=== PATIENT | female | born 1945 | race Native Hawaiian/Other Pacific Islander ===

== ENCOUNTER 2016-05-03 08:38 | Emergency (ER) | payer MEDICARE, MEDICAID ==
[2016-05-03] MEDS ORDERED: FUROSEMIDE 40 MG/4 ML VIAL IVP STA (09:48)
[2016-05-03] MEDS ORDERED: FUROSEMIDE 20 MG/2 ML VIAL IVP ONE (09:53)
[2016-05-03] MEDS ORDERED: AZITHROMYCIN 250 MG TABLET PO STA (10:35)
[2016-05-03] MEDS ORDERED: AZITHROMYCIN 250 MG TABLET PO ONE (10:39)
== END 2016-05-03 11:25 | disposition home or self-care (01) ==
DX: J18.9 Pneumonia, unspecified organism (principal); N30.00 Acute cystitis without hematuria; I50.9 Heart failure, unspecified; I48.91 Unspecified atrial fibrillation; Z79.01 Long term (current) use of anticoagulants; R01.1 Cardiac murmur, unspecified
CPT/HCPCS: 36415; 71020; 80053; 80162; 81001; 83690; 83880; 84484; 85025; 87077; 87086; 87181; 93005; 93010; 96374; 99283; 99284; A9270

== ENCOUNTER 2016-10-06 09:44 | Outpatient (CLI) | payer MEDICARE, MEDICAID ==
[2016-10-06 19:15] LABS: BASOPHILS % (AUTO) 0.3 %; EOSINOPHILS % (AUTO) 0.1 %; HCT - HEMATOCRIT 36.9 % (37.0-47.0); HGB - HEMOGLOBIN 12.2 g/dL (12.0-16.0); LYMPHOCYTES # (AUTO) 0.8 10^3/uL (1.5-3.5); LYMPHOCYTES % (AUTO) 9.7 %; MEAN CORPUSCULAR HEMOGLOBIN 31.8 pg (27.0-31.0); MEAN CORPUSCULAR HGB CONC 33.2 g/dL (32.0-36.0); MEAN PLATELET VOLUME 7.6 fL (7.9-10.8); MONOCYTES # (AUTO) 0.5 10^3/uL (0.0-1.0); MONOCYTES % (AUTO) 6.8 %; NEUTROPHILS # (AUTO) 6.6 10^3/uL (1.5-6.6); NEUTROPHILS % (AUTO) 83.1 %; RED BLOOD COUNT 3.84 10^6/uL (4.20-5.40); RED CELL DISTRIBUTION WIDTH 12.4 % (12.0-15.0)
[2016-10-06 20:25] LABS: ALBUMIN/GLOBULIN RATIO 1.4 (1.0-2.2); BILIRUBIN,TOTAL 0.5 mg/dL (0.2-1.0); BUN - BLOOD UREA NITROGEN 16 mg/dL (6-20); CALCIUM 9.4 mg/dL (8.5-10.3); CARBON DIOXIDE - CO2 32 mmol/L (21-32); CHLORIDE 98 mmol/L (101-111); CREATININE 0.7 mg/dL (0.4-1.0); GFR - MDRD 82 (>89); GLUCOSE 137 mg/dL (70-100); POTASSIUM 3.7 mmol/L (3.5-5.0); SODIUM 139 mmol/L (135-145); TOTAL PROTEIN 7.3 g/dL (6.7-8.2)
[2016-10-06 20:52] LABS: THYROID STIMULATING HORMONE 2.53 uIU/mL (0.34-5.60)
[2016-10-06 20:58] LABS: HEMOGLOBIN A1C 0.56 g/dL
== END 2016-10-06 23:59 ==
LOC: LAB.WCP 09:44
PROVIDERS: ATTEND Physician Assistant Medical
DX: G62.9 Polyneuropathy, unspecified (principal)
CPT/HCPCS: 36415; 80053; 80162; 82607; 83036; 84207; 84425; 84443; 85025

== ENCOUNTER 2016-10-21 13:03 | Outpatient (CLI) | payer MEDICARE, MEDICAID ==
--- NOTE | 2016-10-24 10:50 | Ultrasound Report ---
BILATERAL LOWER EXTREMITY ARTERIAL DUPLEX: 10/21/2016 CLINICAL INDICATION: Peripheral vascular disease. COMPARISON: 07/06/2015. TECHNIQUE: Real-time sonographic vascular imaging was performed by the electrician constructor supervisor through the lower extremities utilizing both color-flow and Doppler spectral analysis. Multiple signs and displays sales representative static images were saved for review. RIGHT SIDE SITE PSV WAVEFORM STEN DITCHING MACHINE ENGINEER 58 biphasic PSFA 75 biphasic MSFA 57 biphasic DSFA 61 biphasic PFA 95 biphasic POP 46 biphasic NAIF 38 biphasic STEAM PLANT RECORDS CLERK 79 biphasic PER 47 biphasic DPA 25 biphasic LEFT SIDE SITE PSV WAVEFORM STEN DITCHING MACHINE ENGINEER 84 triphasic PSFA 72 triphasic MSFA 64 biphasic DSFA 57 biphasic PFA 72 triphasic POP 48 biphasic NAIF 51 biphasic STEAM PLANT RECORDS CLERK 86 biphasic PER 66 monophasic FINDINGS: RIGHT LEG: Waveforms are predominantly biphasic. There is no evidence of a focal velocity increase to suggest a hemodynamically significant stenosis. LEFT LEG: Waveforms are predominantly biphasic. There is no evidence of a focal velocity increase to suggest a hemodynamically significant stenosis. IMPRESSION: NO EVIDENCE OF A HEMODYNAMICALLY SIGNIFICANT ARTERIAL STENOSIS IN EITHER LEG. NO SIGNIFICANT INTERVAL CHANGE. MTDD
== END 2016-10-21 13:04 | disposition home or self-care (01) ==
LOC: DI 13:03
PROVIDERS: ATTEND Physician Assistant Medical
DX: I73.9 Peripheral vascular disease, unspecified (principal); G62.9 Polyneuropathy, unspecified
CPT/HCPCS: 93925

== ENCOUNTER 2017-01-10 08:00 | Outpatient (CLI) | payer MEDICARE, MEDICAID ==
[2017-01-10 19:33] LABS: BUN - BLOOD UREA NITROGEN 10 mg/dL (6-20); CARBON DIOXIDE - CO2 34 mmol/L (21-32); CHLORIDE 99 mmol/L (101-111); CREATININE 0.7 mg/dL (0.4-1.0); GFR - MDRD 82 (>89); GLUCOSE 119 mg/dL (70-100); POTASSIUM 3.5 mmol/L (3.5-5.0); SODIUM 137 mmol/L (135-145)
== END 2017-01-10 08:01 | disposition home or self-care (01) ==
LOC: LAB.WCP 08:00
PROVIDERS: ATTEND Internal Medicine Cardiovascular Disease
DX: I48.2 Chronic atrial fibrillation (principal); I36.1 Nonrheumatic tricuspid (valve) insufficiency; I27.2 Other secondary pulmonary hypertension; I10 Essential (primary) hypertension
CPT/HCPCS: 36415; 80048; 80162

== ENCOUNTER 2017-02-01 13:20 | Outpatient (CLI) | payer MEDICARE, MEDICAID ==
[2017-02-01 12:52] LABS: CALCIUM 9.2 mg/dL (8.5-10.3); CREATININE 0.8 mg/dL (0.4-1.0); POTASSIUM 3.6 mmol/L (3.5-5.0)
== END 2017-02-01 13:21 | disposition home or self-care (01) ==
LOC: LAB.WCP 13:20
PROVIDERS: ATTEND Internal Medicine Cardiovascular Disease
DX: I48.2 Chronic atrial fibrillation (principal)
CPT/HCPCS: 36415; 80048

== ENCOUNTER 2017-05-19 08:00 | Outpatient (CLI) | payer MEDICARE, MEDICAID ==
[2017-05-19 18:55] LABS: BASOPHILS # (AUTO) 0.1 10^3/uL (0.0-0.1); BASOPHILS % (AUTO) 1.1 %; EOSINOPHILS # (AUTO) 0.2 10^3/uL (0.0-0.7); EOSINOPHILS % (AUTO) 3.5 %; HGB - HEMOGLOBIN 13.1 g/dL (12.0-16.0); LYMPHOCYTES # (AUTO) 1.2 10^3/uL (1.5-3.5); LYMPHOCYTES % (AUTO) 21.9 %; MEAN CORPUSCULAR HEMOGLOBIN 30.4 pg (27.0-31.0); MEAN CORPUSCULAR HGB CONC 32.4 g/dL (32.0-36.0); MEAN CORPUSCULAR VOLUME 93.9 fL (81.0-99.0); MEAN PLATELET VOLUME 7.9 fL (7.9-10.8); MONOCYTES # (AUTO) 0.5 10^3/uL (0.0-1.0); MONOCYTES % (AUTO) 9.8 %; NEUTROPHILS # (AUTO) 3.4 10^3/uL (1.5-6.6); NEUTROPHILS % (AUTO) 63.7 %; PLT - PLATELET COUNT 219 10^3/uL (130-450); RED CELL DISTRIBUTION WIDTH 12.9 % (12.0-15.0); WHITE BLOOD COUNT 5.3 x10^3/uL (4.8-10.8)
[2017-05-19 19:08] LABS: ALBUMIN 4.1 g/dL (3.2-5.5); ALBUMIN/GLOBULIN RATIO 1.2 (1.0-2.2); ALKALINE PHOSPHATASE 63 IU/L (42-121); ALT ALANINE AMINOTRANSFERASE 18 IU/L (10-60); AST ASPARTATE AMINOTRANSFERASE 32 IU/L (10-42); BILIRUBIN,TOTAL 0.7 mg/dL (0.2-1.0); BUN - BLOOD UREA NITROGEN 12 mg/dL (6-20); CARBON DIOXIDE - CO2 30 mmol/L (21-32); CHLORIDE 99 mmol/L (101-111); CREATININE 0.9 mg/dL (0.4-1.0); GFR - MDRD 61 (>89); GLUCOSE 105 mg/dL (70-100); SODIUM 136 mmol/L (135-145); TOTAL PROTEIN 7.5 g/dL (6.7-8.2)
== END 2017-05-19 08:01 | disposition home or self-care (01) ==
LOC: LAB.WCP 08:00
PROVIDERS: ATTEND Physician Assistant Medical
DX: Z51.81 Encounter for therapeutic drug level monitoring (principal); I48.0 Paroxysmal atrial fibrillation
CPT/HCPCS: 36415; 80053; 84443; 85025; 87640

== ENCOUNTER 2017-05-26 12:08 | Outpatient (CLI) | payer MEDICARE, MEDICAID ==
[2017-05-26] MEDS ORDERED: IOPAMIDOL-300 100 ML VIAL ONE (13:59)
[2017-05-26] MEDS ORDERED: IOPAMIDOL-300 100 ML VIAL IVP ONE (14:00)
--- NOTE | 2017-05-29 13:53 | CT Report ---
CT CHEST WITH CONTRAST: 05/26/2017 CLINICAL INDICATION: Shortness of breath, history of pneumonia. COMPARISON: 10/03/2015, chest x-ray of 05/19/2017. TECHNIQUE: Axial CT images of the chest were obtained with 80 mL Isovue 300 IV. FINDINGS: The heart and great vessels demonstrate mild atherosclerotic calcification. No hilar or mediastinal lymphadenopathy is present. The previously seen large hiatal hernia, containing the stomach and a portion of the colon, appears stable. Adjacent atelectasis appears unchanged from previous CT of 10/03/2015. No new infiltrate, effusion, or pneumothorax is present. Osseous structures demonstrate degenerative changes. Limited evaluation of upper abdominal structures demonstrates normal adrenal glands. IMPRESSION: STABLE LARGE HIATAL HERNIA WITH ASSOCIATED ATELECTASIS. NO SIGNIFICANT INTERVAL CHANGE FROM 10/03/2015. In accordance with CT protocol optimization, one or more of the following dose reduction techniques were utilized for this exam: automated exposure control, adjustment of mA and/or KV based on patient size, or use of iterative reconstructive technique. TD: 05/26/2017 17:22 [email or web address]
== END 2017-05-26 12:09 | disposition home or self-care (01) ==
LOC: DI 12:08
PROVIDERS: ATTEND Physician Assistant Medical
DX: K44.9 Diaphragmatic hernia without obstruction or gangrene (principal); J98.11 Atelectasis
CPT/HCPCS: 71260; Q9967

== ENCOUNTER 2017-07-10 12:04 | Outpatient (CLI) | payer MEDICARE, MEDICAID | END 2017-07-10 12:05 | disposition home or self-care (01) | LOC: LAB 12:04 | PROVIDERS: ATTEND Orthopaedic Surgery | DX: M17.12 Unilateral primary osteoarthritis, left knee (principal) | CPT/HCPCS: 36415; 86850; 86900; 86901 ==

== ENCOUNTER 2017-07-11 06:12 | Inpatient (IN) | payer MEDICARE, MEDICAID ==
[2017-07-11] MEDS ORDERED: ceFAZolin 2 GM/50 ML 2 GM/50 ML BAG IV ONE (06:29)
[2017-07-11] MEDS ORDERED: ACETAMINOPHEN 1,000 MG/100 ML 100 ML IV ONE ×2 (06:30→08:30)
[2017-07-11] MEDS ORDERED: CELECOXIB 100 MG CAPSULE PO ONE (06:30)
[2017-07-11] MEDS ORDERED: LACTATED RINGERS 1,000 ML IV ONE ×2 (07:00→11:15)
[2017-07-11] MEDS ORDERED: SODIUM CHLORIDE 0.9% 30 ML ONE (07:22)
[2017-07-11] MEDS ORDERED: SODIUM CHLORIDE 0.9% 10 ML ONE (07:49)
[2017-07-11] MEDS ORDERED: DEXAMETHASONE 4 MG/ML VIAL IVP ONE (08:30)
[2017-07-11] MEDS ORDERED: PHENYLEPHRINE 10 MG/ML VIAL IV ONE (08:30)
[2017-07-11] MEDS ORDERED: LIDOCAINE-MPF 2% 5 ML VIAL IM ONE (08:30)
[2017-07-11] MEDS ORDERED: SODIUM CHLORIDE 0.9% 10 ML VIAL IV ONE (08:30)
[2017-07-11] MEDS ORDERED: fentaNYL 100 MCG/2 ML VIAL IVP ONE (08:30)
[2017-07-11] MEDS ORDERED: TRANEXAMIC ACID 1,000 MG/10 ML VIAL IV ONE (08:30)
[2017-07-11] MEDS: BUPIVACAINE 0.5% PF 10 ML VIAL ONE ×2 (08:30→09:35)
[2017-07-11] MEDS ORDERED: ONDANSETRON 4 MG/2 ML VIAL IVP ONE (08:30)
[2017-07-11] MEDS ORDERED: MIDAZOLAM 2 MG/2 ML VIAL IVP ONE (08:30)
[2017-07-11] MEDS ORDERED: ePHEDrine 50 MG/ML VIAL IVP ONE (08:30)
[2017-07-11] MEDS: EPINEPHrine 1 MG/ML AMP ONE ×2 (08:31→09:00)
[2017-07-11] MEDS: KETOROLAC 15 MG/ML VIAL ONE ×2 (08:31→09:00)
[2017-07-11] MEDS: ROPIVACAINE 0.5% PF 20 ML AMPULE ONE ×2 (08:33→09:00)
[2017-07-11] MEDS ORDERED: MORPHINE PF 10 MG/10 ML AMP SUBQ ONE ×2 (08:33→09:00)
[2017-07-11] MEDS ORDERED: BUPIVACAINE 0.5% PF 10 ML VIAL ONE (08:43)
--- NOTE | 2017-07-11 10:09 | OPERATIVE REPORT ---
Operative Report - General Admit Date: 07/11/17 Procedure Date: 07/11/17 Planned Procedure: left TKA Pre-Op Diagnosis: DJD left knee Procedure Performed: Left Total Knee Arthroplasty Post Op Diagnosis: same - Procedure Note Primary Surgeon: elmer Anesthesia Technique: Combo spinal/epidural, General ET tube Estimated Blood Loss (mL): 100 - Other Other Information/Narrative: The patient is expected to have inpatient hospitalization under 96 Hours.
[2017-07-11] MEDS ORDERED: PROCHLORPERAZINE 10 MG/2 ML VIAL IVP PRN (10:11)
[2017-07-11] MEDS ORDERED: SENNA 8.6 MG TABLET PO PRN (10:11)
[2017-07-11] MEDS ORDERED: ONDANSETRON 4 MG/2 ML VIAL IVP PRN (10:11)
[2017-07-11] MEDS ORDERED: SODIUM CHLORIDE FLUSH 0.9% 10 ML SYRINGE IVP PRN (10:11)
[2017-07-11] MEDS ORDERED: ACETAMINOPHEN 325 MG TABLET PO PRN (10:11)
[2017-07-11] MEDS ORDERED: ACETAMINOPHEN 1,000 MG/100 ML 100 ML IV PRN (10:11)
[2017-07-11] MEDS ORDERED: BISACODYL 10 MG SUPP PR PRN (10:11)
[2017-07-11] MEDS ORDERED: HYDROmorphone 1 MG/ML CARPUJECT IVP PRN (10:11)
[2017-07-11] MEDS: SODIUM CHLORIDE 0.45% 1,000 ML IV SCH ×2 (11:45→22:30)
--- NOTE | 2017-07-11 12:06 | OPERATIVE REPORT ---
DATE OF SERVICE: Physician: Gabriela Flores MD DATE OF SURGERY: 07/11/2017 PREOPERATIVE DIAGNOSIS: Left knee osteoarthritis, severe. POSTOPERATIVE DIAGNOSIS: Left knee osteoarthritis, severe. PROCEDURE PERFORMED: Left cemented total knee replacement arthroplasty. OPERATING SURGEON: Gabriela Flores MD ANESTHESIA: Spinal and general. INDICATIONS FOR SURGERY: The patient is a 72-year-old female who has severe bilateral knee osteoarthritis with flexion contractures and varus deformities with severe difficulty with ambulation and activities of daily living. The patient has failed nonoperative measures of care and presents now for elective left total knee arthroplasty. FINDINGS AT SURGERY: The patient's knee exam under anesthesia revealed her range of motion to be 30 degrees to 100 degrees with stable varus, valgus, and Blanca exam with mild effusion. At open surgery, she was found to have extremely soft bone. During the arthroplasty, she had prominent osteophytes with severe cartilage loss of articular cartilage on the multiple surfaces of the knee, but predominantly the condyles and tibial plateaus. OPERATIVE PROCEDURE: The patient was taken to the operating room and was given an initial spinal anesthetic, which was questionable for efficacy, so general anesthesia was given. The patient's left thigh and leg were prepared for surgery with a well-padded tourniquet on the upper thigh, the knee and leg sterilely prepped and draped with position holders in place. Following this, a surgical timeout was held. The limb was exsanguinated and the tourniquet inflated to 300 mmHg. A curved incision was made around the medial aspect of the left knee, taken through skin and subcutaneous tissue down to the fascial layer. Further dissection carried in a medial parapatellar incision through the retinaculum and alongside the proximal junction of VMO and quadriceps expansion. The patient's knee was then exposed. Much of the fat pad was excised to expose the joint, ACL and PCL excised, osteophytes were removed. This was cautiously done because of the extreme soft nature of the patient's bone. Once the patient's knee was able to be flexed adequately with the patella slid to the side, the femur was drilled into for placement of intramedullary josep and distal cutting block. The cut was made with excess of 2 mm of bone removed to compensate for the flexion contracture. The sizing block, size 6, and the 4-in-1 cutting block was applied with extra pins because of soft bone. These cuts were very carefully made and then following this, the anterior and posterior aspects of the medial and lateral meniscus were removed, and the external tibial tower applied with the knee subluxated anteriorly and retractors positioned. A somewhat conservative proximal tibial cut was made after the guide was affixed to the tibia accounting for rotation slope and alignment. The drilling and broaching were performed in anticipation of having an extended tibial stem applied, and trial components were then inserted. The best alignment and stability was achieved with a 12 mm poly insert and these components were removed and the knee was prepared for cementing, carefully irrigating and drying surfaces, plugging the femoral canal drill hole and then cementing in place a size C tibial baseplate and a size 6 femoral component, and placing a poly trial in place to allow extension for cement hardening. At this point, the patella was prepared by resection of 22 mm down to 15, attempting to medialize the patella with the smallest size possible and a trial reduction was performed after drilling for the patella and inserting it, and a small amount of lateral release was performed to help accommodate better tracking. The patellar component was cemented into place and excess cement removed. The knee was again cycled and aunt with trial poly after which the implantable poly was brought into the field and inserted onto the tibial tray and locked into place. This yielded a very excellent reconstruction with range of motion 0-120 degrees and good medial, lateral, and anterior and posterior stability. The knee was flushed thoroughly including a 3 or 4 minute wash of dilute Betadine solution. Following this, deep infiltration was performed with a combination of analgesics and Toradol followed by skin infiltration with Marcaine. A very meticulous closure was done after the tourniquet had been deflated and bleeding controlled, and there was minimal bleeding. Closure was with FiberWire in the capsule tissues, 0 and 2-0 Vicryl for subcutaneous tissue and 4-0 Monocryl in the skin, interrupted. Sterile dressings were applied. The patient had a bulky compressive wrap applied, and was taken to recovery room in stable condition. ESTIMATED BLOOD LOSS: Less than 100 mL. COMPLICATIONS: None. COUNTS: Sponge and needle counts correct. IMPLANTS: [employer] Persona Femur, Narrow 6, Tibia base C, Poly 12mm, patella 29mm/8.5mm poly. TD: 07/11/2017 12:05 [email or web address]
--- NOTE | 2017-07-11 12:46 | XRAY Report ---
TWO VIEW LEFT KNEE: 07/11/2017 CLINICAL INDICATION: Postop knee replacement. FINDINGS: Frontal and lateral views of the left knee demonstrate a knee replacement in place. Subcutaneous gas is seen. There is no evidence of acute fracture or hardware complication. IMPRESSION: EXPECTED POSTOPERATIVE APPEARANCE OF LEFT KNEE REPLACEMENT. TD: 07/11/2017 11:01
[2017-07-11] MEDS: FUROSEMIDE 20 MG TABLET PO SCH (16:01)
[2017-07-11] MEDS: LISINOPRIL 5 MG TABLET PO SCH (16:01)
[2017-07-11] MEDS: ceFAZolin 2 GM/50 ML 2 GM/50 ML BAG IV SCH (16:01)
[2017-07-11] MEDS: SODIUM CHLORIDE FLUSH 0.9% 10 ML SYRINGE IVP SCH (16:50)
[2017-07-11] MEDS: METOPROLOL TARTRATE 25 MG TABLET PO SCH (18:44)
[2017-07-11] MEDS: POTASSIUM CHLORIDE 20 MEQ TABLET PO SCH (18:45)
[2017-07-11] MEDS: CALCIUM CARB (OYSTER SHELL) 500 MG TABLET PO SCH (18:45)
[2017-07-11] MEDS: CHOLECALCIFEROL 400 UNIT TABLET PO SCH (18:45)
[2017-07-11] MEDS: HYDROcod/ACETAM 5/325 MG TABLET PO PRN (18:45)
[2017-07-11] MEDS: APIXABAN 2.5 MG TABLET PO SCH (20:51)
[2017-07-11] MEDS: ERYTHROMYCIN OPHTH OINT 1 GM TUBE RIGHTEYE SCH (22:33)
[2017-07-12] MEDS: ceFAZolin 2 GM/50 ML 2 GM/50 ML BAG IV SCH (00:13)
[2017-07-12] MEDS: SODIUM CHLORIDE FLUSH 0.9% 10 ML SYRINGE IVP SCH ×3 (00:16→16:05)
[2017-07-12] MEDS: HYDROcod/ACETAM 5/325 MG TABLET PO PRN ×3 (03:30→18:42)
[2017-07-12 04:52] LABS: BASOPHILS % (AUTO) 0.2 %; HGB - HEMOGLOBIN 10.4 g/dL (12.0-16.0); LYMPHOCYTES % (AUTO) 14.1 %; MEAN CORPUSCULAR HEMOGLOBIN 30.7 pg (27.0-31.0); MEAN CORPUSCULAR HGB CONC 33.1 g/dL (32.0-36.0); MEAN CORPUSCULAR VOLUME 92.9 fL (81.0-99.0); MEAN PLATELET VOLUME 7.1 fL (7.9-10.8); MONOCYTES % (AUTO) 14.1 %; NEUTROPHILS % (AUTO) 71.6 %; PLT - PLATELET COUNT 168 10^3/uL (130-450); RED BLOOD COUNT 3.39 10^6/uL (4.20-5.40); RED CELL DISTRIBUTION WIDTH 13.1 % (12.0-15.0); WHITE BLOOD COUNT 6.9 x10^3/uL (4.8-10.8)
[2017-07-12 05:05] LABS: CALCIUM 8.4 mg/dL (8.5-10.3); CREATININE 1.1 mg/dL (0.4-1.0)
[2017-07-12] MEDS: DIGOXIN 125 MCG TABLET PO SCH (06:38)
[2017-07-12] MEDS: PANTOPRAZOLE 40 MG TABLET PO SCH (06:38)
--- NOTE | 2017-07-12 07:43 | PROVIDER PROGRESS NOTE ---
Subjective - General Admit Date: 07/11/17 Procedure Date: 07/11/17 Post Op Days: 2 Procedure Performed: left total Knee arthroplasty - Review of Systems Wound/Incisions: positive: Dressing dry and intact Gastrointestinal: positive: No symptoms Genitourinary: positive: No symptoms Musculoskeletal: positive: Joint pain Skin: positive: No symptoms Psychiatric: positive: No symptoms Objective - Patient Data Reviewed Vital Signs: Yes Vital Signs: Vital Signs x48h Temp Pulse Pulse Resp BP BP Pulse Ox 07/12/17 04:00 36.7 C 76 18 95/48 L 94 07/12/17 00:00 37.1 C 80 12 85/51 L 94 Weight: Weight 07/10/17 07/11/17 07/12/17 23:59 23:59 23:59 Weight (kg) 78 kg Intake & Output: Intake and Output Totals x24h 07/10/17 07/11/17 07/12/17 23:59 23:59 23:59 Intake Total 1350 350 Output Total 650 300 Balance 700 50 - Lab Results Lab Results: 07/13/17 04:30 07/12/17 04:44 Other Lab Results: Lab Results x24hrs 07/12/17 07/12/17 Range/Units 04:44 04:44 WBC 6.9 (4.8-10.8) x10^3/uL RBC 3.39 L (4.20-5.40) 10^6/uL Hgb 10.4 L (12.0-16.0) g/dL Hct 31.5 L (37.0-47.0) % MCV 92.9 (81.0-99.0) fL MCH 30.7 (27.0-31.0) pg MCHC 33.1 (32.0-36.0) g/dL RDW 13.1 (12.0-15.0) % Plt Count 168 (130-450) 10^3/uL MPV 7.1 L (7.9-10.8) fL Neut # 5.0 (1.5-6.6) 10^3/uL Lymph # 1.0 L (1.5-3.5) 10^3/uL [place] # 1.0 (0.0-1.0) 10^3/uL Eos # 0.0 (0.0-0.7) 10^3/uL Baso # 0.0 (0.0-0.1) 10^3/uL Absolute Nucleated RBC 0.00 x10^3/uL Nucleated RBC % 0.0 /100WBC Sodium 133 L (135-145) mmol/L Potassium 4.7 (3.5-5.0) mmol/L Chloride 99 L (101-111) mmol/L Carbon Dioxide 28 (21-32) mmol/L Anion Gap 6.0 (6-13) BUN 25 H (6-20) mg/dL Creatinine 1.1 H (0.4-1.0) mg/dL Estimated GFR (MDRD) 49 L (>89) Glucose 114 H (70-100) mg/dL Calcium 8.4 L (8.5-10.3) mg/dL - Imaging Results Radiology Imaging: positive: EMP read indepedently - Current Medications Current Medications: Current Medications Generic Name Dose Route Start Last Admin Trade Name Freq PRN Reason Stop Dose Admin Acetaminophen/Hydrocodone Bitart 1 tab 07/11/17 10:11 07/12/17 03:30 [place] 5/325 PO 1 tab Q4HR PRN Administration PAIN Apixaban 5 mg 07/11/17 21:00 07/11/17 20:51 Eliquis PO 5 mg BID MC Administration Calcium Carbonate/Glycine 500 mg 07/11/17 17:00 07/11/17 18:45 [place]-500 PO 500 mg QDDINNER MC Administration Cholecalciferol 400 unit 07/11/17 17:00 07/11/17 18:45 Vitamin D3 PO 400 unit QDDINNER MC Administration Digoxin 125 mcg 07/12/17 07:00 07/12/17 06:38 Lanoxin PO 125 mcg 0700 MC Administration Erythromycin 1 applic 07/11/17 21:00 07/11/17 22:33 Ilotycin Ophth Oint RIGHTEYE Not Given QPM MC Furosemide 20 mg 07/11/17 16:00 07/11/17 16:01 Lasix PO 20 mg 1600 MC Administration Sodium Chloride 1,000 mls @ 100 mls/hr 07/11/17 11:00 07/11/17 22:30 Normal Saline 0.45% IV 100 mls/hr .Q10H MC Administration Lisinopril 2.5 mg 07/11/17 16:00 07/11/17 16:01 Zestril PO 2.5 mg 1600 MC Administration Metoprolol Tartrate 12.5 mg 07/11/17 17:00 07/11/17 18:44 Lopressor PO 12.5 mg 0800,1700 MC Administration Pantoprazole Sodium 40 mg 07/12/17 07:00 07/12/17 06:38 Protonix PO 40 mg QDAC MC Administration Potassium Chloride 40 meq 07/11/17 17:00 07/11/17 18:45 K-Dur PO 40 meq 1700 MC Administration Sodium Chloride 10 ml 07/11/17 17:00 07/12/17 00:16 Normal Saline Flush 0.9% IVP Not Given 0100,0900,1700 MC - Physical Exam Wound/Incisions: positive: Dressing dry and intact General Appearance: positive: No acute distress Skin: positive: No rash Extremities: positive: Joint swelling Neurologic/Psychiatric: positive: Motor nml, Sensation nml, Mood/affect nml Impression/Plan - Problem List Problem List: POD #1: Pt is progressing well with decreasing pain. Begin PT.
[2017-07-12] MEDS: APIXABAN 2.5 MG TABLET PO SCH ×2 (08:47→20:56)
[2017-07-12] MEDS: MULTIVITAMIN TABLET PO SCH (08:47)
[2017-07-12] MEDS: METOPROLOL TARTRATE 25 MG TABLET PO SCH ×2 (08:48→16:02)
[2017-07-12] MEDS: FUROSEMIDE 40 MG TABLET PO SCH (08:49)
[2017-07-12] MEDS: SODIUM CHLORIDE 0.45% 1,000 ML IV SCH ×2 (09:04→18:43)
[2017-07-12] MEDS: POTASSIUM CHLORIDE 20 MEQ TABLET PO SCH (16:01)
[2017-07-12] MEDS: CHOLECALCIFEROL 400 UNIT TABLET PO SCH (16:01)
[2017-07-12] MEDS: CALCIUM CARB (OYSTER SHELL) 500 MG TABLET PO SCH (16:01)
[2017-07-12] MEDS: FUROSEMIDE 20 MG TABLET PO SCH (16:02)
[2017-07-12] MEDS: LISINOPRIL 5 MG TABLET PO SCH (16:02)
[2017-07-12] MEDS: ERYTHROMYCIN OPHTH OINT 1 GM TUBE RIGHTEYE SCH (20:57)
[2017-07-13] MEDS: HYDROcod/ACETAM 5/325 MG TABLET PO PRN ×4 (04:27→20:36)
[2017-07-13] MEDS: SODIUM CHLORIDE FLUSH 0.9% 10 ML SYRINGE IVP SCH ×3 (04:28→16:01)
[2017-07-13 04:43] LABS: BASOPHILS # (AUTO) 0.1 10^3/uL (0.0-0.1); BASOPHILS % (AUTO) 0.8 %; EOSINOPHILS # (AUTO) 0.3 10^3/uL (0.0-0.7); EOSINOPHILS % (AUTO) 3.9 %; HGB - HEMOGLOBIN 10.8 g/dL (12.0-16.0); LYMPHOCYTES # (AUTO) 1.5 10^3/uL (1.5-3.5); LYMPHOCYTES % (AUTO) 22.3 %; MEAN CORPUSCULAR HEMOGLOBIN 30.6 pg (27.0-31.0); MEAN CORPUSCULAR HGB CONC 32.4 g/dL (32.0-36.0); MEAN CORPUSCULAR VOLUME 94.3 fL (81.0-99.0); MEAN PLATELET VOLUME 7.4 fL (7.9-10.8); MONOCYTES % (AUTO) 15.1 %; NEUTROPHILS # (AUTO) 3.8 10^3/uL (1.5-6.6); NEUTROPHILS % (AUTO) 57.9 %; PLT - PLATELET COUNT 166 10^3/uL (130-450); RED BLOOD COUNT 3.53 10^6/uL (4.20-5.40); RED CELL DISTRIBUTION WIDTH 13.7 % (12.0-15.0); WHITE BLOOD COUNT 6.5 x10^3/uL (4.8-10.8)
[2017-07-13] MEDS: SODIUM CHLORIDE 0.45% 1,000 ML IV SCH ×3 (05:12→20:39)
[2017-07-13] MEDS: PANTOPRAZOLE 40 MG TABLET PO SCH (06:35)
[2017-07-13] MEDS: DIGOXIN 125 MCG TABLET PO SCH (06:35)
[2017-07-13] MEDS: METOPROLOL TARTRATE 25 MG TABLET PO SCH ×2 (09:00→16:01)
[2017-07-13] MEDS: FUROSEMIDE 40 MG TABLET PO SCH (09:00)
[2017-07-13] MEDS: APIXABAN 2.5 MG TABLET PO SCH ×2 (09:00→20:36)
[2017-07-13] MEDS: MULTIVITAMIN TABLET PO SCH (09:00)
--- NOTE | 2017-07-13 09:23 | PROVIDER PROGRESS NOTE ---
Subjective - General Admit Date: 07/11/17 Procedure Date: 07/11/17 Post Op Days: 2 Procedure Performed: left total Knee arthroplasty - Review of Systems Wound/Incisions: positive: Dressing dry and intact HEENT: positive: No symptoms Pulmonary: positive: No symptoms Cardiovascular: positive: No symptoms Gastrointestinal: positive: No symptoms Genitourinary: positive: No symptoms Musculoskeletal: positive: Joint pain Skin: positive: No symptoms Psychiatric: positive: No symptoms Objective - Patient Data Reviewed Vital Signs: Yes Vital Signs: Vital Signs x48h Temp Pulse Resp BP Pulse Ox 07/13/17 08:58 36.2 C L 86 16 98/77 94 07/13/17 04:49 36.7 C 78 18 102/50 L 95 Weight: Weight 07/11/17 07/12/17 07/13/17 23:59 23:59 23:59 Weight (kg) 78 kg Intake & Output: Intake and Output Totals x24h 07/11/17 07/12/17 07/13/17 23:59 23:59 23:59 Intake Total 1350 2890 1715 Output Total 650 525 100 Balance 700 2365 1615 - Lab Results Lab Results: 07/13/17 04:30 07/12/17 04:44 Other Lab Results: Lab Results x24hrs 07/13/17 Range/Units 04:30 WBC 6.5 (4.8-10.8) x10^3/uL RBC 3.53 L (4.20-5.40) 10^6/uL Hgb 10.8 L (12.0-16.0) g/dL Hct 33.3 L (37.0-47.0) % MCV 94.3 (81.0-99.0) fL MCH 30.6 (27.0-31.0) pg MCHC 32.4 (32.0-36.0) g/dL RDW 13.7 (12.0-15.0) % Plt Count 166 (130-450) 10^3/uL MPV 7.4 L (7.9-10.8) fL Neut # 3.8 (1.5-6.6) 10^3/uL Lymph # 1.5 (1.5-3.5) 10^3/uL [place] # 1.0 (0.0-1.0) 10^3/uL Eos # 0.3 (0.0-0.7) 10^3/uL Baso # 0.1 (0.0-0.1) 10^3/uL Absolute Nucleated RBC 0.00 x10^3/uL Nucleated RBC % 0.0 /100WBC - Current Medications Current Medications: Current Medications Generic Name Dose Route Start Last Admin Trade Name Freq PRN Reason Stop Dose Admin Acetaminophen/Hydrocodone Bitart 1 tab 07/11/17 10:11 07/13/17 09:03 [place] 5/325 PO 1 tab Q4HR PRN Administration PAIN Apixaban 5 mg 07/11/17 21:00 07/13/17 09:00 Eliquis PO 5 mg BID MC Administration Calcium Carbonate/Glycine 500 mg 07/11/17 17:00 07/12/17 16:01 Oysco-500 PO 500 mg QDDINNER [facility] Administration Cholecalciferol 400 unit 07/11/17 17:00 07/12/17 16:01 Vitamin D3 PO 400 unit QDDINNER [facility] Administration Digoxin 125 mcg 07/12/17 07:00 07/13/17 06:35 Lanoxin PO 125 mcg 0700 MC Administration Erythromycin 1 applic 07/11/17 21:00 07/12/17 20:57 Ilotycin Ophth Oint RIGHTEYE 1 applic QPM MC Administration Furosemide 20 mg 07/11/17 16:00 07/12/17 16:02 Lasix PO 20 mg 1600 MC Administration Furosemide 40 mg 07/12/17 08:00 07/13/17 09:00 Lasix PO 40 mg 0800 MC Administration Hydromorphone HCl 1 mg 07/11/17 10:11 07/12/17 14:41 Dilaudid Inj Carp IVP 1 mg Q2HR PRN Administration Breakthrough Pain Sodium Chloride 1,000 mls @ 100 mls/hr 07/11/17 11:00 07/13/17 08:21 Normal Saline 0.45% IV 0 mls/hr .Q10H MC Infusion Lisinopril 2.5 mg 07/11/17 16:00 07/12/17 16:02 Zestril PO 2.5 mg 1600 MC Administration Metoprolol Tartrate 12.5 mg 07/11/17 17:00 07/13/17 09:00 Lopressor PO 12.5 mg 0800,1700 MC Administration Multivitamins 1 tab 07/12/17 09:00 07/13/17 09:00 Theragran PO 1 tab DAILY MC Administration Pantoprazole Sodium 40 mg 07/12/17 07:00 07/13/17 06:35 Protonix PO 40 mg QDAC MC Administration Potassium Chloride 40 meq 07/11/17 17:00 07/12/17 16:01 K-Dur PO 40 meq 1700 MC Administration Sodium Chloride 10 ml 07/11/17 17:00 07/13/17 09:00 Normal Saline Flush 0.9% IVP 10 ml 0100,0900,1700 MC Administration - Physical Exam Wound/Incisions: positive: Healing well General Appearance: positive: No acute distress Cardiovascular: positive: Regular rate & rhythm Abdomen: positive: Non-tender Skin: positive: No rash, Warm, Dry Extremities: positive: Joint swelling Neurologic/Psychiatric: positive: Oriented x3, CN's nml (2-12), Motor nml, Sensation nml, Mood/affect nml Impression/Plan - Problem List Problem List: POD #2 Pt is progressing well. Needs further PT and pain control to be improved with PO meds.
--- NOTE | 2017-07-13 09:32 | Discharge Plan ---
Discharge Plan Disposition: Home, Self Care Condition: Good Prescriptions: HYDROcod/ACETAM 5/325 [[place] 5/325] 1 tab PO Q4HR PRN #30 tablet PRN Reason: Pain Bisacodyl Supp [Dulcolax Supp] 10 mg MA Q12H PRN #10 supp PRN Reason: Constipation Senna [Senokot] 17.2 mg PO Q12H PRN #20 tablet PRN Reason: Constipation Diet: Low Sodium Activity Restrictions: Wt Bearing as Tolerated Shower Restrictions: Yes (cover wound) Driving Restrictions: Yes (no driving) Assistance Devices: Walker Weight Bearing: Full Weight Additional Instructions or Follow Up instructions: F/U in Ortho Clinic next week Keep dressing in place, and clean and dry. Use walker at home. No kneeling, or step stool use. No Smoking: If you smoke, Please STOP! Call for help. Follow-up with: Larissa Steen PA-C [Primary Care Provider] - Gabriela Flores MD [Provider Admit Priv/Credential] -
[2017-07-13] MEDS: LISINOPRIL 5 MG TABLET PO SCH (15:50)
[2017-07-13] MEDS: FUROSEMIDE 20 MG TABLET PO SCH (15:50)
[2017-07-13] MEDS: CHOLECALCIFEROL 400 UNIT TABLET PO SCH (16:00)
[2017-07-13] MEDS: POTASSIUM CHLORIDE 20 MEQ TABLET PO SCH (16:00)
[2017-07-13] MEDS: CALCIUM CARB (OYSTER SHELL) 500 MG TABLET PO SCH (16:00)
[2017-07-13] MEDS: ERYTHROMYCIN OPHTH OINT 1 GM TUBE RIGHTEYE SCH (20:37)
[2017-07-14] MEDS: SODIUM CHLORIDE FLUSH 0.9% 10 ML SYRINGE IVP SCH ×2 (00:36→07:50)
[2017-07-14] MEDS: DIGOXIN 125 MCG TABLET PO SCH (06:31)
[2017-07-14] MEDS: PANTOPRAZOLE 40 MG TABLET PO SCH (06:32)
[2017-07-14] MEDS: SODIUM CHLORIDE 0.45% 1,000 ML IV SCH (07:50)
[2017-07-14] MEDS: MULTIVITAMIN TABLET PO SCH (08:19)
[2017-07-14] MEDS: APIXABAN 2.5 MG TABLET PO SCH (08:19)
[2017-07-14] MEDS: METOPROLOL TARTRATE 25 MG TABLET PO SCH (08:19)
[2017-07-14] MEDS: FUROSEMIDE 40 MG TABLET PO SCH (08:25)
[2017-07-14 08:33] VITALS: BP 113/72
--- NOTE | 2017-07-19 11:48 | DISCHARGE SUMMARY ---
Physician: Gabriela Flores MD DATE OF ADMISSION: 07/11/2017 DATE OF DISCHARGE: 07/14/2017 ADMISSION DIAGNOSIS: Left knee osteoarthritis. OPERATIVE PROCEDURE: On 07/11/2017, left total knee replacement arthroplasty. REASON FOR ADMISSION: The patient is a 72-year-old female with progressive severe osteoarthritis of her bilateral knees, who is admitted at this point for left total knee arthroplasty. The patient has chronic knee pain with restricted function, restricted range of motion and chronic pain. The patient has not responded to conservative measures of treatment and desires total knee arthroplasty. The patient's prior medical history is documented in her admission records. HOSPITAL COURSE: The patient was admitted and underwent surgery on 07/11/2017. She tolerated this well. In the postoperative period, she was placed on the medical/surgical floor where she received standard care post-total knee arthroplasty including fluid hydration, early physical therapy, IV antibiotics, catheterization with early removal of the Loving catheter. The patient also had resumption of her blood thinner use Eliquis. The patient showed uneventful recovery and was able to be discharged to home in the care of her daughter on 07/14/2017. At discharge, the patient was given instructions to resume her usual medication and to resume medications of acetaminophen/hydrocodone, senna and Dulcolax if needed. She was to be weightbearing as tolerated with a walker and was to have dressings left intact on her knee. Her followup appointment was in Orthopedic Clinic within 1 week. TD: 07/19/2017 11:47
== END 2017-07-14 11:11 | disposition home or self-care (01) | DRG 470 ==
LOC: MS3 06:12
PROVIDERS: ADMIT Orthopaedic Surgery; ATTEND Orthopaedic Surgery
PROC: 0SRD069 Replacement of Left Knee Joint with Oxidized Zirconium on Polyethylene Synthetic Substitute, Cemented, Open Approach (ICD-10-PCS; principal; 2017-07-11 07:30)
DX: M17.12 Unilateral primary osteoarthritis, left knee (principal); I48.91 Unspecified atrial fibrillation; I11.0 Hypertensive heart disease with heart failure; I50.9 Heart failure, unspecified; K44.9 Diaphragmatic hernia without obstruction or gangrene; Z79.01 Long term (current) use of anticoagulants
CPT/HCPCS: 36415; 80048; 85025

== ENCOUNTER 2017-08-07 08:40 | Outpatient (CLI) | payer MEDICARE, MEDICAID ==
[2017-08-07 11:14] LABS: BASOPHILS # (AUTO) 0.1 10^3/uL (0.0-0.1); BASOPHILS % (AUTO) 1.1 %; EOSINOPHILS # (AUTO) 0.2 10^3/uL (0.0-0.7); EOSINOPHILS % (AUTO) 3.6 %; HGB - HEMOGLOBIN 10.8 g/dL (12.0-16.0); LYMPHOCYTES # (AUTO) 0.8 10^3/uL (1.5-3.5); LYMPHOCYTES % (AUTO) 17.6 %; MEAN CORPUSCULAR HEMOGLOBIN 30.4 pg (27.0-31.0); MEAN CORPUSCULAR HGB CONC 32.5 g/dL (32.0-36.0); MEAN CORPUSCULAR VOLUME 93.6 fL (81.0-99.0); MEAN PLATELET VOLUME 6.8 fL (7.9-10.8); MONOCYTES # (AUTO) 0.5 10^3/uL (0.0-1.0); MONOCYTES % (AUTO) 10.4 %; NEUTROPHILS # (AUTO) 3.1 10^3/uL (1.5-6.6); NEUTROPHILS % (AUTO) 67.3 %; PLT - PLATELET COUNT 305 10^3/uL (130-450); RED BLOOD COUNT 3.54 10^6/uL (4.20-5.40); RED CELL DISTRIBUTION WIDTH 13.2 % (12.0-15.0); WHITE BLOOD COUNT 4.6 x10^3/uL (4.8-10.8)
[2017-08-07 11:27] LABS: ALBUMIN 3.8 g/dL (3.2-5.5); ALBUMIN/GLOBULIN RATIO 1.1 (1.0-2.2); ALKALINE PHOSPHATASE 119 IU/L (42-121); ALT ALANINE AMINOTRANSFERASE 15 IU/L (10-60); AST ASPARTATE AMINOTRANSFERASE 28 IU/L (10-42); BILIRUBIN,TOTAL 0.6 mg/dL (0.2-1.0); BUN - BLOOD UREA NITROGEN 13 mg/dL (6-20); CALCIUM 8.9 mg/dL (8.5-10.3); CARBON DIOXIDE - CO2 29 mmol/L (21-32); CHLORIDE 97 mmol/L (101-111); CREATININE 0.8 mg/dL (0.4-1.0); GFR - MDRD 70 (>89); GLUCOSE 99 mg/dL (70-100); SODIUM 134 mmol/L (135-145); TOTAL PROTEIN 7.3 g/dL (6.7-8.2)
[2017-08-07 11:29] LABS: CRP - C-REACTIVE PROTEIN < 1.0 mg/dL (0-1.0)
== END 2017-08-07 23:59 ==
LOC: LAB.R 08:40
PROVIDERS: ATTEND Orthopaedic Surgery
DX: T81.31XA Disruption of external operation (surgical) wound, not elsewhere classified, initial encounter (principal)
CPT/HCPCS: 80053; 85025; 85651; 86140; 87070; 87205

== ENCOUNTER 2017-08-07 09:01 | Inpatient (IN) | payer MEDICARE, MEDICAID ==
[2017-08-07] MEDS ORDERED: SODIUM CHLORIDE FLUSH 0.9% 10 ML SYRINGE IVP PRN (09:40)
[2017-08-07] MEDS ORDERED: BISACODYL 10 MG SUPP PR PRN (09:46)
[2017-08-07] MEDS ORDERED: HYDROcod/ACETAM 5/325 MG TABLET PO PRN (09:46)
[2017-08-07] MEDS ORDERED: VANCOMYCIN INJ 1 GM in SODIUM CHLORIDE 0.9% 250 ML IV SCH (11:00)
[2017-08-07] MEDS: LACTATED RINGERS 1,000 ML IV SCH ×2 (11:01→21:37)
--- NOTE | 2017-08-07 11:02 | XRAY Report ---
TWO VIEW LEFT KNEE: 08/07/2017 CLINICAL INDICATION: Infection. FINDINGS: Frontal and lateral views of the left knee demonstrate fracture of the inferior margin of the patella, with approximately 2 cm displacement from the bulk of the patella and the patellar prosthesis. Femoral and tibial prostheses appear unchanged from 07/11/2017. Soft tissue swelling has decreased. IMPRESSION: INTERVAL PATELLAR FRACTURE, WITH 2 CM DISPLACEMENT. DECREASING SOFT TISSUE SWELLING. TD: 08/07/2017 11:00
[2017-08-07] MEDS ORDERED: ceFAZolin 2 GM/50 ML 2 GM/50 ML BAG IV SCH (12:00)
[2017-08-07] MEDS: VANCOMYCIN INJ 1 GM in SODIUM CHLORIDE 0.9% 250 ML IV SCH (13:05)
[2017-08-07] MEDS ORDERED: LISINOPRIL 5 MG TABLET PO SCH (16:00)
[2017-08-07] MEDS: FUROSEMIDE 20 MG TABLET PO SCH (16:58)
[2017-08-07] MEDS ORDERED: METOPROLOL TARTRATE 50 MG TABLET PO SCH (17:00)
[2017-08-07] MEDS: HEPARIN 5,000 UNIT/ML VIAL SUBQ SCH (20:37)
[2017-08-07] MEDS: ERYTHROMYCIN OPHTH OINT 1 GM TUBE RIGHTEYE SCH (20:39)
[2017-08-07] MEDS: SODIUM CHLORIDE FLUSH 0.9% 10 ML SYRINGE IVP SCH (20:39)
[2017-08-08] MEDS: SODIUM CHLORIDE FLUSH 0.9% 10 ML SYRINGE IVP SCH ×3 (00:20→18:14)
[2017-08-08] MEDS ORDERED: VANCOMYCIN 1 GM VIAL ONE ×2 (00:37→14:26)
[2017-08-08] MEDS: VANCOMYCIN INJ 1 GM in SODIUM CHLORIDE 0.9% 250 ML IV SCH ×2 (00:37→12:54)
[2017-08-08] MEDS ORDERED: SODIUM CHLORIDE 0.9% 250 ML IV ONE (00:38)
[2017-08-08] MEDS: DIGOXIN 125 MCG TABLET PO SCH (06:40)
[2017-08-08] MEDS: PANTOPRAZOLE 40 MG TABLET PO SCH (06:40)
[2017-08-08] MEDS ORDERED: METOPROLOL TARTRATE 25 MG TABLET PO SCH (08:18)
[2017-08-08] MEDS: HEPARIN 5,000 UNIT/ML VIAL SUBQ SCH (08:18)
[2017-08-08] MEDS: METOPROLOL TARTRATE 25 MG TABLET PO SCH ×2 (08:24→17:25)
[2017-08-08] MEDS: FUROSEMIDE 40 MG TABLET PO SCH (08:24)
[2017-08-08] MEDS: HYDROcod/ACETAM 7.5 MG/325 MG TABLET PO PRN ×2 (08:26→22:55)
[2017-08-08] MEDS: LACTATED RINGERS 1,000 ML IV SCH ×2 (08:27→18:13)
[2017-08-08] MEDS ORDERED: BUPIVACAINE 0.25%-EPI 1:200000 PF 30 ML VIAL ONE (13:13)
[2017-08-08] MEDS ORDERED: ceFAZolin 2 GM/50 ML 2 GM/50 ML BAG IV SCH ×2 (14:00→22:15)
[2017-08-08] MEDS ORDERED: LACTATED RINGERS 1,000 ML IV ONE ×2 (14:13→17:04)
--- NOTE | 2017-08-08 14:44 | OPERATIVE REPORT ---
Operative Report - General Admit Date: 08/07/17 Procedure Date: 08/08/17 Planned Procedure: Irrigation and debridement of left knee Pre-Op Diagnosis: infection and patella fx of anterior inferior left total knee incision and Procedure Performed: excision of lower incision area, debridement and irrigation, and exploration, closure. - Procedure Note Primary Surgeon: elmer Anesthesia Provider: Dr. flores Anesthesia Technique: General ET tube, General LMA Estimated Blood Loss (mL): 20
[2017-08-08] MEDS ORDERED: HYDROmorphone 1 MG/ML CARPUJECT IVP PRN (15:14)
[2017-08-08] MEDS ORDERED: fentaNYL 100 MCG/2 ML VIAL IVP ONE (16:21)
[2017-08-08] MEDS ORDERED: PROPOFOL 200 MG/20 ML VIAL IVP ONE (16:21)
[2017-08-08] MEDS: HYDROmorphone 0.5 MG/0.5 ML SYRINGE ONE ×2 (16:43→16:52)
[2017-08-08] MEDS: FUROSEMIDE 20 MG TABLET PO SCH (18:12)
[2017-08-08] MEDS: LISINOPRIL 5 MG TABLET PO SCH (18:12)
[2017-08-08] MEDS: ERYTHROMYCIN OPHTH OINT 1 GM TUBE RIGHTEYE SCH (22:49)
[2017-08-09] MEDS: VANCOMYCIN INJ 1 GM in SODIUM CHLORIDE 0.9% 250 ML IV SCH (00:43)
[2017-08-09] MEDS: SODIUM CHLORIDE FLUSH 0.9% 10 ML SYRINGE IVP SCH ×3 (00:46→16:14)
[2017-08-09 05:25] LABS: BASOPHILS # (AUTO) 0.1 10^3/uL (0.0-0.1); BASOPHILS % (AUTO) 1.3 %; EOSINOPHILS # (AUTO) 0.2 10^3/uL (0.0-0.7); EOSINOPHILS % (AUTO) 3.8 %; LYMPHOCYTES # (AUTO) 0.9 10^3/uL (1.5-3.5); LYMPHOCYTES % (AUTO) 23.2 %; MEAN CORPUSCULAR HEMOGLOBIN 30.1 pg (27.0-31.0); MEAN CORPUSCULAR HGB CONC 32.6 g/dL (32.0-36.0); MEAN CORPUSCULAR VOLUME 92.5 fL (81.0-99.0); MEAN PLATELET VOLUME 6.8 fL (7.9-10.8); MONOCYTES # (AUTO) 0.5 10^3/uL (0.0-1.0); MONOCYTES % (AUTO) 12.4 %; NEUTROPHILS # (AUTO) 2.4 10^3/uL (1.5-6.6); NEUTROPHILS % (AUTO) 59.3 %; PLT - PLATELET COUNT 274 10^3/uL (130-450); RED BLOOD COUNT 3.33 10^6/uL (4.20-5.40); RED CELL DISTRIBUTION WIDTH 13.3 % (12.0-15.0)
[2017-08-09 05:40] LABS: ALBUMIN/GLOBULIN RATIO 0.9 (1.0-2.2); BILIRUBIN,TOTAL 0.5 mg/dL (0.2-1.0); CALCIUM 8.2 mg/dL (8.5-10.3); CREATININE 0.6 mg/dL (0.4-1.0); TOTAL PROTEIN 6.3 g/dL (6.7-8.2)
[2017-08-09] MEDS: LACTATED RINGERS 1,000 ML IV SCH ×2 (05:57→19:42)
[2017-08-09] MEDS: PANTOPRAZOLE 40 MG TABLET PO SCH (06:40)
[2017-08-09] MEDS: DIGOXIN 125 MCG TABLET PO SCH (06:40)
--- NOTE | 2017-08-09 07:19 | PROVIDER PROGRESS NOTE ---
Subjective - General Admit Date: 08/07/17 Procedure Date: 08/08/17 Post Op Days: 1 Procedure Performed: Irrigation/debridement, closure - Review of Systems Wound/Incisions: positive: Dressing dry and intact Gastrointestinal: positive: No symptoms Objective - Patient Data Reviewed Vital Signs: Yes Vital Signs: Vital Signs x48h Temp Pulse Resp BP Pulse Ox 08/09/17 04:40 36.5 C 77 20 124/52 L 95 08/09/17 00:30 37.3 C 80 18 123/65 96 Weight: Weight 08/07/17 08/08/17 08/09/17 23:59 23:59 23:59 Weight (kg) 74.8 kg Intake & Output: Intake and Output Totals x24h 08/07/17 08/08/17 08/09/17 23:59 23:59 23:59 Intake Total 1690 2631.334 668.000 Output Total 200 700 400 Balance 1490 1931.334 268.000 - Lab Results Lab Results: 08/09/17 05:06 08/09/17 05:06 Other Lab Results: Lab Results x24hrs 08/09/17 08/09/17 Range/Units 05:06 05:06 WBC 4.0 L (4.8-10.8) x10^3/uL RBC 3.33 L (4.20-5.40) 10^6/uL Hgb 10.0 L (12.0-16.0) g/dL Hct 30.8 L (37.0-47.0) % MCV 92.5 (81.0-99.0) fL MCH 30.1 (27.0-31.0) pg MCHC 32.6 (32.0-36.0) g/dL RDW 13.3 (12.0-15.0) % Plt Count 274 (130-450) 10^3/uL MPV 6.8 L (7.9-10.8) fL Neut # 2.4 (1.5-6.6) 10^3/uL Lymph # 0.9 L (1.5-3.5) 10^3/uL [place] # 0.5 (0.0-1.0) 10^3/uL Eos # 0.2 (0.0-0.7) 10^3/uL Baso # 0.1 (0.0-0.1) 10^3/uL Absolute Nucleated RBC 0.00 x10^3/uL Nucleated RBC % 0.1 /100WBC Sodium 137 (135-145) mmol/L Potassium 3.4 L (3.5-5.0) mmol/L Chloride 99 L (101-111) mmol/L Carbon Dioxide 31 (21-32) mmol/L Anion Gap 7.0 (6-13) BUN 8 (6-20) mg/dL Creatinine 0.6 (0.4-1.0) mg/dL Estimated GFR (MDRD) 98 (>89) Glucose 104 H (70-100) mg/dL Calcium 8.2 L (8.5-10.3) mg/dL Total Bilirubin 0.5 (0.2-1.0) mg/dL AST 22 (10-42) IU/L ALT 12 (10-60) IU/L Alkaline Phosphatase 105 (42-121) IU/L Total Protein 6.3 L (6.7-8.2) g/dL Albumin 3.0 L (3.2-5.5) g/dL Globulin 3.3 (2.1-4.2) g/dL Albumin/Globulin Ratio 0.9 L (1.0-2.2) - Current Medications Current Medications: Current Medications Generic Name Dose Route Start Last Admin Trade Name Freq PRN Reason Stop Dose Admin Acetaminophen/Hydrocodone Bitart 1 tab 08/07/17 11:01 08/08/17 22:55 [place] 7.5/325 PO 1 tab Q4HR PRN Administration PAIN Digoxin 125 mcg 08/08/17 07:00 08/09/17 06:40 Lanoxin PO 125 mcg 0700 MC Administration Erythromycin 1 applic 08/07/17 21:00 08/08/17 22:49 Ilotycin Ophth Oint RIGHTEYE 1 applic QPM MC Administration Furosemide 20 mg 08/07/17 16:00 08/08/17 18:12 Lasix PO 20 mg 1600 MC Administration Furosemide 40 mg 08/08/17 08:00 08/08/17 08:24 Lasix PO 40 mg 0800 MC Administration Vancomycin HCl 1 gm/ Sodium 250 mls @ 167 mls/hr 08/08/17 13:00 08/09/17 02: 49 Chloride IV Infused Q12H MC Infusion Protocol Lactated Ringer's 1,000 mls @ 80 mls/hr 08/08/17 14:52 08/09/17 05:57 Lr IV 80 mls/hr .[id number] MC Administration Lisinopril 2.5 mg 08/08/17 16:00 08/08/17 18:12 Zestril PO 2.5 mg 1600 MC Administration Metoprolol Tartrate 12.5 mg 08/08/17 08:30 08/08/17 17:25 Lopressor PO Not Given 0800,1700 MC Pantoprazole Sodium 40 mg 08/08/17 07:00 08/09/17 06:40 Protonix PO 40 mg QDAC MC Administration Sodium Chloride 10 ml 08/07/17 17:00 08/09/17 00:46 Normal Saline Flush 0.9% IVP Not Given 0100,0900,1700 MC - Physical Exam Wound/Incisions: positive: Dressing dry and intact Skin: positive: Warm, Dry Neurologic/Psychiatric: positive: CN's nml (2-12), Motor nml, Sensation nml, Mood/affect nml Impression/Plan - Problem List Problem List: POD#1 Pt is doing well. No pain and less spasm Culture superficial 4+ staph. await sensitivity and final report continue with present care and iv abx.
[2017-08-09] MEDS: ceFAZolin 2 GM/50 ML 2 GM/50 ML BAG IV SCH ×2 (08:57→16:14)
[2017-08-09] MEDS: METOPROLOL TARTRATE 25 MG TABLET PO SCH ×2 (09:05→16:13)
[2017-08-09] MEDS: FUROSEMIDE 40 MG TABLET PO SCH (09:05)
[2017-08-09 13:07] LABS: VANCOMYCIN,TROUGH 23.4 ug/mL (5.0-15.0)
[2017-08-09] MEDS ORDERED: ceFAZolin 2 GM in SODIUM CHLORIDE 0.9% MINIBAG 100 ML IV SCH (14:00)
[2017-08-09] MEDS: SENNA 8.6 MG TABLET PO PRN (16:14)
[2017-08-09] MEDS: LISINOPRIL 5 MG TABLET PO SCH (16:14)
[2017-08-09] MEDS: FUROSEMIDE 20 MG TABLET PO SCH (16:14)
[2017-08-09] MEDS: HYDROcod/ACETAM 7.5 MG/325 MG TABLET PO PRN (19:41)
[2017-08-09] MEDS: ERYTHROMYCIN OPHTH OINT 1 GM TUBE RIGHTEYE SCH (19:41)
[2017-08-10] MEDS ORDERED: VANCOMYCIN INJ 1 GM, VANCOMYCIN INJ 250 MG in SODIUM CHLORIDE 0.9% 250 ML IV SCH ×3
[2017-08-10] MEDS: ceFAZolin 2 GM/50 ML 2 GM/50 ML BAG IV SCH ×4 (00:45→23:30)
[2017-08-10] MEDS: SODIUM CHLORIDE FLUSH 0.9% 10 ML SYRINGE IVP SCH ×4 (00:51→23:29)
[2017-08-10] MEDS: LACTATED RINGERS 1,000 ML IV SCH (06:02)
[2017-08-10] MEDS: DIGOXIN 125 MCG TABLET PO SCH (06:57)
[2017-08-10] MEDS: PANTOPRAZOLE 40 MG TABLET PO SCH (06:57)
[2017-08-10] MEDS: POLYETHYLENE GLYCOL 3350 17 GM PACKET PO SCH (08:36)
[2017-08-10] MEDS: DOCUSATE SODIUM 250 MG CAPSULE PO SCH (08:37)
[2017-08-10] MEDS: METOPROLOL TARTRATE 25 MG TABLET PO SCH ×2 (08:37→16:04)
[2017-08-10] MEDS: FUROSEMIDE 40 MG TABLET PO SCH (08:37)
--- NOTE | 2017-08-10 08:38 | PROVIDER PROGRESS NOTE ---
Subjective - General Admit Date: 08/07/17 Procedure Date: 08/08/17 Post Op Days: 2 Procedure Performed: Irrigation/debridement, closure - Review of Systems Wound/Incisions: positive: Dressing dry and intact HEENT: positive: No symptoms Pulmonary: positive: No symptoms Cardiovascular: positive: No symptoms Gastrointestinal: positive: No symptoms Genitourinary: positive: No symptoms Musculoskeletal: positive: Joint pain Objective - Patient Data Reviewed Vital Signs: Yes Vital Signs: Vital Signs x48h Temp Pulse Resp BP Pulse Ox 08/10/17 08:15 36.3 C L 66 18 93/65 98 08/10/17 04:55 36.6 C 62 18 123/59 L 94 Intake & Output: Intake and Output Totals x24h 08/08/17 08/09/17 08/10/17 23:59 23:59 23:59 Intake Total 2631.334 2268.000 268 Output Total 700 1075 Balance 4486.563 2847.000 268 - Lab Results Lab Results: 08/09/17 05:06 08/09/17 05:06 Other Lab Results: Lab Results x24hrs 08/09/17 08/09/17 Range/Units 23:34 12:35 Last Dose Date Not Reportable 08/09/17 Last Dose Time Not Reportable 0249 Vancomycin Trough 15.0 23.4 H (5.0-15.0) ug/mL - Current Medications Current Medications: Current Medications Generic Name Dose Route Start Last Admin Trade Name Freq PRN Reason Stop Dose Admin Acetaminophen/Hydrocodone Bitart 1 tab 08/07/17 11:01 08/09/17 19:41 [place] 7.5/325 PO 1 tab Q4HR PRN Administration PAIN Digoxin 125 mcg 08/08/17 07:00 08/10/17 06:57 Lanoxin PO 125 mcg 0700 MC Administration Erythromycin 1 applic 08/07/17 21:00 08/09/17 19:41 Ilotycin Ophth Oint RIGHTEYE 1 applic QPM MC Administration Furosemide 20 mg 08/07/17 16:00 08/09/17 16:14 Lasix PO 20 mg 1600 MC Administration Furosemide 40 mg 08/08/17 08:00 08/09/17 09:05 Lasix PO 40 mg 0800 MC Administration Lactated Ringer's 1,000 mls @ 80 mls/hr 08/08/17 14:52 08/10/17 06:02 Lr IV Not Given .[id number] MC Cefazolin Sodium/Dextrose 2 gm in 50 mls @ 100 mls/hr 08/09/17 08:30 01:33 Ancef 2 Gm/50 Ml IV Infused Q8H [facility] Infusion Lisinopril 2.5 mg 08/08/17 16:00 08/09/17 16:14 Zestril PO 2.5 mg 1600 [facility] Administration Metoprolol Tartrate 12.5 mg 08/08/17 08:30 08/09/17 16:13 Lopressor PO 12.5 mg 0800,1700 [facility] Administration Pantoprazole Sodium 40 mg 08/08/17 07:00 08/10/17 06:57 Protonix PO 40 mg QDAC MC Administration Senna 17.2 mg 08/07/17 09:46 08/09/17 16:14 Senokot PO 17.2 mg Q12H PRN Administration Constipation Sodium Chloride 10 ml 08/07/17 17:00 08/10/17 00:51 Normal Saline Flush 0.9% IVP Not Given 0100,0900,1700 [facility] - Physical Exam Wound/Incisions: positive: Dressing dry and intact General Appearance: positive: No acute distress Skin: positive: No rash Extremities: positive: Joint swelling Neurologic/Psychiatric: positive: Motor nml, Sensation nml, Mood/affect nml Impression/Plan - Problem List Problem List: POD #2 Pt is doing well. Dressing intact Plan to use IV Ancef. Will change dressing tomorrow and make decision on PICC line
[2017-08-10] MEDS: HYDROcod/ACETAM 7.5 MG/325 MG TABLET PO PRN ×3 (11:19→20:19)
[2017-08-10] MEDS: SACCHAROMYCES BOULARDII 250 MG CAPSULE PO SCH ×2 (11:20→16:04)
[2017-08-10] MEDS: LISINOPRIL 5 MG TABLET PO SCH (16:03)
[2017-08-10] MEDS: FUROSEMIDE 20 MG TABLET PO SCH (16:03)
[2017-08-10] MEDS: SENNA 8.6 MG TABLET PO PRN (16:04)
[2017-08-10] MEDS: ERYTHROMYCIN OPHTH OINT 1 GM TUBE RIGHTEYE SCH (20:20)
[2017-08-11 05:35] LABS: BASOPHILS % (AUTO) 1.2 %; EOSINOPHILS # (AUTO) 0.2 10^3/uL (0.0-0.7); EOSINOPHILS % (AUTO) 5.4 %; HGB - HEMOGLOBIN 10.7 g/dL (12.0-16.0); LYMPHOCYTES # (AUTO) 1.2 10^3/uL (1.5-3.5); LYMPHOCYTES % (AUTO) 29.7 %; MEAN CORPUSCULAR HEMOGLOBIN 30.1 pg (27.0-31.0); MEAN CORPUSCULAR HGB CONC 32.4 g/dL (32.0-36.0); MEAN CORPUSCULAR VOLUME 92.9 fL (81.0-99.0); MONOCYTES # (AUTO) 0.5 10^3/uL (0.0-1.0); MONOCYTES % (AUTO) 12.4 %; NEUTROPHILS % (AUTO) 51.3 %; PLT - PLATELET COUNT 267 10^3/uL (130-450); RED BLOOD COUNT 3.55 10^6/uL (4.20-5.40); RED CELL DISTRIBUTION WIDTH 13.3 % (12.0-15.0)
[2017-08-11] MEDS: DIGOXIN 125 MCG TABLET PO SCH (06:47)
[2017-08-11] MEDS: PANTOPRAZOLE 40 MG TABLET PO SCH (06:47)
--- NOTE | 2017-08-11 08:54 | PROVIDER PROGRESS NOTE ---
Subjective - General Admit Date: 08/07/17 Procedure Date: 08/08/17 Post Op Days: 3 Procedure Performed: Irrigation/debridement, closure - Review of Systems Wound/Incisions: positive: Dressing dry and intact HEENT: positive: No symptoms Pulmonary: positive: No symptoms Cardiovascular: positive: No symptoms Gastrointestinal: positive: No symptoms Genitourinary: positive: No symptoms Musculoskeletal: positive: Joint pain Objective - Patient Data Reviewed Vital Signs: Yes Vital Signs: Vital Signs x48h Temp Pulse Resp BP Pulse Ox 08/11/17 05:00 36.6 C 96 16 122/73 93 Intake & Output: Intake and Output Totals x24h 08/09/17 08/10/17 08/11/17 23:59 23:59 23:59 Intake Total 2268.000 2158 50 Output Total 1075 450 900 Balance 0152.218 1951 -850 - Lab Results Lab Results: 08/11/17 05:20 08/09/17 05:06 Other Lab Results: Lab Results x24hrs 08/11/17 08/11/17 08/11/17 Range/Units 05:20 05:20 05:20 WBC 4.0 L (4.8-10.8) x10^3/uL RBC 3.55 L (4.20-5.40) 10^6/uL Hgb 10.7 L (12.0-16.0) g/dL Hct 32.9 L (37.0-47.0) % MCV 92.9 (81.0-99.0) fL MCH 30.1 (27.0-31.0) pg MCHC 32.4 (32.0-36.0) g/dL RDW 13.3 (12.0-15.0) % Plt Count 267 (130-450) 10^3/uL MPV 7.0 L (7.9-10.8) fL Neut # 2.0 (1.5-6.6) 10^3/uL Lymph # 1.2 L (1.5-3.5) 10^3/uL [place] # 0.5 (0.0-1.0) 10^3/uL Eos # 0.2 (0.0-0.7) 10^3/uL Baso # 0.0 (0.0-0.1) 10^3/uL Absolute Nucleated RBC 0.00 x10^3/uL Nucleated RBC % 0.0 /100WBC ESR 30 (0-30) mm/Hr C-Reactive Protein < 1.0 (0-1.0) mg/dL - Current Medications Current Medications: Current Medications Generic Name Dose Route Start Last Admin Trade Name Freq PRN Reason Stop Dose Admin Acetaminophen/Hydrocodone Bitart 1 tab 08/07/17 11:01 08/10/17 20:19 [place] 7.5/325 PO 1 tab Q4HR PRN Administration PAIN Digoxin 125 mcg 08/08/17 07:00 08/11/17 06:47 Lanoxin PO 125 mcg 0700 [facility] Administration Docusate Sodium 250 - 500 mg 08/10/17 09:00 08/10/17 08:37 Colace 250mg Capsule PO 250 mg DAILY MC Administration Erythromycin 1 applic 08/07/17 21:00 08/10/17 20:20 Ilotycin Ophth Oint RIGHTEYE 1 applic QPM MC Administration Furosemide 20 mg 08/07/17 16:00 08/10/17 16:03 Lasix PO 20 mg 1600 [facility] Administration Furosemide 40 mg 08/08/17 08:00 08/10/17 08:37 Lasix PO 40 mg 0800 [facility] Administration Cefazolin Sodium/Dextrose 2 gm in 50 mls @ 100 mls/hr 08/09/17 08:30 00:10 Ancef 2 Gm/50 Ml IV Infused Q8H [facility] Infusion Lisinopril 2.5 mg 08/08/17 16:00 08/10/17 16:03 Zestril PO 2.5 mg 1600 [facility] Administration Metoprolol Tartrate 12.5 mg 08/08/17 08:30 08/10/17 16:04 Lopressor PO 12.5 mg 0800,1700 MC Administration Pantoprazole Sodium 40 mg 08/08/17 07:00 08/11/17 06:47 Protonix PO 40 mg QDAC MC Administration Polyethylene Glycol 17 gm 08/10/17 09:00 08/10/17 08:36 Miralax PO 17 gm DAILY MC Administration Saccharomyces Boulardii 250 mg 08/10/17 09:00 08/10/17 16:04 Florastor PO 250 mg BIDWM MC Administration Senna 17.2 mg 08/07/17 09:46 08/10/17 16:04 Senokot PO 17.2 mg Q12H PRN Administration Constipation Sodium Chloride 10 ml 08/07/17 17:00 08/10/17 23:29 Normal Saline Flush 0.9% IVP 10 ml 0100,0900,1700 MC Administration - Physical Exam Wound/Incisions: positive: Drainage General Appearance: positive: No acute distress Cardiovascular: positive: Regular rate & rhythm Abdomen: positive: Non-tender Skin: positive: No rash, Warm, Dry Extremities: positive: Joint swelling Neurologic/Psychiatric: positive: Sensation nml, Mood/affect nml, Disoriented to person Impression/Plan - Problem List Problem List: POD #3 dressing changed: wound has very minor bloody margins without generalized swelling. Pt's knee is comfortable in 30 degrees of flexion-- a hinged knee brace has been applied. Plan for discharge tomorrow. Will consult with [facility] regarding proper antibiotic.
[2017-08-11] MEDS: ceFAZolin 2 GM/50 ML 2 GM/50 ML BAG IV SCH ×2 (09:25→17:00)
[2017-08-11] MEDS: SACCHAROMYCES BOULARDII 250 MG CAPSULE PO SCH ×2 (09:26→17:00)
[2017-08-11] MEDS: FUROSEMIDE 40 MG TABLET PO SCH (09:26)
[2017-08-11] MEDS: METOPROLOL TARTRATE 25 MG TABLET PO SCH ×2 (09:26→17:34)
[2017-08-11] MEDS: POLYETHYLENE GLYCOL 3350 17 GM PACKET PO SCH (09:26)
[2017-08-11] MEDS: SODIUM CHLORIDE FLUSH 0.9% 10 ML SYRINGE IVP SCH ×2 (09:31→17:00)
[2017-08-11] MEDS: DOCUSATE SODIUM 250 MG CAPSULE PO SCH (10:22)
[2017-08-11] MEDS: FUROSEMIDE 20 MG TABLET PO SCH (17:00)
[2017-08-11] MEDS: LISINOPRIL 5 MG TABLET PO SCH (17:44)
[2017-08-11] MEDS: HYDROcod/ACETAM 7.5 MG/325 MG TABLET PO PRN (19:36)
[2017-08-11] MEDS: ERYTHROMYCIN OPHTH OINT 1 GM TUBE RIGHTEYE SCH (21:32)
[2017-08-12] MEDS: ceFAZolin 2 GM/50 ML 2 GM/50 ML BAG IV SCH ×2 (00:12→08:37)
[2017-08-12] MEDS: SODIUM CHLORIDE FLUSH 0.9% 10 ML SYRINGE IVP SCH ×2 (00:13→08:37)
[2017-08-12] MEDS: PANTOPRAZOLE 40 MG TABLET PO SCH (06:21)
[2017-08-12] MEDS: DIGOXIN 125 MCG TABLET PO SCH (06:21)
[2017-08-12] MEDS: DOCUSATE SODIUM 250 MG CAPSULE PO SCH (08:36)
[2017-08-12] MEDS: METOPROLOL TARTRATE 25 MG TABLET PO SCH (08:36)
[2017-08-12] MEDS: SACCHAROMYCES BOULARDII 250 MG CAPSULE PO SCH (08:36)
[2017-08-12] MEDS: FUROSEMIDE 40 MG TABLET PO SCH (08:36)
[2017-08-12] MEDS: POLYETHYLENE GLYCOL 3350 17 GM PACKET PO SCH (08:37)
--- NOTE | 2017-08-12 09:21 | Discharge Plan ---
Discharge Plan Disposition: Home, Self Care Condition: Fair Prescriptions: HYDROcodone/ACET 7.5/325 [[place] 7.5/325] 1 tab PO Q4HR PRN #30 tablet PRN Reason: Pain cefaDROXil [Cefadroxil] 1 gm PO BID #20 tablet Saccharomyces Boulardii [Florastor] 250 mg PO DAILY #30 capsule Diet: Regular Activity Restrictions: transfers with weight bear as oliver. Brace at all times except shower. Shower Restrictions: Yes (cover dressing left knee, and keep knee extended) Driving Restrictions: Yes (no drive) Assistance Devices: Wheelchair, Walker Weight Bearing: Full Weight No Smoking: If you smoke, Please STOP! Call for help. Follow-up with: Gabriela Flores MD [Provider Admit Priv/Credential] -
[2017-08-12] MEDS: HYDROcod/ACETAM 7.5 MG/325 MG TABLET PO PRN (10:00)
[2017-08-12 10:11] VITALS: BP 116/66
--- NOTE | 2017-08-18 10:29 | DISCHARGE SUMMARY ---
Physician: Gabriela Flores MD DATE OF ADMISSION: 08/07/2017 DATE OF DISCHARGE: 08/12/2017 ADMISSION DIAGNOSIS: Left knee open patellar fracture with soft tissue infection post total knee arthroplasty. OPERATIVE PROCEDURE: 08/07/2017, an incision and drainage of anterior knee dehiscence, washout, and primary closure. OPERATING SURGEON: Gabriela Flores MD INDICATIONS FOR SURGERY: Patient is a 72-year-old female who, at 3 weeks post total knee arthroplasty, suffered a flexion-type injury to her knee that caused mild dehiscence of her incision and initially an unrecognized lower pole patella fracture. Patient had presented back to clinic with drainage from a small wound in her knee, and at followup x-rays patient was found to have an inferior pole patella fracture. The recommendation was that she be admitted to the hospital, and undergo debridement and IV antibiotic treatment with cultures having been taken from intra-articular knee and from anterior knee incision. HOSPITAL COURSE: Patient was admitted on 08/07/2017 and on 08/08/2017 patient underwent surgical treatment, the surgery being debridement of her anterior knee wound with closure. In the postoperative period, patient was returned to the floor in a hinged knee brace in as much extension as could be tolerated with soft tissue dressings on her knee. She was receiving IV antibiotics, as well as pain medication as needed and supportive care with stool softeners and early physical therapy, trying to mobilize patient in transfers to bedside commode. Over the course of the following days, patient did very well. She had diminished knee pain and diminished drainage from her knee. She remained afebrile and comfortable. Patient's laboratory values were assessed and her antibiotics appropriately changed to Ancef, and phone consultation was held [facility] regarding antibiotic coverage. At the time of discharge, patient was discharged with p.o. pain medication and p.o. antibiotics, with a dressing in place on her knee, which was to be changed in clinic at 48 hours. Her ambulation was to be very limited for bathroom and simple mobilization with the brace locked at 20 degrees to 30 degrees. TD: 08/18/2017 10:28
--- NOTE | 2017-08-24 17:15 | HISTORY & PHYSICAL EXAMINATION ---
DATE OF SERVICE: Physician: Gabriela Flores MD ADMISSION HISTORY AND PHYSICAL DATE OF ADMISSION: 08/07/2017 CHIEF COMPLAINT: Left knee anterior wound and patellar fracture. HISTORY OF PRESENT ILLNESS: Patient is a 72-year-old female who had undergone a left total knee arthroplasty at [facility] on 07/11/2017. The patient had a normal and uneventful 3 weeks of postoperative recovery until on the day of an office visit on 07/31/2017 as preparing to come to the hospital and getting into a car she developed a dehiscence of her lower incision with bleeding and was found in clinic to have a very minor area, less than 1 cm, of dehiscence in her lower incision with minimal bleeding, managed by dressing changes. However, over the course of 3 visits in the following 6 days the patient's anterior wound actually extended somewhat and the bleeding did not cease, at which point, aspiration and cultures were obtained and x-rays which revealed an inferior pole patella fracture. The patient is admitted on 08/07/2014 for purposes of further workup with IV antibiotics and possible surgical exploration. PAST MEDICAL HISTORY: Positive for atrial fibrillation, osteoarthritis, history of congestive heart failure, paraesophageal hiatal hernia, Hein's cyst of left knee, chronic venous insufficiency, cataracts. ALLERGIES: QUESTIONABLE TO TYLENOL. PAST SURGICAL HISTORY: Right leg surgery in 1986 for a broken ankle. Left total knee arthroplasty 07/11/2016. SOCIAL HISTORY: The patient is single and accompanied by family. She does not smoke, does not drink or use drugs. She lives with her daughter and son-in-law. REVIEW OF SYSTEMS: Negative for fevers, chills or sweats. She has been comfortable. She is, however, acutely nervous and anxious about the bleeding from her knee and the wound that has developed. She denies blood problems, psychiatric problems, skin disorders, joint swelling or numbness or gout. PHYSICAL EXAMINATION GENERAL: Shows her to be seated in a wheelchair with dressings on her knee. She is not in distress. She has irregular heart rate, but stable. CHEST: Lungs are clear. HEART: Rate is within normal limits. ABDOMEN: Soft and nontender. EXTREMITIES: Upper extremities normal. Her left knee reveals that it is held in about 90 degrees of flexion with 2 areas of inferior incisional dehiscence each measuring about 2 cm. There is not gross drainage, but rather serosanguineous mild oozing. The patient cannot extend her knee and has pain when attempts were made to do that. Her leg does not have cellulitis nor adenopathy and her neurovascular exam is normal. X-RAY EVALUATION shows a displaced inferior pole patella fracture. ADDENDUM: The patient has a medication list that shows: 1. Daily multivitamin. 2. Calcium. 3. Oral probiotic. 4. Pantoprazole daily. 5. Potassium chloride. 6. Metoprolol 7. Lasix. 8. Eliquis. 9. Lisinopril. 10. Tylenol. 11. Tramadol. 12. [place]. 13. Cefadroxil. IMPRESSION: Patient has a postoperative complication of an inferior pole patella fracture occurring with a flexion of the knee at 3 weeks postop causing bleeding and mild wound dehiscence and now at 4 weeks postop requiring surgical intervention for the anterior wound and potential salvage of the knee. RECOMMENDATIONS: The patient be admitted, await cultures of fluid sampled, and plan for surgical intervention for 08/08/2017. TD: 08/24/2017 17:15
== END 2017-08-12 11:03 | disposition home or self-care (01) | DRG 560 ==
LOC: MS2 09:01
PROVIDERS: ADMIT Orthopaedic Surgery; ATTEND Orthopaedic Surgery
PROC: 0Y9G0ZZ Drainage of Left Knee Region, Open Approach (ICD-10-PCS; principal; 2017-08-08 12:45)
DX: T84.54XA Infection and inflammatory reaction due to internal left knee prosthesis, initial encounter (principal); T81.31XA Disruption of external operation (surgical) wound, not elsewhere classified, initial encounter; S82.002A Unspecified fracture of left patella, initial encounter for closed fracture; M97.12XA Periprosthetic fracture around internal prosthetic left knee joint, initial encounter; A48.8 Other specified bacterial diseases; Y79.3 Surgical instruments, materials and orthopedic devices (including sutures) associated with adverse incidents; I48.91 Unspecified atrial fibrillation; I50.9 Heart failure, unspecified; M19.90 Unspecified osteoarthritis, unspecified site; I87.2 Venous insufficiency (chronic) (peripheral); K21.9 Gastro-esophageal reflux disease without esophagitis; K44.9 Diaphragmatic hernia without obstruction or gangrene; Z79.899 Other long term (current) drug therapy
CPT/HCPCS: 36415; 80053; 85025; 85651; 86140; 87070; 87205

== ENCOUNTER 2017-09-28 08:00 | Outpatient (CLI) | payer MEDICARE, MEDICAID ==
[2017-09-28 19:45] LABS: BUN - BLOOD UREA NITROGEN 19 mg/dL (6-20); CALCIUM 9.2 mg/dL (8.5-10.3); CARBON DIOXIDE - CO2 33 mmol/L (21-32); CHLORIDE 96 mmol/L (101-111); CREATININE 0.9 mg/dL (0.4-1.0); DIGOXIN 0.7 ng/mL; GFR - MDRD 61 (>89); GLUCOSE 101 mg/dL (70-100); SODIUM 137 mmol/L (135-145)
== END 2017-09-28 08:01 ==
LOC: LAB.WCP 08:00
PROVIDERS: ATTEND Internal Medicine Cardiovascular Disease
DX: I48.2 Chronic atrial fibrillation (principal)
CPT/HCPCS: 36415; 80048; 80162

== ENCOUNTER 2018-02-13 10:26 | Outpatient (CLI) | payer MEDICARE, MEDICAID ==
[2018-02-13 12:57] LABS: ALBUMIN 3.3 g/dL (3.2-5.5); ALBUMIN/GLOBULIN RATIO 0.9 (1.0-2.2); BILIRUBIN,TOTAL 0.7 mg/dL (0.2-1.0); CALCIUM 8.9 mg/dL (8.5-10.3); CREATININE 0.8 mg/dL (0.4-1.0); TOTAL PROTEIN 7.1 g/dL (6.7-8.2)
[2018-02-13 13:01] LABS: BASOPHILS # (AUTO) 0.1 10^3/uL (0.0-0.1); EOSINOPHILS # (AUTO) 0.1 10^3/uL (0.0-0.7); HGB - HEMOGLOBIN 10.2 g/dL (12.0-16.0); LYMPHOCYTES # (AUTO) 1.1 10^3/uL (1.5-3.5); LYMPHOCYTES % (AUTO) 18.4 %; MEAN CORPUSCULAR HEMOGLOBIN 31.6 pg (27.0-31.0); MEAN CORPUSCULAR HGB CONC 33.9 g/dL (32.0-36.0); MEAN CORPUSCULAR VOLUME 93.1 fL (81.0-99.0); MEAN PLATELET VOLUME 7.6 fL (7.9-10.8); MONOCYTES # (AUTO) 0.5 10^3/uL (0.0-1.0); MONOCYTES % (AUTO) 9.2 %; NEUTROPHILS % (AUTO) 69.4 %; PLT - PLATELET COUNT 284 10^3/uL (130-450); RED BLOOD COUNT 3.24 10^6/uL (4.20-5.40); RED CELL DISTRIBUTION WIDTH 14.2 % (12.0-15.0); WHITE BLOOD COUNT 5.7 x10^3/uL (4.8-10.8)
== END 2018-02-13 10:27 | disposition home or self-care (01) ==
LOC: LAB.WCP 10:26
PROVIDERS: ATTEND Nurse Practitioner
DX: J18.9 Pneumonia, unspecified organism (principal); K62.5 Hemorrhage of anus and rectum
CPT/HCPCS: 36415; 80053; 85025

== ENCOUNTER 2018-02-19 14:20 | Outpatient (CLI) | payer MEDICARE, MEDICAID ==
[2018-02-19 18:54] LABS: BASOPHILS # (AUTO) 0.1 10^3/uL (0.0-0.1); BASOPHILS % (AUTO) 1.8 %; EOSINOPHILS # (AUTO) 0.1 10^3/uL (0.0-0.7); EOSINOPHILS % (AUTO) 3.4 %; HGB - HEMOGLOBIN 10.5 g/dL (12.0-16.0); LYMPHOCYTES # (AUTO) 1.1 10^3/uL (1.5-3.5); LYMPHOCYTES % (AUTO) 29.1 %; MEAN CORPUSCULAR HEMOGLOBIN 30.6 pg (27.0-31.0); MEAN CORPUSCULAR HGB CONC 32.8 g/dL (32.0-36.0); MEAN CORPUSCULAR VOLUME 93.4 fL (81.0-99.0); MEAN PLATELET VOLUME 7.6 fL (7.9-10.8); MONOCYTES # (AUTO) 0.4 10^3/uL (0.0-1.0); MONOCYTES % (AUTO) 11.5 %; NEUTROPHILS # (AUTO) 2.1 10^3/uL (1.5-6.6); NEUTROPHILS % (AUTO) 54.2 %; PLT - PLATELET COUNT 307 10^3/uL (130-450); RED BLOOD COUNT 3.43 10^6/uL (4.20-5.40); RED CELL DISTRIBUTION WIDTH 14.2 % (12.0-15.0); WHITE BLOOD COUNT 3.9 x10^3/uL (4.8-10.8)
[2018-02-19 19:28] LABS: % IRON SATURATION 10 % (20-50); IRON 32 ug/dL (28-170); TOTAL IRON BINDING CAPACITY 318 ug/dL (250-450); TRANSFERRIN 227 mg/dL (192-382)
== END 2018-02-19 14:21 | disposition home or self-care (01) ==
LOC: LAB.WCP 14:20
PROVIDERS: ATTEND Physician Assistant Medical
DX: K62.5 Hemorrhage of anus and rectum (principal)
CPT/HCPCS: 36415; 82728; 83540; 84466; 85025

== ENCOUNTER 2018-03-24 23:06 | Inpatient (IN) | payer MEDICARE, MEDICAID ==
[2018-03-24 23:45] LABS: BASOPHILS % (AUTO) 0.5 %; EOSINOPHILS # (AUTO) 0.1 10^3/uL (0.0-0.7); EOSINOPHILS % (AUTO) 1.2 %; HGB - HEMOGLOBIN 11.7 g/dL (12.0-16.0); LYMPHOCYTES # (AUTO) 0.9 10^3/uL (1.5-3.5); LYMPHOCYTES % (AUTO) 11.8 %; MEAN CORPUSCULAR HEMOGLOBIN 30.2 pg (27.0-31.0); MEAN CORPUSCULAR HGB CONC 33.1 g/dL (32.0-36.0); MEAN CORPUSCULAR VOLUME 91.2 fL (81.0-99.0); MEAN PLATELET VOLUME 7.4 fL (7.9-10.8); MONOCYTES # (AUTO) 0.6 10^3/uL (0.0-1.0); MONOCYTES % (AUTO) 7.8 %; NEUTROPHILS # (AUTO) 5.9 10^3/uL (1.5-6.6); NEUTROPHILS % (AUTO) 78.7 %; PLT - PLATELET COUNT 241 10^3/uL (130-450); RED BLOOD COUNT 3.86 10^6/uL (4.20-5.40); WHITE BLOOD COUNT 7.5 x10^3/uL (4.8-10.8)
[2018-03-25] LABS: ALBUMIN/GLOBULIN RATIO 0.9 (1.0-2.2); BILIRUBIN,TOTAL 0.6 mg/dL (0.2-1.0); CALCIUM 9.2 mg/dL (8.5-10.3); TOTAL PROTEIN 8.3 g/dL (6.7-8.2)
[2018-03-25 00:06] LABS: INR 1.2 (0.8-1.2)
--- NOTE | 2018-03-25 00:22 | ED Physician Documentation ---
PD HPI GI BLEED - Stated complaint Stated Complaint: RECTAL BLEEDING - Chief complaint Chief Complaint: General - History obtained from History obtained from: Patient - History of Present Illness Timing - onset: Enter time (18:30) Timing - details: Abrupt onset, Intermittant Pain level max: 0 Pain level now: 0 Associated symptoms: BRBPR Contributing factors: Anticoagulated Improved by: Other (nothing) Worsened by: Other (no apparent inciting or exacerbating factors) Similar symptoms before: Other (similar episode January) for which she was admitted to [facility]; patient says she had upper and lower endoscopy but no source was found) - Additional information Additional information: had episode of BRBPR 6:30 PM tonight and again at 10 PM (second episode was darker red). Patient is on Eliquis for atrial fibrillation Review of Systems Constitutional: reports: Reviewed and negative Eyes: reports: Reviewed and negative Ears: reports: Reviewed and negative Nose: reports: Reviewed and negative Cardiac: reports: Reviewed and negative Respiratory: reports: Reviewed and negative GI: reports: Bloody / black stool. denies: Abdominal Pain, Nausea, Vomiting, Constipation, Diarrhea : denies: Dysuria, Frequency, Hematuria Skin: reports: Reviewed and negative Musculoskeletal: reports: Reviewed and negative Neurologic: reports: Reviewed and negative PD PAST MEDICAL HISTORY - Past Medical History Past Medical History: Yes Cardiovascular: Congestive heart failure, Atrial fibrillation Respiratory: None, Pneumonia Endocrine/Autoimmune: None GI: Hiatal hernia, Chronic constipation, Other : Incontinence HEENT: Chronic vision loss, Other Psych: None Musculoskeletal: Osteoarthritis, Osteoporosis Other Past Medical History: Blood transfusion 2017. - Past Surgical History Past Surgical History: Yes General: Hiatal hernia repair Ortho: Other - Present Medications Home Medications: Ambulatory Orders Medication Instructions Recorded Confirmed Calcium Carbonate/Vitamin D3 600 mg PO QDDINNER 07/24/15 03/24/18 [Calcium 600-Vit D3 800 Tablet] Furosemide 40 mg PO 0800 07/24/15 03/24/18 Metoprolol Tartrate [Lopressor] 12.5 mg PO 0800,1700 07/24/15 03/24/18 Pantoprazole Sodium 40 mg PO QDAC 07/24/15 03/24/18 Apixaban [Eliquis] 2.5 mg PO BID 05/03/16 03/24/18 Lisinopril 2.5 mg PO 1600 05/03/16 03/24/18 Multivitamin [Multivitamins] 1 cap PO DAILY 05/03/16 03/24/18 Potassium Chloride 40 mg PO 1700 05/03/16 03/24/18 Furosemide 20 mg PO 1600 07/10/17 03/24/18 L.acid/L.casei/B.bif/B.rony/Fos 1 cap PO DAILY 03/24/18 03/24/18 [Probiotic Blend Capsule] - Allergies Allergies/Adverse Reactions: Allergies Allergy/AdvReac Type Severity Reaction Status Date / Time No Known Drug Allergies Allergy Verified 03/24/18 23:22 - Social History Does the pt smoke?: No Smoking Status: Never smoker Does the pt drink ETOH?: No Does the pt have substance abuse?: No - Immunizations Immunizations are current?: No - POLST Patient has POLST: No PD ED PE NORMAL - Vitals Vital signs reviewed: Yes - General General: Alert and oriented X 3, No acute distress, Well developed/nourished - HEENT HEENT: Moist mucous membranes - Neck Neck: Supple, no meningeal sign - Cardiac Cardiac: No murmur - Respiratory Respiratory: No respiratory distress, Clear bilaterally - Abdomen Abdomen: Soft, Non tender, Non distended - Derm Derm: Normal color, Warm and dry - Extremities Extremities: No edema - Neuro Neuro: Alert and oriented X 3 PD ED PE EXPANDED - Cardiac Cardiac: Irregularly irregular Results - Vitals Vitals: Vital Signs - 24 hr 03/24/18 03/24/18 03/25/18 23:18 23:41 00:41 Temperature 37.8 C H Heart Rate 101 H 77 78 Respiratory 18 17 15 Rate Blood Pressure 127/80 127/80 107/66 O2 Saturation 97 100 100 03/25/18 03/25/18 03/25/18 01:00 02:10 02:40 Temperature 36.8 C Heart Rate 81 82 86 Respiratory 18 16 18 Rate Blood Pressure 106/60 106/75 85/44 L O2 Saturation 94 95 95 03/25/18 03/25/18 03/25/18 02:43 03:12 03:59 Temperature Heart Rate 85 81 Respiratory 16 16 Rate Blood Pressure 92/61 91/63 79/60 L O2 Saturation 95 96 Oxygen O2 Source Room air - Labs Labs: Laboratory Tests 03/24/18 03/24/18 03/24/18 23:19 23:19 23:19 WBC 7.5 RBC 3.86 L Hgb 11.7 L Hct 35.2 L MCV 91.2 MCH 30.2 MCHC 33.1 RDW 14.0 Plt Count 241 MPV 7.4 L Neut # (Auto) 5.9 Lymph # (Auto) 0.9 L [place] # (Auto) 0.6 Eos # (Auto) 0.1 Baso # (Auto) 0.0 Absolute Nucleated RBC 0.00 Nucleated RBC % 0.0 PT 14.0 H INR 1.2 Sodium 136 Potassium 3.8 Chloride 99 L Carbon Dioxide 31 Anion Gap 6.0 BUN 24 H Creatinine 1.0 Estimated GFR (MDRD) 54 L Glucose 107 H Calcium 9.2 Total Bilirubin 0.6 AST 28 ALT 13 Alkaline Phosphatase 108 Total Protein 8.3 H Albumin 4.0 Globulin 4.3 H Albumin/Globulin Ratio 0.9 L Lipase 23 Blood Type Antibody Screen 03/24/18 03/25/18 23:19 02:52 WBC RBC Hgb 10.0 L Hct 29.6 L MCV MCH MCHC RDW Plt Count MPV Neut # (Auto) Lymph # (Auto) [place] # (Auto) Eos # (Auto) Baso # (Auto) Absolute Nucleated RBC Nucleated RBC % PT INR Sodium Potassium Chloride Carbon Dioxide Anion Gap BUN Creatinine Estimated GFR (MDRD) Glucose Calcium Total Bilirubin AST ALT Alkaline Phosphatase Total Protein Albumin Globulin Albumin/Globulin Ratio Lipase Blood Type A POSITIVE Antibody Screen NEGATIVE PD MEDICAL DECISION MAKING - ED course Complexity details: reviewed old records, reviewed results, re-evaluated patient, considered differential, d/w patient, d/w family ED course: Held in ED for a few hours for both observation as well as repeat h/h. She did not have more BRBPR during this period, but her hgb dropped from 11.7 to 10.0. Additionally, her SBP, which had been in the 100s-110 range, dropped to 90s and then 80s SBP and remained in the 80s (SBP) for several successive readings. Given 500cc IV NS bolus with improvement to 90s. Given her drop in Hgb and the fact that she is anticoagulated, and that IV fluids will help BP but further dilute the H/H, it would be prudent to keep her in the hospital for further observation and repeat h/h until stabilized. Departure - Departure Disposition: ED Place in Observation Clinical Impression: Anticoagulant long-term use, Gastrointestinal bleeding, lower Condition: Stable Discharge Date/Time: 03/25/18 04:49
[2018-03-25] MEDS ORDERED: SODIUM CHLORIDE 0.9% 500 ML IV STA ×2 (02:49→04:07)
[2018-03-25] MEDS ORDERED: MORPHINE 2 MG/ML CARPUJECT IVP PRN (04:00)
[2018-03-25] MEDS ORDERED: ONDANSETRON 4 MG/2 ML VIAL IVP PRN (04:00)
[2018-03-25] MEDS ORDERED: TEMAZEPAM 15 MG CAPSULE PO PRN (04:00)
[2018-03-25] MEDS ORDERED: ACETAMINOPHEN 325 MG TABLET PO PRN (04:00)
[2018-03-25] MEDS ORDERED: PROCHLORPERAZINE 10 MG/2 ML VIAL IVP PRN (04:00)
[2018-03-25] MEDS ORDERED: oxyCODONE 5 MG TABLET PO PRN (04:00)
--- NOTE | 2018-03-25 05:21 | HISTORY & PHYSICAL EXAMINATION ---
Chief Complaint - Chief Complaint Chief Complaint: Rectal bleeding History of Present Illness - Admitted From Admitted From:: Emergency department - History Obtained From Records Reviewed: Emergency department and prior EMR records History obtained from: Patient, daughter, son-in-law, and Dr. Robert, ED physician Exam Limitations: None - History of Present Illness HPI Comment/Other: Patient is a 73-year-old female with a past medical history inclusive of atrial fibrillation, previous history of GI bleed in January 2018, CHF who presents to the emergency room room having had 2 episodes of rectal bleeding on the evening prior to admission. Patient states that approximately 6 PM she had a bowel movement with bright red blood per rectum followed by a second bowel movement at approximately 10 PM described as darker blood in the stool. She also has a history of atrial fibrillation on Eliquis and had a previous low er GI bleed in January 2018 where she was evaluated and [facility] with the workup including a colonoscopy and endoscopy, and although blood loss was significant requiring a blood transfusion, apparently according to the family there were no significant abnormalities on the scopes and the only change made was the decrease in dose of the Eliquis.She has a follow-up with her outpatient GI specialist next week. She went to the emergency room where a full evaluation was formed including labs and the patient had mild anemia initially, followed by a single point drop in hemoglobin and hematocrit a few hours later. She started off with normal blood pressures in the 120s over 80s, however this began to drop with blood pressures in the 80s over 60s at which point Dr. Robert became concerned with the GI bleed and drop in blood pressure and ensuing tachycardia and asked us to admit the patient for observation and further workup. History - Past Medical History Cardiovascular: reports: Congestive heart failure, Atrial fibrillation Respiratory: reports: None, Pneumonia Endocrine/Autoimmune: reports: None GI: reports: GI bleed, Hiatal hernia, Chronic constipation, Other (Diverticulosis) : reports: Incontinence HEENT: reports: Chronic vision loss, Other Psych: reports: None Musculoskeletal: reports: Osteoarthritis, Osteoporosis MRSA Hx?: No Other Past Medical History: Blood transfusion 2017. - Past Surgical History General: reports: Hiatal hernia repair Ortho: reports: Other - Family & Social History Family History: Mother: CAD, Diabetes, Type 2, Father: CAD Living arrangement: At home Living Situation: With family - Substance History Use: Uses substance without health or social issues: NONE - POLST Patient has POLST: No POLST Status: Full Code Meds/Allgy - Home Medications Home Medications: Ambulatory Orders Medication Instructions Recorded Confirmed Calcium Carbonate/Vitamin D3 600 mg PO QDDINNER 07/24/15 03/24/18 [Calcium 600-Vit D3 800 Tablet] Furosemide 40 mg PO 0800 07/24/15 03/24/18 Metoprolol Tartrate [Lopressor] 12.5 mg PO 0800,1700 07/24/15 03/24/18 Pantoprazole Sodium 40 mg PO QDAC 07/24/15 03/24/18 Apixaban [Eliquis] 2.5 mg PO BID 05/03/16 03/24/18 Lisinopril 2.5 mg PO 1600 05/03/16 03/24/18 Multivitamin [Multivitamins] 1 cap PO DAILY 05/03/16 03/24/18 Potassium Chloride 40 mg PO 1700 05/03/16 03/24/18 Furosemide 20 mg PO 1600 07/10/17 03/24/18 L.acid/L.casei/B.bif/B.rony/Fos 1 cap PO DAILY 03/24/18 03/24/18 [Probiotic Blend Capsule] - Allergies Allergies/Adverse Reactions: Allergies Allergy/AdvReac Type Severity Reaction Status Date / Time No Known Drug Allergies Allergy Verified 03/24/18 23:22 Review of Systems - Constitutional Constitutional: reports: Fatigue. denies: Fever, Chills - Cardiovascular Cariovascular: reports: Irregular heart rate. denies: Palpitations, Chest pain, Lightheadedness, Syncope - Respiratory Respiratory: denies: Cough, Wheezing, SOB at rest, SOB with exertion - Gastrointestinal Gastrointestinal: reports: Abdominal pain, Rectal bleeding, Black stools, Bloody stools. denies: Constipation, Diarrhea, Change in bowel habits, Nausea, Vomiting - Genitourinary Genitourinary: denies: Dysuria, Hematuria - Musculoskeletal Musculoskeletal: reports: Joint pain - Hematologic/Lymphatic Hematologic/Lymphatic: reports: Bruising, Petechiae, Blood clots Prior Level of Functionality: Ambulatory without assistance Exam - Vital Signs Reviewed Vital Signs: Yes Vital Signs: Vital Signs x48h Temp Pulse Resp BP Pulse Ox 03/25/18 04:40 36.7 C 82 19 101/68 95 12/09/18 04:02 79 17 95/63 96 03/25/18 03:59 81 16 79/60 L 96 03/25/18 03:12 85 16 91/63 95 03/25/18 02:43 92/61 03/25/18 02:40 36.8 C 86 18 85/44 L 95 03/25/18 02:10 82 16 106/75 95 03/25/18 01:00 81 18 106/60 94 03/25/18 00:41 78 15 107/66 100 03/24/18 23:41 77 17 127/80 100 03/24/18 23:18 37.8 C H 101 H 18 127/80 97 - Physical Exam General Appearance: positive: No acute distress Eyes Bilateral: positive: Normal inspection ENT: positive: ENT inspection nml Neck: positive: Nml inspection Respiratory: positive: Chest non-tender Cardiovascular: positive: No murmur, No gallop, Irregularly irregular. negative: Extrasystoles, Tachycardia Abdomen: positive: No organomegaly, Nml bowel sounds, No distention, Tenderness, Other (Minimal tenderness of the suprapubic and right lower quadrant) Back: positive: Nml inspection Extremities: positive: Nml appearance, No pedal edema Neurologic/Psychiatric: positive: Oriented x3, CN's nml (2-12), Motor nml Conclusion/Plan - Problem List (1) Gastrointestinal bleeding, lower Conclusion/Plan: Acute GI bleed with drop in hemoglobin records as well as blood pressure with increase in heart rate. Patient will be admitted for observation with trending of labs. Given the recent colonoscopy in January 2018 with the results only showing diverticulosis and no other source of bleeding, and given the fact that she has an outpatient follow-up with GI later this week, I think it would be reasonable to continue to monitor the patient for further bleeding or drops in hemoglobin and hematocrit and if she does not have either of these she may be appropriate for discharge with outpatient follow-up. Otherwise if there does continue to be evidence of bleeding with either significant vital sign changes, drops in hemoglobin and hematocrit, or significant witnessed rectal bleeding, a general surgery consult for possible repeat colonoscopy may be indicated. (2) Anticoagulant long-term use Conclusion/Plan: Given recent GI bleeding, will hold Eliquis. Long-term decision making pending clinical course. Patient has an appointment April 02 with production worker and may be worth discussing the pros and cons of anticoagulation. Overall I would eventually recommend resuming anticoagulation for secondary stroke prevention given her history of CHF, but will defer this ultimately pending clinical course and family decision. (3) Atrial fibrillation Conclusion/Plan: As stated above we will hold anticoagulants for now, given the below blood pressure will hold antihypertensives for now. Continue to monitor for tachyca rdia and may resume low-dose beta-zoya for rate control if necessary. Qualifiers: Atrial fibrillation type: chronic Qualified Code(s): I48.2 - Chronic atrial fibrillation (4) CHF (congestive heart failure) Conclusion/Plan: Underlying etiology of the CHF is not well-known. Patient does not seem to be hypervolemic or hypovolemic. Will hold beta-zoya for now given low blood pressure. Otherwise when pressure stabilized we will resume home medications. Qualifiers: Heart failure type: high output Qualified Code(s): I50.83 - High output heart failure - Lab Results Lab results reviewed: Yes Ayaz Bones: 03/25/18 02:52 03/24/18 23:19 Core Measures - Anticipated LOS I expect patient to be DC'd or transferred within 96 hours.: Yes - DVT/VTE - Prophylaxis VTE/DVT Device ordered at admit?: Yes
[2018-03-25] MEDS: SODIUM CHLORIDE 0.9% 1,000 ML IV SCH ×2 (05:57→15:32)
[2018-03-25] MEDS: SODIUM CHLORIDE FLUSH 0.9% 10 ML SYRINGE IVP PRN (05:58)
[2018-03-25] MEDS ORDERED: PANTOPRAZOLE 40 MG VIAL IVP SCH (07:00)
[2018-03-25] MEDS ORDERED: FUROSEMIDE 40 MG TABLET PO SCH (08:00)
[2018-03-25] MEDS ORDERED: MULTIVITAMIN PO SCH (09:00)
[2018-03-25] MEDS ORDERED: METOPROLOL TARTRATE 50 MG TABLET PO SCH (09:00)
[2018-03-25] MEDS: POLYETHYLENE GLYCOL 3350 17 GM PACKET PO SCH (09:04)
[2018-03-25] MEDS: MULTIVITAMIN TABLET PO SCH (09:10)
[2018-03-25] MEDS: LACTOB/S.THERMOPHL/BIFIDO CAPSULE PO SCH (09:10)
[2018-03-25] MEDS: SODIUM CHLORIDE FLUSH 0.9% 10 ML SYRINGE IVP SCH ×2 (09:11→15:46)
[2018-03-25 09:28] LABS: HGB - HEMOGLOBIN 10.1 g/dL (12.0-16.0)
[2018-03-25] MEDS ORDERED: FUROSEMIDE 20 MG TABLET PO SCH (16:00)
[2018-03-25] MEDS ORDERED: CALCIUM CARB (OYSTER SHELL) 500 MG TABLET PO SCH (17:00)
[2018-03-25] MEDS ORDERED: POTASSIUM CHLORIDE 20 MEQ TABLET PO SCH (17:00)
[2018-03-25] MEDS: METOPROLOL SUCCINATE 25 MG TABLET PO SCH (18:00)
[2018-03-26] MEDS: SODIUM CHLORIDE FLUSH 0.9% 10 ML SYRINGE IVP SCH ×2 (04:20→08:25)
[2018-03-26 05:42] LABS: HGB - HEMOGLOBIN 10.3 g/dL (12.0-16.0); MEAN CORPUSCULAR HEMOGLOBIN 30.4 pg (27.0-31.0); MEAN CORPUSCULAR HGB CONC 32.7 g/dL (32.0-36.0); MEAN CORPUSCULAR VOLUME 92.9 fL (81.0-99.0); RED BLOOD COUNT 3.4 10^6/uL (4.20-5.40); RED CELL DISTRIBUTION WIDTH 14.2 % (12.0-15.0); WHITE BLOOD COUNT 3.2 x10^3/uL (4.8-10.8)
[2018-03-26 05:58] LABS: ALBUMIN 3.4 g/dL (3.2-5.5); ALBUMIN/GLOBULIN RATIO 1.1 (1.0-2.2); BILIRUBIN,TOTAL 0.6 mg/dL (0.2-1.0); CALCIUM 8.6 mg/dL (8.5-10.3); CREATININE 0.9 mg/dL (0.4-1.0); TOTAL PROTEIN 6.5 g/dL (6.7-8.2)
[2018-03-26] MEDS: SODIUM CHLORIDE FLUSH 0.9% 10 ML SYRINGE IVP PRN (06:55)
[2018-03-26] MEDS ORDERED: PANTOPRAZOLE 40 MG TABLET PO SCH (07:00)
[2018-03-26] MEDS ORDERED: FUROSEMIDE 20 MG TABLET PO SCH (08:00)
--- NOTE | 2018-03-26 08:19 | Discharge Plan ---
Discharge Plan Disposition: Home, Self Care Condition: Good Prescriptions: Metoprolol Succinate [Toprol Xl] 12.5 mg PO BIDWM #30 tablet Wheat Dextrin [Benefiber] 1 each PO DAILY #30 packet Diet: Soft Activity Restrictions: No Restrictions Shower Restrictions: No Driving Restrictions: No Weight Bearing: Full Weight Additional Instructions or Follow Up instructions: You were admitted for rectal bleeding, which resolved. Your blood levels did go down, but not enough for a blood transfusion. You should remain off of your Eliquis. It is expected to be in your body for 48-72 hours past the last dose. Since you have not had any further bleeding, you will likely not have any more bleeding at home. Please continue your daily bene-fiber to treat your diverticulosis. I changed your metoprolol to the most favorable type for your atrial fibrillation, a new prescription is at the pharmacy. 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 No Smoking: If you smoke, Please STOP! Call for help. Follow-up with: Larissa Steen PA-C [Primary Care Provider] -
[2018-03-26] MEDS: MULTIVITAMIN TABLET PO SCH (08:23)
[2018-03-26] MEDS: LACTOB/S.THERMOPHL/BIFIDO CAPSULE PO SCH (08:23)
[2018-03-26] MEDS: METOPROLOL SUCCINATE 25 MG TABLET PO SCH (08:24)
[2018-03-26] MEDS: POLYETHYLENE GLYCOL 3350 17 GM PACKET PO SCH (08:24)
--- NOTE | 2018-03-26 08:45 | DISCHARGE SUMMARY ---
"Discharge Summary Admit Date: 03/25/18 Discharge Date: 03/26/18 Discharging Provider: HARIS Berrios Primary Care Provider: Deanne Villavicencio Code Status: Attempt Resuscitation Condition at Discharge: Good Discharge Disposition: 01 Home, Self Care - DIAGNOSES Admission Diagnoses: Hemorrhage of anus and rectum (K62.5) Unspecified atrial fibrillation (I48.91) Heart failure, unspecified (I50.9) Discharge Diagnoses with Status of Each Condition: Rectal bleeding (K62.5) resolved after stopping Eliquis. Atrial fibrillation (I48.91) chronic, metoprolol changed to appropriate form. New prescriptions sent to the pharmacy. CHF (congestive heart failure) (I50.9) chronic, stable. Diverticulosis (K57.90) chronic, sent benefiber to the pharmacy for daily use. Anticoagulant adverse reaction (T45.515A) Failure of use even after resuming at 1/2 the recommended dose. Rectal bleeding resolved. History of hiatal hernia (Z87.19) chronic, patient on PPI. Urinary incontinence (R32) chronic, stable. - HPI History of Present Illness: HPI per Dr. Collins: Kathryn (Arrow) Jesus is a 73-year-old female with a past medical history inclusive of atrial fibrillation, previous history of GI bleed in January 2018, CHF who presents to the emergency room room having had 2 episodes of rectal bleeding on the evening prior to admission. Patient states that approximately 6 PM she had a bowel movement with bright red blood per rectum followed by a second bowel movement at approximately 10 PM described as darker blood in the stool. She also has a history of atrial fibrillation on Eliquis and had a previous lower GI bleed in January 2018 where she was evaluated and [facility] with the workup including a colonoscopy and endoscopy, and although blood loss was significant requiring a blood transfusion, apparently according to the family there were no significant abnormalities on the scopes and the only change made was the decrease in dose of the Eliquis.She has a follow-up with her outpatient GI specialist next week. She went to the emergency room where a full evaluation was formed including labs and the patient had mild anemia initially, followed by a single point drop in hemoglobin and hematocrit a few hours later. She started off with normal blood pressures in the 120s over 80s, however this began to drop with blood pressures in the 80s over 60s at which point Dr. Robert became concerned with the GI bleed and drop in blood pressure and ensuing tachycardia and asked us to admit the patient and further workup and monitoring. - CONSULTS | PROCEDURES Consultations: General surgery phone consult Procedures: None. - HOSPITAL COURSE Hospital Course: The patient was stabilized and did not require any blood transfusions. Records from [facility] were reviewed which noted the removal of several polyps and the patient's underlying diverticulosis, which may have been the source of her bleeding. Precautions were taken after this procedure by resuming the Eliquis at only 1/2 the recommended dose, but with her continued bleeding she may no longer be candidate for anticoagulation for her chronic atrial fibrillation. She should take daily benefiber to prevent diverticulitis. She was medically stable and transported via private car home with daughter. - ALLERGIES Allergies/Adverse Reactions: Allergies Allergy/AdvReac Type Severity Reaction Status Date / Time No Known Drug Allergies Allergy Verified 03/24/18 23:22 - MEDICATIONS Home Medications: Ambulatory Orders Medication Instructions Recorded Confirmed Calcium Carbonate/Vitamin D3 600 mg PO QDDINNER 07/24/15 03/24/18 [Calcium 600-Vit D3 800 Tablet] Furosemide 40 mg PO 0800 07/24/15 03/24/18 Pantoprazole Sodium 40 mg PO QDAC 07/24/15 03/24/18 Lisinopril 2.5 mg PO 1600 05/03/16 03/24/18 Multivitamin [Multivitamins] 1 cap PO DAILY 05/03/16 03/24/18 Potassium Chloride 40 mg PO 1700 05/03/16 03/24/18 Furosemide 20 mg PO 1600 07/10/17 03/24/18 L.acid/L.casei/B.bif/B.rony/Fos 1 cap PO DAILY 03/24/18 03/24/18 [Probiotic Blend Capsule] Metoprolol Succinate [Toprol Xl] 12.5 mg PO BIDWM #30 tablet 03/25/18 Wheat Dextrin [Benefiber] 1 each PO DAILY #30 packet 03/26/18 - PHYSICAL EXAM AT DISCHARGE General Appearance: positive: No acute distress, Alert Eyes Bilateral: positive: PERRL ENT: positive: ENT inspection nml, Pharynx nml, Dry mucous membranes Neck: positive: Thyroid nml, No JVD, Trachea midline Respiratory: positive: Chest non-tender, No respiratory distress, Breath sounds nml Cardiovascular: positive: Regular rate & rhythm, No gallop, Systolic murmur Peripheral Pulses: positive: 2+ Abdomen: positive: Non-tender, Nml bowel sounds, Other (rounded, soft) Back: positive: Nml inspection Skin: positive: Color nml, No rash, Warm, Dry Extremities: positive: Non-tender, Full ROM, Pedal edema (generalized, chronic BLEs) Neurologic/Psychiatric: positive: Oriented x3, CN's nml (2-12), Motor nml, Sensation nml, Mood/affect nml Reflexes: Bicep (R): 3+, Bicep (L): 3+ - LABS Result Diagrams: 03/26/18 05:31 03/26/18 05:31 - SEPSIS Current Stage of Sepsis: Ruled out - FOLLOW UP Follow Up: Disposition: Home, Self Care Condition: Good Prescriptions: Metoprolol Succinate [Toprol Xl] 12.5 mg PO BIDWM #30 tablet Wheat Dextrin [Benefiber] 1 each PO DAILY #30 packet Diet: Soft Additional Instructions or Follow Up instructions: You were admitted for rectal bleeding, which resolved. Your blood levels did go down, but not enough for a blood transfusion. You should remain off of your Eliquis. It is expected to be in your body for 48-72 hours past the last dose. Since you have not had any further bleeding, you will likely not have any more bleeding at home. Please continue your daily bene-fiber to treat your diverticulosis. I changed your metoprolol to the most favorable type for your atrial fibrillation, a new prescription is at the pharmacy. 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 - TIME SPENT Time Spent in Discharge (Minutes): 50"
[2018-03-26 11:41] VITALS: BP 118/61
== END 2018-03-26 12:00 | disposition home or self-care (01) | DRG 379 ==
LOC: ED 23:06 → MS2 03-25 04:00 → OBSVTOIN 03-25 10:16
PROVIDERS: ADMIT Family Medicine Sports Medicine; ATTEND Nurse Practitioner
DX: K92.2 Gastrointestinal hemorrhage, unspecified (principal); K62.5 Hemorrhage of anus and rectum; I48.2 Chronic atrial fibrillation; I50.9 Heart failure, unspecified; K59.09 Other constipation; K57.90 Diverticulosis of intestine, part unspecified, without perforation or abscess without bleeding; R32 Unspecified urinary incontinence; H54.7 Unspecified visual loss; M19.90 Unspecified osteoarthritis, unspecified site; M81.0 Age-related osteoporosis without current pathological fracture; Z87.01 Personal history of pneumonia (recurrent); Z79.01 Long term (current) use of anticoagulants; Z79.899 Other long term (current) drug therapy; Z86.010 Personal history of colon polyps
CPT/HCPCS: 36415; 80053; 83690; 85014; 85018; 85025; 85027; 85610; 86850; 86900; 86901; 96360; 96361; 96374; 99284; 99285

== ENCOUNTER 2018-04-05 08:00 | Outpatient (CLI) | payer MEDICARE, MEDICAID ==
[2018-04-05 13:53] LABS: CALCIUM 8.7 mg/dL (8.5-10.3); CREATININE 1.1 mg/dL (0.4-1.0)
== END 2018-04-05 23:59 | disposition home or self-care (01) ==
LOC: LAB.WCP 08:00
PROVIDERS: ATTEND Internal Medicine Cardiovascular Disease
DX: E87.6 Hypokalemia (principal)
CPT/HCPCS: 36415; 80048

== ENCOUNTER 2018-06-07 12:19 | Outpatient (CLI) | payer MEDICARE, MEDICAID ==
[2018-06-07 19:34] LABS: BASOPHILS % (AUTO) 0.7 %; EOSINOPHILS # (AUTO) 0.1 10^3/uL (0.0-0.7); EOSINOPHILS % (AUTO) 1.2 %; HGB - HEMOGLOBIN 12.6 g/dL (12.0-16.0); LYMPHOCYTES # (AUTO) 1.2 10^3/uL (1.5-3.5); LYMPHOCYTES % (AUTO) 22.2 %; MEAN CORPUSCULAR HEMOGLOBIN 30.1 pg (27.0-31.0); MEAN CORPUSCULAR HGB CONC 32.5 g/dL (32.0-36.0); MEAN CORPUSCULAR VOLUME 92.5 fL (81.0-99.0); MEAN PLATELET VOLUME 7.6 fL (7.9-10.8); MONOCYTES # (AUTO) 0.5 10^3/uL (0.0-1.0); MONOCYTES % (AUTO) 8.9 %; NEUTROPHILS # (AUTO) 3.7 10^3/uL (1.5-6.6); PLT - PLATELET COUNT 231 10^3/uL (130-450); RED BLOOD COUNT 4.19 10^6/uL (4.20-5.40); RED CELL DISTRIBUTION WIDTH 14.5 % (12.0-15.0); WHITE BLOOD COUNT 5.5 x10^3/uL (4.8-10.8)
[2018-06-07 20:17] LABS: % IRON SATURATION 16 % (20-50); IRON 64 ug/dL (28-170); TOTAL IRON BINDING CAPACITY 393 ug/dL (250-450); TRANSFERRIN 281 mg/dL (192-382)
== END 2018-06-07 12:20 | disposition home or self-care (01) ==
LOC: LAB.WCP 12:19
PROVIDERS: ATTEND Student in an Organized Health Care Education/Training Program
DX: D62 Acute posthemorrhagic anemia (principal)
CPT/HCPCS: 36415; 83540; 84466; 85025

== ENCOUNTER 2018-08-02 08:00 | Outpatient (CLI) | payer MEDICARE, MEDICAID ==
[2018-08-02 12:53] LABS: BASOPHILS # (AUTO) 0.1 10^3/uL (0.0-0.1); BASOPHILS % (AUTO) 1.1 %; EOSINOPHILS # (AUTO) 0.1 10^3/uL (0.0-0.7); EOSINOPHILS % (AUTO) 2.9 %; HGB - HEMOGLOBIN 11.9 g/dL (12.0-16.0); LYMPHOCYTES # (AUTO) 1.1 10^3/uL (1.5-3.5); LYMPHOCYTES % (AUTO) 22.2 %; MEAN CORPUSCULAR HGB CONC 33.1 g/dL (32.0-36.0); MEAN CORPUSCULAR VOLUME 93.6 fL (81.0-99.0); MEAN PLATELET VOLUME 7.6 fL (7.9-10.8); MONOCYTES # (AUTO) 0.6 10^3/uL (0.0-1.0); MONOCYTES % (AUTO) 12.6 %; NEUTROPHILS % (AUTO) 61.2 %; PLT - PLATELET COUNT 220 10^3/uL (130-450); RED BLOOD COUNT 3.84 10^6/uL (4.20-5.40); RED CELL DISTRIBUTION WIDTH 14.6 % (12.0-15.0); WHITE BLOOD COUNT 4.9 x10^3/uL (4.8-10.8)
== END 2018-08-02 23:59 | disposition home or self-care (01) ==
LOC: LAB.WCP 08:00
PROVIDERS: ATTEND Physician Assistant Medical
DX: D64.9 Anemia, unspecified (principal)
CPT/HCPCS: 36415; 82728; 85025

== ENCOUNTER 2018-10-01 21:11 | Emergency (ER) | payer MEDICARE, MEDICAID ==
[2018-10-01 22:04] LABS: BASOPHILS % (AUTO) 0.9 %; EOSINOPHILS # (AUTO) 0.1 10^3/uL (0.0-0.7); EOSINOPHILS % (AUTO) 3.4 %; HGB - HEMOGLOBIN 12.1 g/dL (12.0-16.0); LYMPHOCYTES # (AUTO) 0.9 10^3/uL (1.5-3.5); LYMPHOCYTES % (AUTO) 21.9 %; MEAN CORPUSCULAR HEMOGLOBIN 32.1 pg (27.0-31.0); MEAN CORPUSCULAR HGB CONC 33.8 g/dL (32.0-36.0); MEAN PLATELET VOLUME 7.2 fL (7.9-10.8); MONOCYTES # (AUTO) 0.5 10^3/uL (0.0-1.0); MONOCYTES % (AUTO) 13.2 %; NEUTROPHILS # (AUTO) 2.5 10^3/uL (1.5-6.6); NEUTROPHILS % (AUTO) 60.6 %; PLT - PLATELET COUNT 234 10^3/uL (130-450); RED BLOOD COUNT 3.75 10^6/uL (4.20-5.40); RED CELL DISTRIBUTION WIDTH 12.6 % (12.0-15.0); WHITE BLOOD COUNT 4.1 x10^3/uL (4.8-10.8)
[2018-10-01 22:16] LABS: BILIRUBIN,TOTAL 0.6 mg/dL (0.2-1.0); CALCIUM 9.1 mg/dL (8.5-10.3); CREATININE 1.1 mg/dL (0.4-1.0)
--- NOTE | 2018-10-01 23:09 | XRAY Report ---
Reason: SOA, chest pain Procedure Date: 10/01/2018 Accession Number: [id number] / [id number] Procedure: XR - Chest 2 View X-Ray CPT Code: 80087 FULL RESULT: EXAM: CHEST RADIOGRAPHY EXAM DATE: 10/01/2018 10:39 PM. CLINICAL HISTORY: Short of breath, chest pain. COMPARISON: CHEST 2 VIEW PA/LAT 02/19/2018 1:57 PM, CHEST W/ 05/26/2017 2:08 PM. TECHNIQUE: 2 views. FINDINGS: Lungs/Pleura: Probable atelectasis adjacent to the hiatal hernia in both lung bases. Lungs otherwise grossly clear. No large effusion. Mediastinum: Chronic very large hiatal hernia. Heart is probably mildly enlarged but obscured. Grossly stable aortic contour were seen. Large central pulmonary arteries better seen by previous CT. Other: None. IMPRESSION: 1. Known very large chronic hiatal hernia with similar appearance to previous studies. 2. Cardiomegaly without overt heart failure. 3. Mild basilar opacities are likely scarring/atelectasis adjacent to the hiatal hernia. RADIA
--- NOTE | 2018-10-02 01:27 | ED Physician Documentation ---
PD HPI DYSPNEA - Stated complaint Stated Complaint: LABORED BREATHING/CHEST TIGHTNING - Chief complaint Chief Complaint: Resp - History obtained from History obtained from: Patient, Family - History of Present Illness Timing - onset: Today Timing - onset during: Rest Timing - duration: Hours Timing - details: Abrupt onset, Now resolved Inciting event(s): Other (after eating). No: Out of meds, URI Improved by: Rest Worsened by: Exertion Associated symptoms: No: Fever, Cough, Hemoptysis, Wheezing, Chest pain / discomfort Similar symptoms before: Diagnosis (dyspena on exertion) Recently seen: Not recently seen - Additional information Additional information: 73-year-old female who has a history of exertional dyspnea has recently returned from helping out with her grandchildren and this evening she was sitting on her couch back at her daughter's house where she lives and her daughter noted that she was short of breath at rest. This is abnormal for the patient and the patient was emotional at the time. She is also recently eaten. The patient will usually have exertional dyspnea walking across the room or getting in and out of bed or talking too much. She does not usually have dyspnea at rest. Review of Systems Constitutional: denies: Fever Eyes: denies: Decreased vision Ears: denies: Ear pain Nose: denies: Congestion Throat: denies: Sore throat Cardiac: denies: Chest pain / pressure, Palpitations Respiratory: reports: Dyspnea. denies: Cough GI: denies: Abdominal Pain, Nausea, Vomiting : denies: Dysuria, Frequency PD PAST MEDICAL HISTORY - Past Medical History Past Medical History: Yes Cardiovascular: Congestive heart failure, Atrial fibrillation Respiratory: Pneumonia Endocrine/Autoimmune: None GI: Hiatal hernia, Chronic constipation, Other : Incontinence HEENT: Chronic vision loss, Other Psych: None Musculoskeletal: Osteoarthritis, Osteoporosis - Past Surgical History Past Surgical History: Yes General: Hiatal hernia repair Ortho: Other - Present Medications Home Medications: Ambulatory Orders Medication Instructions Recorded Confirmed Calcium Carbonate/Vitamin D3 600 mg PO QDDINNER 07/24/15 03/24/18 [Calcium 600-Vit D3 800 Tablet] Furosemide 40 mg PO 0800 07/24/15 03/24/18 Pantoprazole Sodium 40 mg PO QDAC 07/24/15 03/24/18 Lisinopril 2.5 mg PO 1600 05/03/16 03/24/18 Multivitamin [Multivitamins] 1 cap PO DAILY 05/03/16 03/24/18 Potassium Chloride 40 mg PO 1700 05/03/16 03/24/18 Furosemide 20 mg PO 1600 07/10/17 03/24/18 L.acid/L.casei/B.bif/B.rony/Fos 1 cap PO DAILY 03/24/18 03/24/18 [Probiotic Blend Capsule] Metoprolol Succinate [Toprol Xl] 12.5 mg PO BIDWM #30 tablet 03/25/18 Wheat Dextrin [Benefiber] 1 each PO DAILY #30 packet 03/26/18 - Allergies Allergies/Adverse Reactions: Allergies Allergy/AdvReac Type Severity Reaction Status Date / Time No Known Drug Allergies Allergy Verified 03/24/18 23:22 - Social History Does the pt smoke?: No Smoking Status: Never smoker Does the pt drink ETOH?: No Does the pt have substance abuse?: No - Immunizations Immunizations are current?: Yes Immunizations: TDAP current <10years - POLST Patient has POLST: Yes POLST Status: Full Code PD ED PE NORMAL - Vitals Vital signs reviewed: Yes (hypertensive diastolic ) - General General: Alert and oriented X 3, No acute distress, Well developed/nourished - HEENT HEENT: Atraumatic, PERRL, EOMI - Neck Neck: Supple, no meningeal sign, No bony TTP - Cardiac Cardiac: RRR, No murmur - Respiratory Respiratory: No respiratory distress, Other (diminished breath sounds in the bases) - Abdomen Abdomen: Soft, Non tender - Back Back: No CVA TTP, No spinal TTP - Derm Derm: Normal color, Warm and dry, No rash - Extremities Extremities: No deformity, No edema - Neuro Neuro: Alert and oriented X 3, sewer pipe layer 2-12 intact, No motor deficit, No sensory deficit, Normal speech Eye Opening: Spontaneous Motor: Obeys Commands Verbal: Oriented GCS Score: 15 - Psych Psych: Normal mood, Normal affect Results - Vitals Vitals: Vital Signs - 24 hr 10/01/18 10/01/18 10/02/18 21:40 23:25 00:42 Temperature 36.7 C 36.5 C Heart Rate 88 81 85 Respiratory 20 18 16 Rate Blood Pressure 134/97 H 103/60 107/75 O2 Saturation 95 97 100 10/02/18 01:29 Temperature Heart Rate 79 Respiratory 17 Rate Blood Pressure 109/49 L O2 Saturation 98 Oxygen O2 Source Room air - EKG (time done) 2141 Rate: Rate (enter#) (87) Rhythm: Atrial fibrillation [place]: RAD QRS: Low voltage Ischemia: ST depression Compare to prior EKG: Unchanged from prior EKG (SPT 05-03-16 no significant change) Computer interpretation: Agree with computer - Labs Labs: Laboratory Tests 10/01/18 10/01/18 10/01/18 21:55 21:55 21:55 WBC 4.1 L RBC 3.75 L Hgb 12.1 Hct 35.7 L MCV 95.0 MCH 32.1 H MCHC 33.8 RDW 12.6 Plt Count 234 MPV 7.2 L Neut # (Auto) 2.5 Lymph # (Auto) 0.9 L [place] # (Auto) 0.5 Eos # (Auto) 0.1 Baso # (Auto) 0.0 Absolute Nucleated RBC 0.00 Nucleated RBC % 0.1 Sodium 139 Potassium 3.8 Chloride 99 L Carbon Dioxide 30 Anion Gap 10.0 BUN 21 H Creatinine 1.1 H Estimated GFR (MDRD) 48 L Glucose 105 H Calcium 9.1 Total Bilirubin 0.6 AST 31 ALT 18 Alkaline Phosphatase 100 Troponin I < 0.04 Total Protein 8.0 Albumin 4.0 Globulin 4.0 Albumin/Globulin Ratio 1.0 Lipase 28 - Rads (name of study) chest Radiology: Prelim report reviewed (Impression: 1. Known very large chronic h iatal hernia with similar appearance to previous studies. Cardia megaly without overt heart failure. Mild basilar opacities are likely scarring/atelectasis adjacent to the hiatal hernia.), EMP read indepedently, See rad report PD MEDICAL DECISION MAKING - ED course Complexity details: reviewed results, re-evaluated patient, considered differential, d/w patient, d/w family ED course: 73-year-old female with acute shortness of breath after eating has an impressive large hiatal hernia. I suspect this may have been the reason for her dyspnea at rest. Here in the emergency department she is not having these symptoms. Her lung exam is without wheeze or rhonchi. Her oxygen saturation is normal. The remainder of her diagnostics are unremarkable with the exception of the large hiatal hernia which is unchanged from its usual. Departure - Departure Disposition: 01 Home, Self Care Clinical Impression: Hiatal hernia Condition: Stable Instructions: Hiatal Hernia Follow-Up: Larissa Steen PA-C [Primary Care Provider] - Discharge Date/Time: 10/02/18 01:35
[2018-10-02 01:30] VITALS: BP 109/49
== END 2018-10-02 01:35 | disposition home or self-care (01) ==
LOC: ED 21:11
DX: K44.9 Diaphragmatic hernia without obstruction or gangrene (principal); R06.09 Other forms of dyspnea; I48.91 Unspecified atrial fibrillation
CPT/HCPCS: 36415; 71046; 80053; 83690; 84484; 85025; 93005; 99283

== ENCOUNTER 2018-10-17 08:00 | Outpatient (CLI) | payer MEDICARE, MEDICAID ==
[2018-10-17 19:34] LABS: BASOPHILS # (AUTO) 0.1 10^3/uL (0.0-0.1); EOSINOPHILS # (AUTO) 0.1 10^3/uL (0.0-0.7); EOSINOPHILS % (AUTO) 2.5 %; HGB - HEMOGLOBIN 12.3 g/dL (12.0-16.0); LYMPHOCYTES # (AUTO) 1.3 10^3/uL (1.5-3.5); LYMPHOCYTES % (AUTO) 24.6 %; MEAN CORPUSCULAR HEMOGLOBIN 30.8 pg (27.0-31.0); MEAN CORPUSCULAR HGB CONC 30.3 g/dL (32.0-36.0); MEAN CORPUSCULAR VOLUME 101.8 fL (81.0-99.0); MEAN PLATELET VOLUME 9.6 fL (7.9-10.8); MONOCYTES # (AUTO) 0.5 10^3/uL (0.0-1.0); MONOCYTES % (AUTO) 9.8 %; NEUTROPHILS # (AUTO) 3.2 10^3/uL (1.5-6.6); NEUTROPHILS % (AUTO) 61.7 %; PLT - PLATELET COUNT 267 10^3/uL (130-450); RED BLOOD COUNT 3.99 10^6/uL (4.20-5.40); RED CELL DISTRIBUTION WIDTH 11.8 % (12.0-15.0); WHITE BLOOD COUNT 5.1 x10^3/uL (4.8-10.8)
[2018-10-17 19:54] LABS: CREATININE 1.1 mg/dL (0.4-1.0)
== END 2018-10-17 08:01 | disposition home or self-care (01) ==
LOC: LAB.WCP 08:00
PROVIDERS: ATTEND Internal Medicine Cardiovascular Disease
DX: I48.2 Chronic atrial fibrillation (principal)
CPT/HCPCS: 36415; 80048; 85025

== ENCOUNTER 2019-06-19 08:00 | Outpatient (CLI) | payer MEDICARE, MEDICAID ==
[2019-06-19 12:00] LABS: BASOPHILS # (AUTO) 0.1 10^3/uL (0.0-0.1); BASOPHILS % (AUTO) 1.2 %; EOSINOPHILS # (AUTO) 0.1 10^3/uL (0.0-0.7); EOSINOPHILS % (AUTO) 2.5 %; HGB - HEMOGLOBIN 12.6 g/dL (12.0-16.0); LYMPHOCYTES # (AUTO) 0.9 10^3/uL (1.5-3.5); LYMPHOCYTES % (AUTO) 22.3 %; MEAN CORPUSCULAR HEMOGLOBIN 29.8 pg (27.0-31.0); MEAN CORPUSCULAR HGB CONC 30.4 g/dL (32.0-36.0); MEAN CORPUSCULAR VOLUME 98.1 fL (81.0-99.0); MEAN PLATELET VOLUME 9.9 fL (7.9-10.8); MONOCYTES # (AUTO) 0.4 10^3/uL (0.0-1.0); MONOCYTES % (AUTO) 10.8 %; NEUTROPHILS # (AUTO) 2.6 10^3/uL (1.5-6.6); PLT - PLATELET COUNT 225 10^3/uL (130-450); RED BLOOD COUNT 4.23 10^6/uL (4.20-5.40); RED CELL DISTRIBUTION WIDTH 12.6 % (12.0-15.0); WHITE BLOOD COUNT 4.1 x10^3/uL (4.8-10.8)
[2019-06-19 12:17] LABS: CALCIUM 9.5 mg/dL (8.5-10.3); CREATININE 1.1 mg/dL (0.4-1.0)
[2019-06-19 12:36] LABS: CHOL/HDL RATIO 3.1 (<4.4); CHOLESTEROL 154 mg/dL; HDL CHOLESTEROL 50 mg/dL; LDL CHOLESTEROL,CALCULATED 91 mg/dL; LDL/HDL RATIO 1.8 (<4.4); VLDL CHOLESTEROL 13 mg/dL
== END 2019-06-19 23:59 | disposition home or self-care (01) ==
LOC: LAB.WCP 08:00
PROVIDERS: ATTEND Physician Assistant Medical
DX: K52.9 Noninfective gastroenteritis and colitis, unspecified (principal); R07.89 Other chest pain; R06.09 Other forms of dyspnea
CPT/HCPCS: 36415; 80048; 80061; 83721; 85025

== ENCOUNTER 2019-12-18 09:14 | Outpatient (CLI) | payer MEDICARE, MEDICAID ==
[2019-12-18 12:09] LABS: EOSINOPHILS # (AUTO) 0.1 10^3/uL (0.0-0.7); EOSINOPHILS % (AUTO) 1.8 %; HGB - HEMOGLOBIN 12.5 g/dL (12.0-16.0); LYMPHOCYTES # (AUTO) 0.9 10^3/uL (1.5-3.5); LYMPHOCYTES % (AUTO) 24.3 %; MEAN CORPUSCULAR HEMOGLOBIN 32.1 pg (27.0-31.0); MEAN CORPUSCULAR HGB CONC 32.5 g/dL (32.0-36.0); MEAN PLATELET VOLUME 9.5 fL (7.9-10.8); MONOCYTES # (AUTO) 0.5 10^3/uL (0.0-1.0); MONOCYTES % (AUTO) 12.1 %; NEUTROPHILS # (AUTO) 2.3 10^3/uL (1.5-6.6); NEUTROPHILS % (AUTO) 60.3 %; PLT - PLATELET COUNT 231 10^3/uL (130-450); RED BLOOD COUNT 3.89 10^6/uL (4.20-5.40); WHITE BLOOD COUNT 3.9 x10^3/uL (4.8-10.8)
[2019-12-18 12:35] LABS: ALBUMIN 3.9 g/dL (3.2-5.5); ALBUMIN/GLOBULIN RATIO 1.1 (1.0-2.2); ALKALINE PHOSPHATASE 100 IU/L (42-121); ALT ALANINE AMINOTRANSFERASE 16 IU/L (10-60); AST ASPARTATE AMINOTRANSFERASE 28 IU/L (10-42); BILIRUBIN,TOTAL 0.9 mg/dL (0.2-1.0); BUN - BLOOD UREA NITROGEN 15 mg/dL (6-20); CALCIUM 9.5 mg/dL (8.5-10.3); CARBON DIOXIDE - CO2 29 mmol/L (21-32); CHLORIDE 96 mmol/L (101-111); CHOL/HDL RATIO 2.7 (<4.4); CHOLESTEROL 138 mg/dL; CREATININE 1.1 mg/dL (0.4-1.0); GLUCOSE 100 mg/dL (70-100); HDL CHOLESTEROL 52 mg/dL; LDL CHOLESTEROL,CALCULATED 71 mg/dL; LDL/HDL RATIO 1.4 (<4.4); SODIUM 135 mmol/L (135-145); TOTAL PROTEIN 7.4 g/dL (6.7-8.2); VLDL CHOLESTEROL 15 mg/dL
== END 2019-12-18 23:59 | disposition home or self-care (01) ==
LOC: LAB.WCP 09:14
PROVIDERS: ATTEND Physician Assistant Medical
DX: D64.9 Anemia, unspecified (principal); I50.9 Heart failure, unspecified; I48.91 Unspecified atrial fibrillation
CPT/HCPCS: 36415; 80053; 80061; 83721; 85025

== ENCOUNTER 2020-02-29 09:35 | Emergency (ER) | payer MEDICARE, MEDICAID ==
--- NOTE | 2020-02-29 09:58 | ED Physician Documentation ---
PD HPI FEMALE - Stated complaint Stated Complaint: FEMALE - Chief complaint Chief Complaint: UTI - History obtained from History obtained from: Patient - History of Present Illness Timing - onset: Today, Last night Timing - details: Abrupt onset Associated symptoms: Urinary frequency (typically with stress incontinence and overnight incontinence. Noted blood in pad/underwear with urine this morning.), Hematuria. No: Fever Contributing factors: Other (is on Eliquis.) Recently seen: Not recently seen Review of Systems Constitutional: denies: Fever Throat: denies: Sore throat Respiratory: denies: Dyspnea, Cough GI: denies: Abdominal Pain, Vomiting, Diarrhea : reports: Incontinent, Hematuria (just today). denies: Dysuria PD PAST MEDICAL HISTORY - Past Medical History Cardiovascular: Congestive heart failure, Atrial fibrillation Respiratory: Pneumonia Endocrine/Autoimmune: None GI: Hiatal hernia, Chronic constipation, Other : Incontinence HEENT: Chronic vision loss, Other Psych: None Musculoskeletal: Osteoarthritis, Osteoporosis - Past Surgical History Past Surgical History: Yes General: Hiatal hernia repair Ortho: Other - Present Medications Home Medications: Ambulatory Orders Medication Instructions Recorded Confirmed Calcium Carbonate/Vitamin D3 600 mg PO QDDINNER 07/24/15 03/24/18 [Calcium 600-Vit D3 800 Tablet] Furosemide 40 mg PO 0800 07/24/15 03/24/18 Pantoprazole Sodium 40 mg PO QDAC 07/24/15 03/24/18 Multivitamin [Multivitamins] 1 cap PO DAILY 05/03/16 03/24/18 Potassium Chloride 40 mg PO 1700 05/03/16 03/24/18 lisinopriL [Lisinopril] 2.5 mg PO 1600 05/03/16 03/24/18 Furosemide 20 mg PO 1600 07/10/17 03/24/18 L.acid/L.casei/B.bif/B.rony/Fos 1 cap PO DAILY 03/24/18 03/24/18 [Probiotic Blend Capsule] Metoprolol Succinate [Toprol Xl] 12.5 mg PO BIDWM #30 tablet 03/25/18 Wheat Dextrin [Benefiber] 1 each PO DAILY #30 packet 03/26/18 Cephalexin [Keflex] 500 mg PO TID #15 capsule 02/29/20 - Allergies Allergies/Adverse Reactions: Allergies Allergy/AdvReac Type Severity Reaction Status Date / Time No Known Drug Allergies Allergy Verified 02/29/20 09:53 - Social History Does the pt smoke?: No Smoking Status: Never smoker Does the pt drink ETOH?: No Does the pt have substance abuse?: No - Immunizations Immunizations are current?: Yes Immunizations: TDAP current <10years - POLST Patient has POLST: Yes POLST Status: Full Code PD ED PE NORMAL - Vitals Vital signs reviewed: Yes - General General: Alert and oriented X 3, No acute distress, Well developed/nourished - Abdomen Abdomen: Soft, Non tender - Derm Derm: Normal color, Warm and dry - Neuro Neuro: Alert and oriented X 3, No motor deficit, Normal speech Results - Vitals Vitals: Vital Signs - 24 hr 02/29/20 02/29/20 02/29/20 09:44 10:15 11:07 Temperature 36.8 C 36.8 C Heart Rate 92 97 83 Respiratory 20 18 16 Rate Blood Pressure 123/69 132/81 H 122/72 O2 Saturation 99 97 99 Oxygen O2 Source Room air - Labs Labs: Laboratory Tests 02/29/20 10:00 Urine Color YELLOW Urine Clarity CLEAR Urine pH 8.5 H Ur Specific [place] 1.020 Urine Protein TRACE Urine Glucose (UA) NEGATIVE Urine Ketones NEGATIVE Urine Occult Blood LARGE H Urine Nitrite NEGATIVE Urine Bilirubin NEGATIVE Urine Urobilinogen 1 (NORMAL) Ur Leukocyte Esterase TRACE H Urine RBC 11-25 H Urine WBC 4-5 Ur Squamous Epith Cells NONE SEEN Urine Bacteria Few Ur Microscopic Review INDICATED Urine Culture Comments INDICATED PD MEDICAL DECISION MAKING - ED course Complexity details: reviewed results, considered differential, d/w patient Departure - Departure Disposition: 01 Home, Self Care Clinical Impression: Urinary tract infection Qualifiers: Urinary tract infection type: acute cystitis Hematuria presence: with hematuria Qualified Code(s): N30.01 - Acute cystitis with hematuria Condition: Stable Record reviewed to determine appropriate education?: Yes Instructions: ED UTI Cystitis Female Follow-Up: Larissa Steen PA-C [Primary Care Provider] - Prescriptions: Cephalexin [Keflex] 500 mg PO TID #15 capsule Comments: Your urine does show signs of infection as well as the blood. Stay well- hydrated. Continue usual medications. Cephalexin as directed for 5 days for the infection. Recheck if not improving well over the next few days and return if worsening. Discharge Date/Time: 02/29/20 11:05
[2020-02-29 10:16] LABS: BILIRUBIN,URINE NEGATIVE (NEGATIVE); GLUCOSE, URINE (UA) NEGATIVE (NEGATIVE); KETONES,URINE (UA) NEGATIVE (NEGATIVE); LEUKOCYTE ESTERASE, URINE TRACE (NEGATIVE); NITRITE,URINE NEGATIVE (NEGATIVE); OCCULT BLOOD,URINE LARGE (NEGATIVE); PH,URINE 8.5 PH (5.0-7.5); PROTEIN,URINE TRACE mg/dL (NEGATIVE); UROBILINOGEN,URINE 1 (NORMAL) E.U./dL (NORMAL)
[2020-02-29 10:35] LABS: CLARITY,URINE CLEAR (CLEAR)
[2020-02-29 10:37] LABS: BACTERIA,URINE Few /HPF (None Seen); SQUAMOUS EPITHELIAL CELL,UR NONE SEEN (<= Few)
[2020-02-29] MEDS ORDERED: cephALEXin 250 MG CAPSULE PO STA (10:54)
[2020-02-29 11:09] VITALS: BP 122/72
== END 2020-02-29 11:05 | disposition home or self-care (01) ==
LOC: ED 09:35
DX: N30.01 Acute cystitis with hematuria (principal); I50.9 Heart failure, unspecified
CPT/HCPCS: 81001; 87077; 87086; 87181; 99283; A9270; 81003

== ENCOUNTER 2020-04-27 10:46 | Outpatient (CLI) | payer MEDICARE, MEDICAID ==
--- NOTE | 2020-04-27 16:49 | XRAY Report ---
PROCEDURE: Shoulder 3 View RT INDICATIONS: UNSPECIFIED FALL TECHNIQUE: 3 views of the shoulder were acquired. COMPARISON: None. FINDINGS: Bones: No fractures or dislocations. No suspicious bony lesions. Visualized ribs appear intact. Mi ld to moderate bilateral humeral joint and acromioclavicular joint osteoarthritis. Soft tissues: No suspicious soft tissue calcifications. IMPRESSION: No fracture. No acute osseous lesion. If there persistent symptoms or continued clinical concern for pathology, then repeat plain film radiographs (7-10 days) or advanced imaging (CT, MR, b one scan) should be considered for further evaluation. Reviewed by: Melony Schultz MD, PhD on 04/27/2020 4:47 PM PST Approved by: Melony Schultz MD, PhD on 04/27/2020 4:47 PM PST Station ID: [id number]
--- NOTE | 2020-04-27 16:50 | XRAY Report ---
PROCEDURE: Knee 3 View RT INDICATIONS: UNSPECIFIED FALL TECHNIQUE: 4 views of the right knee(s) were acquired. COMPARISON: None. FINDINGS: Bones: No fractures or dislocations. No suspicious bony lesions. Severe right knee tricompartmental osteoarthritis with severe joint space narrowing, subchondral sclerosis and exuberant marginal osteo phytosis.. Soft tissues: No joint effusion. No suspicious soft tissue calcifications. IMPRESSION: No fracture. No acute osseous lesion. If there persistent symptoms or continued clinical concern for pathology, then repeat plain film radiographs (7-10 days) or advanced imaging (CT, MR, b one scan) should be considered for further evaluation. Reviewed by: Melony Schultz MD, PhD on 04/27/2020 4:48 PM PST Approved by: Melony Schultz MD, PhD on 04/27/2020 4:48 PM PST Station ID: [id number]
== END 2020-04-27 23:59 | disposition home or self-care (01) ==
LOC: DI.N 10:46
PROVIDERS: ATTEND Nurse Practitioner
DX: M19.011 Primary osteoarthritis, right shoulder (principal); M17.11 Unilateral primary osteoarthritis, right knee; W19.XXXA Unspecified fall, initial encounter

== ENCOUNTER 2020-05-27 04:18 | Emergency (ER) | payer MEDICARE, MEDICAID ==
--- NOTE | 2020-05-27 04:29 | ED Physician Documentation ---
PD HPI HEAD INJURY - Stated complaint Stated Complaint: GLF, CONFUSION, HEAD/HAND INJURY - History obtained from History obtained from: Patient - History of Present Illness Mechanism of head injury: Fell Where head injury occurred: Home Timing - onset: How many hours ago (1), Today (she states she got out of bed to go to bathroom, felt lightheaded as she reached for her walker, and fell forward onto hands and knees. Pain left thumb base, right knee. She states she struck head on furniture. Also struck chest. Has some pain in forehead, knee, chest and hand.) Location of injury: Front Associated symptoms: No: LOC, AMS Symptoms worsen with: Palpation. No: Movement Contributing factors: Anticoagulated (due to atrial fib chronic) Similar symptoms before: Has not had sx before Recently seen: Not recently seen Review of Systems Constitutional: denies: Fever Nose: denies: Rhinorrhea / runny nose, Congestion Throat: denies: Sore throat Cardiac: reports: Chest pain / pressure (sternal area.). denies: Palpitations, Pedal edema, Calf pain Respiratory: denies: Cough GI: denies: Abdominal Pain Skin: denies: Abrasion (s), Laceration (s) Neurologic: reports: Generalized weakness (lightheaded when first got out of bed.). denies: Focal weakness, Numbness, Near syncope, Syncope Immunocompromised: denies: Immunocompromised PD PAST MEDICAL HISTORY - Past Medical History Cardiovascular: Congestive heart failure, Atrial fibrillation Respiratory: Pneumonia Endocrine/Autoimmune: None GI: Hiatal hernia, Chronic constipation, Other : Incontinence HEENT: Chronic vision loss, Other Psych: None Musculoskeletal: Osteoarthritis, Osteoporosis - Past Surgical History Past Surgical History: Yes General: Hiatal hernia repair Ortho: Other - Present Medications Home Medications: Ambulatory Orders Medication Instructions Recorded Confirmed Calcium Carbonate/Vitamin D3 600 mg PO QDDINNER 07/24/15 03/24/18 [Calcium 600-Vit D3 800 Tablet] Furosemide 40 mg PO 0800 07/24/15 03/24/18 Pantoprazole Sodium 40 mg PO QDAC 07/24/15 03/24/18 Multivitamin [Multivitamins] 1 cap PO DAILY 05/03/16 03/24/18 Potassium Chloride 40 mg PO 1700 05/03/16 03/24/18 lisinopriL [Lisinopril] 2.5 mg PO 1600 05/03/16 03/24/18 Furosemide 20 mg PO 1600 07/10/17 03/24/18 L.acid/L.casei/B.bif/B.rony/Fos 1 cap PO DAILY 03/24/18 03/24/18 [Probiotic Blend Capsule] Metoprolol Succinate [Toprol Xl] 12.5 mg PO BIDWM #30 tablet 03/25/18 Wheat Dextrin [Benefiber] 1 each PO DAILY #30 packet 03/26/18 cephALEXin [Keflex] 500 mg PO TID #15 capsule 02/29/20 - Allergies Allergies/Adverse Reactions: Allergies Allergy/AdvReac Type Severity Reaction Status Date / Time No Known Drug Allergies Allergy Verified 02/29/20 09:53 - Social History Does the pt smoke?: No Smoking Status: Never smoker Does the pt drink ETOH?: No Does the pt have substance abuse?: No - Immunizations Immunizations are current?: Yes Immunizations: TDAP current <10years - POLST Patient has POLST: Yes POLST Status: Full Code PD ED PE NORMAL - Vitals Vital signs reviewed: Yes - General General: Alert and oriented X 3, No acute distress, Well developed/nourished - HEENT HEENT: PERRL, EOMI, Other (some tenderness upper forehead with mild swelling. ) - Neck Neck: Supple, no meningeal sign, No bony TTP - Cardiac Cardiac: Other (1/6 murmur left chest. ). No: RRR (irregular but normal rate. ) - Respiratory Respiratory: Clear bilaterally, Other (mild sternal area chestwall tednerness without deformity. ) - Abdomen Abdomen: Normal bowel sounds, Soft, Non distended, No organomegaly - Back Back: No CVA TTP, No spinal TTP - Derm Derm: Normal color, Warm and dry - Extremities Extremities: Other (left thumb base with some tenderness. SOme arthritic changes but no obvious deformity acute. Right anterior knee with some tenderness but no effusion and able to flex and extend well, bears weight okay on it. ) Results - Vitals Vitals: Oxygen O2 Source Room air - Labs Labs: Laboratory Tests 05/27/20 05/27/20 05/27/20 04:30 04:30 04:30 WBC 4.5 L RBC 4.26 Hgb 13.7 Hct 42.3 MCV 99.3 H MCH 32.2 H MCHC 32.4 RDW 12.4 Plt Count 222 MPV 9.3 Neut # (Auto) 2.7 Lymph # (Auto) 1.2 L [place] # (Auto) 0.5 Eos # (Auto) 0.1 Baso # (Auto) 0.1 Absolute Nucleated RBC 0.00 Nucleated RBC % 0.0 Sodium 140 Potassium 3.9 Chloride 96 L Carbon Dioxide 32 Anion Gap 12.0 BUN 17 Creatinine 1.0 Estimated GFR (MDRD) 54 L Glucose 122 H Calcium 9.4 Magnesium 2.1 Total Bilirubin 0.8 AST 28 ALT 19 Alkaline Phosphatase 120 Troponin I High Sens 9.9 Total Protein 7.8 Albumin 4.0 Globulin 3.8 Albumin/Globulin Ratio 1.1 Lipase 22 - Rads (name of study) head CT Radiology: Prelim report reviewed (no ICH nor fractures. ), See rad report chest CT Radiology: Prelim report reviewed (lungs okay. COmpressive deformities T2,T3,T6, age indeterminate (new since 2018)), EMP read contemporaneously (comparison wit h CXR 2019 showed at least the T6 compressive change. Patient is not having thoracic pain, just sternal/anterior. COmpressive changes likely old. ), See rad report left hand Radiology: Prelim report reviewed (arthritic changes thumb base without fracture. ), See rad report PD MEDICAL DECISION MAKING - ED course Complexity details: reviewed results (monitor showing rate controlled atrial fib, normal BP, and labs are good. ), re-evaluated patient (she does not seem significantly injured, without concussive changes, able to use thumb and bear weight on knee. ), considered differential, d/w patient Departure - Departure Disposition: 01 Home, Self Care Clinical Impression: Anticoagulant long-term use Fall from slip, trip, or stumble Qualifiers: Encounter type: initial encounter Qualified Code(s): W01.0XXA - Fall on same level from slipping, tripping and stumbling without subsequent striking against object, initial encounter Left thumb sprain Qualifiers: Encounter type: initial encounter Sprain of finger site: metacarpophalangeal joint Qualified Code(s): S63.642A - Sprain of metacarpophalangeal joint of left thumb, initial encounter Head contusion Qualifiers: Encounter type: initial encounter Contusion of head detail: scalp Qualified Code(s): S00.03XA - Contusion of scalp, initial encounter Chest pain Qualifiers: Chest pain type: other chest pain Qualified Code(s): R07.89 - Other chest pain Condition: Stable Record reviewed to determine appropriate education?: Yes Comments: Your EKG shows the atrial fibrillation with rate control. Your basic blood tests are normal. CT of the head does not show any bleeding or injury in the brain compartment. The x-ray of your thumb shows some arthritis but no signs of fracture. The CT of your chest does not show any acute new injuries. You do have arthritic changes and prior compressive deformities of your spine. These could be hurting a little bit more from falling. Use Tylenol 500 mg 4 times a day for the next several days to a week. Activity as tolerated. Follow-up with your primary care. Discharge Date/Time: 05/27/20 08:35
[2020-05-27] MEDS ORDERED: MORPHINE 2 MG/ML CARPUJECT IVP STA (05:01)
[2020-05-27 05:09] LABS: BASOPHILS # (AUTO) 0.1 10^3/uL (0.0-0.1); BASOPHILS % (AUTO) 1.1 %; EOSINOPHILS # (AUTO) 0.1 10^3/uL (0.0-0.7); EOSINOPHILS % (AUTO) 2.5 %; HGB - HEMOGLOBIN 13.7 g/dL (12.0-16.0); LYMPHOCYTES # (AUTO) 1.2 10^3/uL (1.5-3.5); MEAN CORPUSCULAR HEMOGLOBIN 32.2 pg (27.0-31.0); MEAN CORPUSCULAR HGB CONC 32.4 g/dL (32.0-36.0); MEAN CORPUSCULAR VOLUME 99.3 fL (81.0-99.0); MEAN PLATELET VOLUME 9.3 fL (7.9-10.8); MONOCYTES # (AUTO) 0.5 10^3/uL (0.0-1.0); MONOCYTES % (AUTO) 10.1 %; NEUTROPHILS # (AUTO) 2.7 10^3/uL (1.5-6.6); NEUTROPHILS % (AUTO) 59.6 %; PLT - PLATELET COUNT 222 10^3/uL (130-450); RED BLOOD COUNT 4.26 10^6/uL (4.20-5.40); RED CELL DISTRIBUTION WIDTH 12.4 % (12.0-15.0); WHITE BLOOD COUNT 4.5 x10^3/uL (4.8-10.8)
[2020-05-27 05:19] LABS: ALBUMIN/GLOBULIN RATIO 1.1 (1.0-2.2); BILIRUBIN,TOTAL 0.8 mg/dL (0.2-1.0); CALCIUM 9.4 mg/dL (8.5-10.3); MAGNESIUM 2.1 mg/dL (1.7-2.8); TOTAL PROTEIN 7.8 g/dL (6.7-8.2)
[2020-05-27] MEDS ORDERED: IOVERSOL 320 100 ML VIAL IVP ONE ×2 (05:21→06:29)
[2020-05-27] MEDS ORDERED: ACETAMINOPHEN 325 MG TABLET PO STA (07:55)
--- NOTE | 2020-05-27 07:57 | XRAY Report ---
PROCEDURE: Chest 1 View X-Ray INDICATIONS: Chest Pain TECHNIQUE: One view of the chest was acquired. COMPARISON: Chest x-ray 2 view, 10/01/2018. FINDINGS: Surgical changes and devices: None. Lungs and pleura: No pneumothorax. Right basilar opacity is likely atelectasis. Possible small righ t effusion. Mediastinum: Mediastinal contours appear normal. Heart size is normal. There is a large hiatal her antoine. Bones and chest wall: No suspicious bony lesions. Overlying soft tissues appear unremarkable. IMPRESSION: 1. Right basilar pleural atelectasis and possible small right effusion. 2. Large hiatal hernia. No significant discrepancy with the preliminary interpretation. Reviewed by: Khanh Leyva MD on 05/27/2020 7:56 AM PST Approved by: Khanh Leyva MD on 05/27/2020 7:56 AM [facility] Station ID: [id number]
--- NOTE | 2020-05-27 08:00 | XRAY Report ---
PROCEDURE: Hand 3 View LT INDICATIONS: fell, with pain base of thumb/thenar area TECHNIQUE: 3 views of the hand(s) acquired. COMPARISON: Not available. FINDINGS: Bones: No fractures or dislocations. No suspicious bony lesions. Severe first carpal metacarpal lupe int degeneration with subluxation of the first metacarpal which there is [id number] degenerativ e joint disease at 2 first fifth metacarpal phalangeal joints, healing multiple interphalangeal joint s. Soft tissues: No suspicious soft tissue calcifications. IMPRESSION: 1. No acute osseous abnormalities. 2. Severe degenerative joint disease. No significant discrepancy with the preliminary interpretation. Reviewed by: Khanh Leyva MD on 05/27/2020 7:59 AM PST Approved by: Khanh Leyva MD on 05/27/2020 7:59 AM PST Station ID: [id number]
--- NOTE | 2020-05-27 08:33 | CT Report ---
PROCEDURE: HEAD WO INDICATIONS: fell, struck head; on eliquis TECHNIQUE: Noncontrast 4.5 mm thick angled axial sections acquired from the foramen magnum to the vertex. For r adiation dose reduction, the following was used: automated exposure control, adjustment of mA and/or kV according to patient size. COMPARISON: None. FINDINGS: Image quality: Excellent. CSF spaces: Basal cisterns are patent. No extra-axial fluid collections. Ventricles are normal in size and shape. Brain: No midline shift. No intracranial masses or hemorrhage. There is cerebral volume loss. Mild periventricular white matter chronic small vessel ischemic changes are present. Skull and face: Calvarium and visualized facial bones are intact, without suspicious lesions. Front al and occipital scalp swelling. Sinuses: Visualized sinuses and mastoids are clear. IMPRESSION: No acute intracranial abnormality. No intracranial bleed. No skull fracture. No significant discrepancy with the preliminary interpretation. Reviewed by: Khanh Leyva MD on 05/27/2020 8:32 AM [facility] Approved by: Khanh Leyva MD on 05/27/2020 8:32 AM PST Station ID: [id number]
--- NOTE | 2020-05-27 08:46 | CT Report ---
PROCEDURE: CHEST W INDICATIONS: fell, pain in chest and thoracic back CONTRAST: IV CONTRAST: Optiray 320 ml: 100 PO CONTRAST: *NO PO CONTRAST TECHNIQUE: After the administration of intravenous contrast, 5 mm thick sections acquired from the pulmonary api ricarda to the posterior costophrenic angles. 7 mm thick coronal MIP reformats were acquired. For radia tion dose reduction, the following was used: automated exposure control, adjustment of mA and/or kV according to patient size. COMPARISON: CT chest with contrast, 05/26/2017 and 10/03/2015. FINDINGS: Image quality: Excellent. Lungs and pleura: No acute air space opacities. No pleural effusions or pneumothorax. Central and peripheral airways are patent and normal in caliber. Mediastinum: Heart size is normal. No pericardial effusion. No mediastinal or hilar adenopathy by size criteria. Thoracic aorta and central pulmonary arteries are normal in size. Esophagus is edita l in caliber. There is a large hiatal hernia. Bones and chest wall: No suspicious bony lesions. Mild compression fracture of T2, T3, T6 and L1. Ol d or late subacute right eighth, ninth, 10th and 11th) fractures are present. There is a late subacut e x-ray of the medial head of the right clavicle. Degenerative changes are noted in lumbar spine. No axillary or supraclavicular adenopathy by size criteria. Thyroid gland is prominent. Abdomen: Visualized upper abdominal solid organs appear normal. Upper abdominal bowel loops are nor mal in caliber. Gallstones. IMPRESSION: 1. No acute visceral injuries in thorax. 2. Large hiatal hernia. 3. Right basilar atelectasis. 4. Age indeterminate mild compression fracture of T2, T3, T6, and L1, most likely chronic. 5. Old or late subacute right rib fractures. 6. Old or subacute chronic right medial clavicular head fracture. 3. Thyromegaly. Please correlate with thyroid function tests. No significant discrepancy with the preliminary interpretation. Reviewed by: Khanh Leyva MD on 05/27/2020 8:45 AM PST Approved by: Khanh Leyva MD on 05/27/2020 8:45 AM PST Station ID: [id number]
[2020-05-27 10:08] VITALS: BP 101/60
== END 2020-05-27 08:35 | disposition home or self-care (01) ==
LOC: ED 04:18
DX: S63.642A Sprain of metacarpophalangeal joint of left thumb, initial encounter (principal); S00.03XA Contusion of scalp, initial encounter; R07.89 Other chest pain; M25.561 Pain in right knee; W01.190A Fall on same level from slipping, tripping and stumbling with subsequent striking against furniture, initial encounter; Y92.003 Bedroom of unspecified non-institutional (private) residence as the place of occurrence of the external cause; R42 Dizziness and giddiness; R53.1 Weakness; I48.91 Unspecified atrial fibrillation; Z79.01 Long term (current) use of anticoagulants; M19.042 Primary osteoarthritis, left hand; K44.9 Diaphragmatic hernia without obstruction or gangrene
CPT/HCPCS: 36415; 70450; 71045; 71260; 73130; 80053; 83690; 83735; 84484; 85025; 93005; 96374; 99284; A9270; Q9967

== ENCOUNTER 2020-06-16 08:00 | Outpatient (CLI) | payer MEDICARE, MEDICAID ==
[2020-06-16 18:13] LABS: BASOPHILS # (AUTO) 0.1 10^3/uL (0.0-0.1); BASOPHILS % (AUTO) 1.3 %; EOSINOPHILS # (AUTO) 0.1 10^3/uL (0.0-0.7); EOSINOPHILS % (AUTO) 2.3 %; HCT - HEMATOCRIT 41.7 % (37.0-47.0); HGB - HEMOGLOBIN 12.9 g/dL (12.0-16.0); LYMPHOCYTES % (AUTO) 24.3 %; MEAN CORPUSCULAR HEMOGLOBIN 31.8 pg (27.0-31.0); MEAN CORPUSCULAR HGB CONC 30.9 g/dL (32.0-36.0); MEAN CORPUSCULAR VOLUME 102.7 fL (81.0-99.0); MEAN PLATELET VOLUME 9.8 fL (7.9-10.8); MONOCYTES # (AUTO) 0.5 10^3/uL (0.0-1.0); MONOCYTES % (AUTO) 11.8 %; NEUTROPHILS # (AUTO) 2.4 10^3/uL (1.5-6.6); PLT - PLATELET COUNT 240 10^3/uL (130-450); RED BLOOD COUNT 4.06 10^6/uL (4.20-5.40); RED CELL DISTRIBUTION WIDTH 12.7 % (12.0-15.0); WHITE BLOOD COUNT 3.9 x10^3/uL (4.8-10.8)
[2020-06-16 18:27] LABS: THYROID STIMULATING HORMONE 2.39 uIU/mL (0.34-5.60)
[2020-06-16 18:33] LABS: FERRITIN 27.9 ng/mL (11.0-306.8)
[2020-06-16 18:38] LABS: ALBUMIN 3.8 g/dL (3.2-5.5); ALKALINE PHOSPHATASE 144 IU/L (42-121); ALT ALANINE AMINOTRANSFERASE 18 IU/L (10-60); AST ASPARTATE AMINOTRANSFERASE 30 IU/L (10-42); BILIRUBIN,TOTAL 0.7 mg/dL (0.2-1.0); BUN - BLOOD UREA NITROGEN 20 mg/dL (6-20); CALCIUM 9.2 mg/dL (8.5-10.3); CARBON DIOXIDE - CO2 31 mmol/L (21-32); CHLORIDE 99 mmol/L (101-111); CHOL/HDL RATIO 2.6 (<4.4); CHOLESTEROL 128 mg/dL; CREATININE 1.1 mg/dL (0.4-1.0); GFR - MDRD 48 (>89); GLUCOSE 115 mg/dL (70-100); HDL CHOLESTEROL 50 mg/dL; LDL CHOLESTEROL,CALCULATED 63 mg/dL; LDL/HDL RATIO 1.3 (<4.4); POTASSIUM 4.1 mmol/L (3.5-5.0); SODIUM 139 mmol/L (135-145); TOTAL PROTEIN 7.6 g/dL (6.7-8.2); TRIGLYCERIDES 74 mg/dL; VLDL CHOLESTEROL 15 mg/dL
== END 2020-06-16 23:59 | disposition home or self-care (01) ==
LOC: LAB.WCP 08:00
PROVIDERS: ATTEND Physician Assistant Medical
DX: I48.91 Unspecified atrial fibrillation (principal); D64.9 Anemia, unspecified
CPT/HCPCS: 36415; 80053; 80061; 82728; 83721; 84443; 85025

== ENCOUNTER 2020-06-22 08:20 | Outpatient (CLI) | payer MEDICARE, MEDICAID ==
--- NOTE | 2020-06-22 09:28 | DEXA Report ---
PROCEDURE: Dexa Spine and/or Hip INDICATIONS: POSTMENOPAUSAL TECHNIQUE: Dual energy x-ray absorptiometry (DXA) was performed on a [employer] System. Regions measur ed are the AP Spine, femoral neck, and if needed forearm. COMPARISON: None. FINDINGS: Lumbar Spine: Bone Mineral Density 0.838 g/cm/cm,T score -2.9, Left Femoral Neck: Bone Mineral Density 0.565 g/cm/cm, T score -3.5, (T score greater or equal to -1.0: NORMAL) (T score from -1.1 to -2.4: OSTEOPENIA) (T score less than or equal to -2.5 to: OSTEOPOROSIS) Impression: Osteoporosis. Patients with diagnosis of osteoporosis or osteopenia should have regular bone mineral density assess ment. For those eligible for Medicare, routine testing is allowed once every 2 years. Testing frequ ency can be increased for patients who have rapidly progressing disease or for those who are receivin g medical therapy to restore bone mass. Reviewed by: Augustine Mays MD on 06/22/2020 9:27 AM PST Approved by: Augustine Mays MD on 06/22/2020 9:27 AM PST Station ID: [id number]
== END 2020-06-22 08:21 | disposition home or self-care (01) ==
LOC: DI 08:20
PROVIDERS: ATTEND Physician Assistant Medical
DX: M81.0 Age-related osteoporosis without current pathological fracture (principal)

== ENCOUNTER 2020-07-31 08:00 | Outpatient (CLI) | payer MEDICARE, MEDICAID ==
[2020-07-31 18:35] LABS: CALCIUM 9.4 mg/dL (8.5-10.3); POTASSIUM 4.3 mmol/L (3.5-5.0)
== END 2020-07-31 23:59 | disposition home or self-care (01) ==
LOC: LAB.WCP 08:00
PROVIDERS: ATTEND Internal Medicine Cardiovascular Disease
DX: I48.20 Chronic atrial fibrillation, unspecified (principal); I10 Essential (primary) hypertension
CPT/HCPCS: 36415; 80048

== ENCOUNTER 2020-08-08 09:56 | Outpatient (CLI) | payer MEDICARE, MEDICAID | END 2020-08-08 09:57 | disposition critical access hospital (66) | LOC: EMS 09:56 | DX: R29.810 Facial weakness (principal); R47.81 Slurred speech; R29.91 Unspecified symptoms and signs involving the musculoskeletal system | CPT/HCPCS: A0425; A0429 ==

== ENCOUNTER 2020-08-08 10:17 | Emergency (ER) | payer MEDICARE, MEDICAID ==
--- NOTE | 2020-08-08 10:27 | ED Physician Documentation ---
History of Present Illness - Stated complaint Stated Complaint: CODE STROKE - Additonal information Additional information: 75-year-old woman with past medical history of high blood pressure, heart failure, A. fib on Eliquis presents with sudden onset left facial droop, slurring of speech, and left upper extremity weakness at 915 this morning. Resting normal was at 915. Upon EMS arrival her symptoms resolved at 10:02 AM. She is asymptomatic in the emergency department with NIHSS of 0. Review of Systems Ten Systems: 10 systems reviewed and negative Constitutional: denies: Fever, Chills Eyes: denies: Loss of vision Neurologic: reports: Focal weakness, Difficulty speaking PD PAST MEDICAL HISTORY - Past Medical History Cardiovascular: Congestive heart failure, Atrial fibrillation Respiratory: Pneumonia Endocrine/Autoimmune: None GI: Hiatal hernia, Chronic constipation, Other : Incontinence HEENT: Chronic vision loss, Other Psych: None Musculoskeletal: Osteoarthritis, Osteoporosis - Past Surgical History Past Surgical History: Yes General: Hiatal hernia repair Ortho: Other - Present Medications Home Medications: Ambulatory Orders Medication Instructions Recorded Confirmed Calcium Carbonate/Vitamin D3 600 mg PO QDDINNER 07/24/15 03/24/18 [Calcium 600-Vit D3 800 Tablet] Furosemide 40 mg PO 0800 07/24/15 03/24/18 Pantoprazole Sodium 40 mg PO QDAC 07/24/15 03/24/18 Multivitamin [Multivitamins] 1 cap PO DAILY 05/03/16 03/24/18 Potassium Chloride 40 mg PO 1700 05/03/16 03/24/18 lisinopriL [Lisinopril] 2.5 mg PO 1600 05/03/16 03/24/18 Furosemide 20 mg PO 1600 07/10/17 03/24/18 L.acid/L.casei/B.bif/B.rony/Fos 1 cap PO DAILY 03/24/18 03/24/18 [Probiotic Blend Capsule] Metoprolol Succinate [Toprol Xl] 12.5 mg PO BIDWM #30 tablet 03/25/18 Wheat Dextrin [Benefiber] 1 each PO DAILY #30 packet 03/26/18 cephALEXin [Keflex] 500 mg PO TID #15 capsule 02/29/20 - Allergies Allergies/Adverse Reactions: Allergies Allergy/AdvReac Type Severity Reaction Status Date / Time No Known Drug Allergies Allergy Verified 08/08/20 10:50 - Social History Does the pt smoke?: No Smoking Status: Never smoker Does the pt drink ETOH?: No Does the pt have substance abuse?: No - Immunizations Immunizations are current?: Yes Immunizations: TDAP current <10years - POLST Patient has POLST: Yes POLST Status: Full Code PD ED PE NORMAL - Vitals Vital signs reviewed: Yes - General General: Alert and oriented X 3, No acute distress, Well developed/nourished - HEENT HEENT: Atraumatic, PERRL, EOMI - Neck Neck: Supple, no meningeal sign - Cardiac Cardiac: Other (irregular rate, regular rhythm) - Respiratory Respiratory: No respiratory distress, Clear bilaterally - Abdomen Abdomen: Non tender, Non distended - Derm Derm: Normal color, Warm and dry - Neuro Neuro: Alert and oriented X 3, hostage negotiator 2-12 intact, No motor deficit, No sensory deficit, Normal speech, Other (NIHSS 0) - Psych Psych: Normal mood, Normal affect Results - Vitals Vitals: Vital Signs - 24 hr 08/08/20 08/08/20 08/08/20 10:20 10:52 11:26 Temperature 36.4 C L Heart Rate 74 72 62 Respiratory 20 16 16 Rate Blood Pressure 146/79 H 146/79 H 146/79 H O2 Saturation 100 100 97 08/08/20 08/08/20 12:30 15:27 Temperature Heart Rate 59 L 80 Respiratory 11 L 16 Rate Blood Pressure 138/65 H 110/50 L O2 Saturation 97 95 Oxygen O2 Source Room air - Labs Labs: Laboratory Tests 08/08/20 08/08/20 08/08/20 11:40 12:15 12:15 WBC 3.4 L RBC 4.36 Hgb 13.5 Hct 43.4 MCV 99.5 H MCH 31.0 MCHC 31.1 L RDW 12.5 Plt Count 192 MPV 9.2 Neut # (Auto) 2.2 Lymph # (Auto) 0.7 L Geary # (Auto) 0.3 Eos # (Auto) 0.1 Baso # (Auto) 0.0 Absolute Nucleated RBC 0.00 Nucleated RBC % 0.0 PT 14.5 H INR 1.3 H APTT 30.9 Sodium Potassium Chloride Carbon Dioxide Anion Gap BUN Creatinine Estimated GFR (MDRD) Glucose Calcium Total Bilirubin AST ALT Alkaline Phosphatase Troponin I High Sens Total Protein Albumin Globulin Albumin/Globulin Ratio Lipase Nasal Adenovirus (PCR) NOT DETECTED Nasal B. parapertussis DNA (PCR) NOT DETECTED Nasal Coronavir 229E PCR NOT DETECTED Nasal Coronavir HKU1 PCR NOT DETECTED Nasal Coronavir NL63 PCR NOT DETECTED Nasal Coronavir OC43 PCR NOT DETECTED Nasal Enterovir/Rhinovir PCR NOT DETECTED Nasal Influenza B PCR NOT DETECTED Nasal Influenza A PCR NOT DETECTED Nasal Parainfluen 1 PCR NOT DETECTED Nasal Parainfluen 2 PCR NOT DETECTED Nasal Parainfluen 3 PCR NOT DETECTED Nasal Parainfluen 4 PCR NOT DETECTED Nasal RSV (PCR) NOT DETECTED Nasal B.pertussis DNA PCR NOT DETECTED Nasal C.pneumoniae (PCR) NOT DETECTED [place] Human Metapneumo PCR NOT DETECTED Nasal M.pneumoniae (PCR) NOT DETECTED Nasal SARS-CoV-2 (PCR) NOT DETECTED 08/08/20 08/08/20 12:15 12:15 WBC RBC Hgb Hct MCV MCH MCHC RDW Plt Count MPV Neut # (Auto) Lymph # (Auto) Geary # (Auto) Eos # (Auto) Baso # (Auto) Absolute Nucleated RBC Nucleated RBC % PT INR APTT Sodium 141 Potassium 3.8 Chloride 102 Carbon Dioxide 30 Anion Gap 9.0 BUN 14 Creatinine 0.8 Estimated GFR (MDRD) 70 L Glucose 98 Calcium 9.5 Total Bilirubin 0.9 AST 35 ALT 24 Alkaline Phosphatase 92 Troponin I High Sens 11.0 Total Protein 7.6 Albumin 4.0 Globulin 3.6 Albumin/Globulin Ratio 1.1 Lipase 20 L Nasal Adenovirus (PCR) Nasal B. parapertussis DNA (PCR) Nasal Coronavir 229E PCR Nasal Coronavir HKU1 PCR Nasal Coronavir NL63 PCR Nasal Coronavir OC43 PCR Nasal Enterovir/Rhinovir PCR Nasal Influenza B PCR Nasal Influenza A PCR Nasal Parainfluen 1 PCR Nasal Parainfluen 2 PCR Nasal Parainfluen 3 PCR Nasal Parainfluen 4 PCR Nasal RSV (PCR) Nasal B.pertussis DNA PCR Nasal C.pneumoniae (PCR) [place] Human Metapneumo PCR Nasal M.pneumoniae (PCR) Nasal SARS-CoV-2 (PCR) PD MEDICAL DECISION MAKING - ED course ED course: 75-year-old woman presents with apparent TIA. Will obtain CT Noncon of the head and CT angiogram and likely transfer for TIA work-up. d/w our hospitalist Dr. Cain - because do not have MRI or echo tomorrow she will need to be transferred. d/w Dr. Mays, neurologist at [facility] who accepts for transfer. Patient will go to [facility] or [facility]. d/w Dr. Gay, accepting hospitalist at [facility]. they will call us back to confirm which bed. Departure - Departure Disposition: 02 Transfer Acute Care Hosp Clinical Impression: TIA (transient ischemic attack)
[2020-08-08] MEDS ORDERED: IOPAMIDOL-300 100 ML VIAL ONE (10:53)
[2020-08-08 12:25] LABS: BASOPHILS % (AUTO) 0.9 %; EOSINOPHILS # (AUTO) 0.1 10^3/uL (0.0-0.7); EOSINOPHILS % (AUTO) 2.7 %; HCT - HEMATOCRIT 43.4 % (37.0-47.0); HGB - HEMOGLOBIN 13.5 g/dL (12.0-16.0); LYMPHOCYTES # (AUTO) 0.7 10^3/uL (1.5-3.5); MEAN CORPUSCULAR HGB CONC 31.1 g/dL (32.0-36.0); MEAN CORPUSCULAR VOLUME 99.5 fL (81.0-99.0); MEAN PLATELET VOLUME 9.2 fL (7.9-10.8); MONOCYTES # (AUTO) 0.3 10^3/uL (0.0-1.0); MONOCYTES % (AUTO) 8.6 %; NEUTROPHILS # (AUTO) 2.2 10^3/uL (1.5-6.6); NEUTROPHILS % (AUTO) 65.8 %; PLT - PLATELET COUNT 192 10^3/uL (130-450); RED BLOOD COUNT 4.36 10^6/uL (4.20-5.40); RED CELL DISTRIBUTION WIDTH 12.5 % (12.0-15.0); WHITE BLOOD COUNT 3.4 x10^3/uL (4.8-10.8)
[2020-08-08 12:39] LABS: INR 1.3 (0.8-1.2); PT - PROTHROMBIN TIME 14.5 secs (9.9-12.6)
[2020-08-08 12:45] LABS: ALBUMIN/GLOBULIN RATIO 1.1 (1.0-2.2); BILIRUBIN,TOTAL 0.9 mg/dL (0.2-1.0); CALCIUM 9.5 mg/dL (8.5-10.3); CREATININE 0.8 mg/dL (0.4-1.0); POTASSIUM 3.8 mmol/L (3.5-5.0); TOTAL PROTEIN 7.6 g/dL (6.7-8.2)
[2020-08-08 12:46] LABS: PARTIAL THROMBOPLASTIN TIME 30.9 secs (24.9-33.3)
[2020-08-08] MEDS ORDERED: IOPAMIDOL-300 100 ML VIAL IVP ONE (13:07)
--- NOTE | 2020-08-08 13:15 | CT Report ---
PROCEDURE: ANGIO HEAD W/WO INDICATIONS: TIA CONTRAST: IV CONTRAST: Isovue 300 ml: 80 PO CONTRAST: *NO PO CONTRAST TECHNIQUE: Precontrast 4.5 mm thick angled axial sections acquired from the foramen magnum to the vertex. Afte r the administration of intravenous contrast, 1 mm thick sections acquired through the [place] of [place] is. Postcontrast 4.5 mm thick sections then re-acquired from the foramen magnum to the vertex. 3-di mensional zheiytl-oejlshwiy-ojolhpsqvq (MIP) and/or volume rendering reformats were acquired of the c entral intracranial vasculature. For radiation dose reduction, the following was used: automated ex posure control, adjustment of mA and/or kV according to patient size. COMPARISON: Correlation is made with prior head CT, 05/27/2020. Correlation is also made with [facility], 08/08/[facility]. FINDINGS: Image quality: Excellent. Anterior circulation: Intracranial internal carotid arteries are normal in size and flow. The flow within the paired anterior cerebral arteries is normal and symmetric. The flow within the middle cer ebral arteries is normal and symmetric. The anterior communicating artery is faintly seen. No aneur ysms are seen. Posterior circulation: Visualized portions of the vertebral arteries demonstrate normal caliber, and join to form a normal appearing basilar artery. Flow within the posterior cerebral arteries is norm al and symmetric. No aneurysms are seen. CSF spaces: Ventricles are normal in size and shape. Basal cisterns are patent. No extra-axial flu id collections. Brain: No midline shift. No intracranial bleeds or masses. Fields-white matter interface appears int act. Skull and face: Calvarium and facial bones appear intact, without suspicious lesions. Sinuses: Visualized sinuses and mastoids are clear. IMPRESSION: No significant intracranial abnormality is seen. No significant intracranial arterial abnormalities are seen. No masses or abnormal enhancement can be seen. Reviewed by: Jonnie Kohler MD on 08/08/2020 12:14 PM CHELLE Approved by: Jonnie Kohler MD on 08/08/2020 12:14 PM CHELLE Station ID: [id number]
[2020-08-08 13:19] LABS: B. PARAPERTUSSIS- RESP PCR PAN NOT DETECTED; B. PERTUSSIS- RESP PCR PANEL NOT DETECTED; C. PNEUMONIAE- RESP PCR PANEL NOT DETECTED; CORONAVIRUS 229E-RESP PCR NOT DETECTED; CORONAVIRUS HKU1-RESP PCR NOT DETECTED; CORONAVIRUS NL63-RESP PCR NOT DETECTED; CORONAVIRUS OC43-RESP PCR NOT DETECTED; HUMAN METAPNEUMOVIRUS NOT DETECTED; INFLUENZA A- RESP PCR PANEL NOT DETECTED; INFLUENZA B - RESP PCR PANEL NOT DETECTED; M. PNEUMONIAE- RESP PCR PANEL NOT DETECTED; PARAINFLUENZA VIRUS 1 NOT DETECTED; PARAINFLUENZA VIRUS 2 NOT DETECTED; PARAINFLUENZA VIRUS 3 NOT DETECTED; PARAINFLUENZA VIRUS 4 NOT DETECTED; RHINOVIRUS/ENTEROVIRUS NOT DETECTED; RSV- RESP PCR PANEL NOT DETECTED; SARS-CoV-2 -RESP PCR PANEL NOT DETECTED
--- NOTE | 2020-08-08 13:19 | CT Report ---
PROCEDURE: ANGIO NECK W INDICATIONS: tia CONTRAST: IV CONTRAST: Isovue 300 ml: 80 PO CONTRAST: *NO PO CONTRAST TECHNIQUE: After the administration of intravenous contrast, 1.5 mm axial sections acquired from the aortic arch to the [place] of [place]. Coronal 3-D maximum intensity projection (MIP) and/or volume rendering ref ormats were then performed. For radiation dose reduction, the following was used: automated exposur e control, adjustment of mA and/or kV according to patient size. COMPARISON: Correlation is made with the accompanying head CT angiogram, 08/08/2020. Correlation is a lso made with prior chest CT, 10/03/2015 FINDINGS: Image quality: Excellent. Carotid system: The great vessels demonstrate a conventional anatomy as they arise from the aortic a rch. The origins of the common carotid arteries appear patent. The common carotid arteries demonstr ate normal calibers and courses. The bifurcation regions appear normal bilaterally. The internal ca rotid arteries demonstrate normal caliber. The internal carotid arteries are tortuous. Posterior circulation: The origins of the vertebral arteries appear patent. The more superior porti ons of the vertebral arteries demonstrate normal course and caliber. They join to form a normal appe aring basilar artery. Soft tissues: Visualized neck soft tissues demonstrate no suspicious abnormalities. The thyroid is prominent in size, particularly on the left side. Bones: No suspicious bony lesions. Visualized cervical spine appears normally aligned. Cervical s pine degenerative changes are seen, with moderate to severe disc space narrowing at C5-C6, with moder ate disc space narrowing at C3-C4 and C6-C7. Focal degenerative change can also be seen involving the C1-C2 interface anteriorly. Milder degenerative changes are seen elsewhere. IMPRESSION: No hemodynamically significant stenosis can be seen within the arteries of the neck. Incidental note is made of: Tortuous internal carotid arteries Enlarged thyroid, which is similar to 2016 Cervical spine degenerative change The estimate of stenosis included in the report of the imaging study was calculated using the NASCET method Reviewed by: Jonnie Kohler MD on 08/08/2020 12:18 PM AKDT Approved by: Jonnie Kohler MD on 08/08/2020 12:18 PM AKDT Station ID: [id number]
[2020-08-08] MEDS ORDERED: SODIUM CHLORIDE 0.9% 500 ML IV STA (13:48)
[2020-08-08 19:37] VITALS: BP 108/66
== END 2020-08-08 19:38 | disposition short-term general hospital (02) ==
LOC: EDUNIT# → ED 10:17
DX: G45.9 Transient cerebral ischemic attack, unspecified (principal); Z20.822 Contact with and (suspected) exposure to COVID-19; Z79.01 Long term (current) use of anticoagulants; I48.91 Unspecified atrial fibrillation; I11.0 Hypertensive heart disease with heart failure; I50.9 Heart failure, unspecified
CPT/HCPCS: 36415; 70496; 70498; 80053; 83690; 84484; 85025; 85610; 85730; 87631; 93005; 99283; 99285; Q9967; 0202U

== ENCOUNTER 2020-12-18 08:00 | Outpatient (CLI) | payer MEDICARE, MEDICAID ==
[2020-12-18 12:46] LABS: BASOPHILS % (AUTO) 1.5 %; EOSINOPHILS # (AUTO) 0.1 10^3/uL (0.0-0.7); HCT - HEMATOCRIT 41.4 % (37.0-47.0); HGB - HEMOGLOBIN 13.4 g/dL (12.0-16.0); LYMPHOCYTES # (AUTO) 0.8 10^3/uL (1.5-3.5); LYMPHOCYTES % (AUTO) 28.4 %; MEAN CORPUSCULAR HEMOGLOBIN 32.1 pg (27.0-31.0); MEAN CORPUSCULAR HGB CONC 32.4 g/dL (32.0-36.0); MEAN CORPUSCULAR VOLUME 99.3 fL (81.0-99.0); MEAN PLATELET VOLUME 9.5 fL (7.9-10.8); MONOCYTES # (AUTO) 0.4 10^3/uL (0.0-1.0); NEUTROPHILS # (AUTO) 1.4 10^3/uL (1.5-6.6); NEUTROPHILS % (AUTO) 53.1 %; PLT - PLATELET COUNT 171 10^3/uL (130-450); RED BLOOD COUNT 4.17 10^6/uL (4.20-5.40); RED CELL DISTRIBUTION WIDTH 12.1 % (12.0-15.0); WHITE BLOOD COUNT 2.7 x10^3/uL (4.8-10.8)
[2020-12-18 12:51] LABS: SLIDE REVIEW? Indicated
[2020-12-18 13:20] LABS: ALBUMIN 4.1 g/dL (3.2-5.5); ALBUMIN/GLOBULIN RATIO 1.1 (1.0-2.2); ALKALINE PHOSPHATASE 71 IU/L (42-121); ALT ALANINE AMINOTRANSFERASE 19 IU/L (10-60); AST ASPARTATE AMINOTRANSFERASE 30 IU/L (10-42); BILIRUBIN,TOTAL 1.1 mg/dL (0.2-1.0); BUN - BLOOD UREA NITROGEN 12 mg/dL (6-20); CALCIUM 9.4 mg/dL (8.5-10.3); CARBON DIOXIDE - CO2 29 mmol/L (21-32); CHLORIDE 94 mmol/L (101-111); CHOL/HDL RATIO 2.4 (<4.4); CHOLESTEROL 127 mg/dL; GFR - MDRD 54 (>89); GLUCOSE 97 mg/dL (70-100); HDL CHOLESTEROL 53 mg/dL; LDL CHOLESTEROL,CALCULATED 63 mg/dL; LDL/HDL RATIO 1.2 (<4.4); POTASSIUM 4.1 mmol/L (3.5-5.0); SODIUM 133 mmol/L (135-145); TOTAL PROTEIN 7.7 g/dL (6.7-8.2); TRIGLYCERIDES 55 mg/dL; VLDL CHOLESTEROL 11 mg/dL
[2020-12-18 13:44] LABS: ESTIMATED AVERAGE GLUCOSE 117 mg/dL (70-100); HEMOGLOBIN A1c% 5.7 % (4.27-6.07)
[2020-12-18 14:25] LABS: PLATELET ESTIMATE, MANUAL NORMAL (130-450,000) (NORMAL); PLATELET MORPHOLOGY NORMAL APPEARANCE (NORMAL); RBC MORPHOLOGY (MULTIPLE) NORMAL APPEARANCE (NORMAL); WBC MORPHOLOGY (MULTIPLE) NORMAL APPEARANCE (NORMAL)
== END 2020-12-18 23:59 | disposition home or self-care (01) ==
LOC: LAB.WCP 08:00
PROVIDERS: ATTEND Physician Assistant Medical
DX: D64.9 Anemia, unspecified (principal); R73.9 Hyperglycemia, unspecified; I50.9 Heart failure, unspecified
CPT/HCPCS: 36415; 80053; 80061; 83036; 83721; 85025

== ENCOUNTER 2020-12-25 08:00 | Outpatient (CLI) | payer MEDICARE, MEDICAID ==
[2020-12-25 11:59] LABS: BASOPHILS % (AUTO) 1.3 %; EOSINOPHILS # (AUTO) 0.1 10^3/uL (0.0-0.7); EOSINOPHILS % (AUTO) 3.4 %; HCT - HEMATOCRIT 41.9 % (37.0-47.0); HGB - HEMOGLOBIN 13.2 g/dL (12.0-16.0); LYMPHOCYTES # (AUTO) 0.8 10^3/uL (1.5-3.5); LYMPHOCYTES % (AUTO) 32.9 %; MEAN CORPUSCULAR HEMOGLOBIN 31.7 pg (27.0-31.0); MEAN CORPUSCULAR HGB CONC 31.5 g/dL (32.0-36.0); MEAN CORPUSCULAR VOLUME 100.7 fL (81.0-99.0); MEAN PLATELET VOLUME 9.7 fL (7.9-10.8); MONOCYTES # (AUTO) 0.4 10^3/uL (0.0-1.0); MONOCYTES % (AUTO) 17.3 %; NEUTROPHILS # (AUTO) 1.1 10^3/uL (1.5-6.6); NEUTROPHILS % (AUTO) 45.1 %; PLT - PLATELET COUNT 167 10^3/uL (130-450); RED BLOOD COUNT 4.16 10^6/uL (4.20-5.40); RED CELL DISTRIBUTION WIDTH 12.2 % (12.0-15.0); WHITE BLOOD COUNT 2.4 x10^3/uL (4.8-10.8)
[2020-12-25 12:21] LABS: PLATELET ESTIMATE, MANUAL NORMAL (130-450,000) (NORMAL); PLATELET MORPHOLOGY NORMAL APPEARANCE (NORMAL); RBC MORPHOLOGY (MULTIPLE) NORMAL APPEARANCE (NORMAL)
== END 2020-12-25 23:59 | disposition home or self-care (01) ==
LOC: LAB.WCP 08:00
PROVIDERS: ATTEND Physician Assistant Medical
DX: D72.819 Decreased white blood cell count, unspecified (principal); R06.02 Shortness of breath; I50.30 Unspecified diastolic (congestive) heart failure
CPT/HCPCS: 36415; 83880; 85025

== ENCOUNTER 2020-12-31 08:00 | Outpatient (CLI) | payer MEDICARE, MEDICAID ==
[2020-12-31 18:25] LABS: CALCIUM 9.4 mg/dL (8.5-10.3)
== END 2020-12-31 23:59 | disposition home or self-care (01) ==
LOC: LAB.WCP 08:00
PROVIDERS: ATTEND Internal Medicine Cardiovascular Disease
DX: I50.30 Unspecified diastolic (congestive) heart failure (principal); R06.02 Shortness of breath
CPT/HCPCS: 36415; 80048

== ENCOUNTER 2021-01-14 08:49 | Outpatient (CLI) | payer MEDICARE, MEDICAID ==
[2021-01-14] MEDS ORDERED: IOVERSOL 320 50 ML VIAL ONE (09:00)
[2021-01-14] MEDS ORDERED: IOVERSOL 320 100 ML VIAL IVP ONE ×2 (09:00→14:58)
--- NOTE | 2021-01-14 12:26 | XRAY Report ---
PROCEDURE: Foot 3 View LT INDICATIONS: PERIPHERAL NEUROPATHY, ABDOMINAL PAIN TECHNIQUE: 3 views of the foot were acquired. COMPARISON: None FINDINGS: Bones: No fractures or dislocations. No suspicious bony lesions. Calcaneal spur is present. Mild s cattered IP degenerative narrowing, moderate the first MTP joint. There is angulation at the MTP as w ell as TMT joints. No erosions. Soft tissues: No tibiotalar joint effusion. Achilles tendon appears normal. IMPRESSION: Degenerative changes as above. Reviewed by: Kathy Lopez MD on 01/14/2021 12:25 PM PDT Approved by: Kathy Lopez MD on 01/14/2021 12:25 PM PDT Station ID: [id number]
--- NOTE | 2021-01-14 13:09 | CT Report ---
PROCEDURE: Abdomen/Pelvis W INDICATIONS: ABDOMINAL PAIN CONTRAST: IV CONTRAST: Optiray 320 ml: 100 PO CONTRAST: Optiray 320 ml50 TECHNIQUE: After the administration of oral and IV contrast, 5 mm thick sections acquired from the diaphragms to the symphysis. 5 mm thick coronal and sagittal reformats were acquired. For radiation dose reducti on, the following was used: automated exposure control, adjustment of mA and/or kV according to stuart ent size. COMPARISON: CT chest 05/27/2020, 05/26/2017 FINDINGS: Image quality: Excellent. ABDOMEN: Lung bases: There is an appearance of patchy opacity within the right base. Heart size is mildly prom inent. Solid organs: Liver is enlarged with steatosis. Spleen is unremarkable. Gallbladder demonstrates de pendent calcifications, previously present. No wall thickening Biliary system is non dilated. Pancr eas enhances normally. No adrenal nodules. Kidneys demonstrate normal size and enhancement, without hydronephrosis. Peritoneum and bowel: Bowel loops demonstrate normal wall thickness and caliber. Scattered colonic d iverticula are present without inflammatory change. No free fluid or air. There is a large hiatal h ernia including portion of the colon with mass effect in the right lower lobe. Nodes and vessels: No retroperitoneal or mesenteric adenopathy by size criteria. Aorta and inferior vena cava are normal in size. Miscellaneous: No ventral hernias. PELVIS: Genitourinary: Bladder wall thickness is normal. Miscellaneous: No inguinal hernias or adenopathy. Bones: No suspicious bony lesions. No acute vertebral body compression fractures. Unchanged superi or endplate deformity at T12. IMPRESSION: 1. Persistent appearance of large hiatal hernia including: Extending into the right lower lobe with m ild mass effect and adjacent atelectasis. It is overall unchanged. 2. Unchanged cholelithiasis without imaging evidence of cholecystitis. Reviewed by: Kathy Lopez MD on 01/14/2021 1:07 PM PDT Approved by: Kathy Lopez MD on 01/14/2021 1:07 PM PDT Station ID: [id number]
[2021-01-14] MEDS ORDERED: IOVERSOL 320 50 ML VIAL PO ONE (14:58)
== END 2021-01-14 08:50 | disposition home or self-care (01) ==
LOC: DI 08:49
PROVIDERS: ATTEND Physician Assistant Medical
DX: R10.84 Generalized abdominal pain (principal); G60.9 Hereditary and idiopathic neuropathy, unspecified; K44.9 Diaphragmatic hernia without obstruction or gangrene; J98.11 Atelectasis; K80.20 Calculus of gallbladder without cholecystitis without obstruction; M77.32 Calcaneal spur, left foot; M19.072 Primary osteoarthritis, left ankle and foot
CPT/HCPCS: 73630; 74177; Q9967

== ENCOUNTER 2021-02-26 08:00 | Outpatient (CLI) | payer MEDICARE, MEDICAID ==
[2021-02-26 12:47] LABS: BASOPHILS % (AUTO) 0.4 %; EOSINOPHILS # (AUTO) 0.1 10^3/uL (0.0-0.7); EOSINOPHILS % (AUTO) 0.7 %; HCT - HEMATOCRIT 40.9 % (37.0-47.0); HGB - HEMOGLOBIN 13.4 g/dL (12.0-16.0); LYMPHOCYTES # (AUTO) 0.8 10^3/uL (1.5-3.5); LYMPHOCYTES % (AUTO) 11.3 %; MEAN CORPUSCULAR HEMOGLOBIN 33.1 pg (27.0-31.0); MEAN CORPUSCULAR HGB CONC 32.8 g/dL (32.0-36.0); MEAN PLATELET VOLUME 10.3 fL (7.9-10.8); MONOCYTES # (AUTO) 0.8 10^3/uL (0.0-1.0); MONOCYTES % (AUTO) 10.9 %; NEUTROPHILS # (AUTO) 5.3 10^3/uL (1.5-6.6); NEUTROPHILS % (AUTO) 76.4 %; PLT - PLATELET COUNT 158 10^3/uL (130-450); RED BLOOD COUNT 4.05 10^6/uL (4.20-5.40)
== END 2021-02-26 23:59 | disposition home or self-care (01) ==
LOC: LAB.WCP 08:00
PROVIDERS: ATTEND Physician Assistant Medical
DX: D64.9 Anemia, unspecified (principal)
CPT/HCPCS: 36415; 85025

== ENCOUNTER 2021-05-20 12:55 | Outpatient (CLI) | payer MEDICARE, MEDICAID ==
--- NOTE | 2021-05-20 14:27 | MRI Report ---
PROCEDURE: Brain W/O INDICATIONS: MEMORY CHANGE TECHNIQUE: Noncontrast axial T1 spin echo, axial T2 fast spin echo, sagittal and axial FLAIR, coronal T2 fast sp in echo, axial gradient echo, axial diffusion and ADC through the brain. COMPARISON: CT and CT angiogram of the head 08/08/2020 FINDINGS: Diffuse global cerebral volume loss which is overall moderate and appears to preferentially involve t he perisylvian and perirolandic regions as well as the precuneus. There also appears to be disproport ionate involvement of the hippocampal formations bilaterally. Mild to moderate chronic microvascular ischemic changes. No restricted diffusion to indicate recent i schemia. The major intracranial vascular flow-related signal voids are maintained. No abnormal intrac ranial susceptibility. No mass effect or midline shift. No abnormal extra axial fluid collection. Pat ent ventricular system and basilar cisterns. Orbital structures unremarkable other than bilateral int raocular lens replacements. Paranasal sinuses and mastoid air cells are clear. IMPRESSION: Diffuse global cerebral volume loss with predilection for the perisylvian and perirolandic regions al roddy with a precuneus and the hippocampal formations. In the appropriate clinical setting the findings are consistent with Alzheimer dementia. Gbgk-pi-fznamapi global cerebral volume loss. Reviewed by: Gerald Joshi MD on 05/20/2021 2:26 PM PST Approved by: Gerald Joshi MD on 05/20/2021 2:26 PM PST Station ID: [id number]
== END 2021-05-20 12:56 | disposition home or self-care (01) ==
LOC: DI 12:55
PROVIDERS: ATTEND Psychiatry & Neurology Neurology
DX: R41.3 Other amnesia (principal); G31.89 Other specified degenerative diseases of nervous system; G31.9 Degenerative disease of nervous system, unspecified

== ENCOUNTER 2021-05-25 08:41 | Outpatient (CLI) | payer MEDICARE, MEDICAID ==
[2021-05-25 13:22] LABS: THYROID STIMULATING HORMONE 2.98 uIU/mL (0.34-5.60)
[2021-05-25 13:43] LABS: ESTIMATED AVERAGE GLUCOSE 114 mg/dL (70-100); HEMOGLOBIN A1c% 5.6 % (4.27-6.07)
== END 2021-05-25 08:42 | disposition home or self-care (01) ==
LOC: LAB.N 08:41
PROVIDERS: ATTEND Psychiatry & Neurology Neurology
DX: R41.3 Other amnesia (principal); R79.9 Abnormal finding of blood chemistry, unspecified; M81.0 Age-related osteoporosis without current pathological fracture
CPT/HCPCS: 36415; 82306; 82607; 83036; 84443; 86592

== ENCOUNTER 2021-06-03 19:57 | Outpatient (CLI) | payer MEDICARE, MEDICAID | END 2021-06-03 23:59 | disposition critical access hospital (66) | LOC: EMS 19:57 | DX: R06.02 Shortness of breath (principal); R07.89 Other chest pain | CPT/HCPCS: A0425; A0429 ==

== ENCOUNTER 2021-06-03 20:12 | Emergency (ER) | payer MEDICARE, MEDICAID ==
--- NOTE | 2021-06-03 20:34 | ED Physician Documentation ---
PD HPI DYSPNEA - Stated complaint Stated Complaint: SOA - Chief complaint Chief Complaint: Resp - History obtained from History obtained from: Patient - History of Present Illness Timing - onset: Today Timing - onset during: Light activity Timing - details: Gradual onset, Intermittant Improved by: Rest Worsened by: Exertion Associated symptoms: Chest pain / discomfort. No: Fever, Cough, Wheezing - Additional information Additional information: c/o dyspnea that started earlier tonight after eating and then while walking at home. She says she also had mild, vague chest pain radiating to left side of neck. She does not use oxygen at home. Review of Systems Constitutional: denies: Fever Cardiac: reports: Chest pain / pressure. denies: Palpitations, Pedal edema Respiratory: reports: Dyspnea. denies: Cough GI: reports: Reviewed and negative Musculoskeletal: reports: Reviewed and negative Neurologic: reports: Reviewed and negative PD PAST MEDICAL HISTORY - Past Medical History Cardiovascular: Congestive heart failure, Atrial fibrillation Respiratory: Pneumonia Endocrine/Autoimmune: None GI: Hiatal hernia, Chronic constipation, Other : Incontinence HEENT: Chronic vision loss, Other Psych: None Musculoskeletal: Osteoarthritis, Osteoporosis - Past Surgical History Past Surgical History: Yes General: Hiatal hernia repair Ortho: Other - Present Medications Home Medications: Ambulatory Orders Medication Instructions Recorded Confirmed Calcium Carbonate/Vitamin D3 600 mg PO QDDINNER 07/24/15 08/08/20 [Calcium 600-Vit D3 800 Tablet] Furosemide 40 mg PO 0800 07/24/15 08/08/20 Pantoprazole Sodium 40 mg PO QDAC 07/24/15 08/08/20 Multivitamin [Multivitamins] 1 cap PO DAILY 05/03/16 08/08/20 lisinopriL [Lisinopril] 2.5 mg PO 1600 05/03/16 08/08/20 Furosemide 20 mg PO 1600 07/10/17 08/08/20 L.acid/L.casei/B.bif/B.rony/Fos 1 cap PO DAILY 03/24/18 08/08/20 [Probiotic Blend Capsule] Metoprolol Succinate [Toprol Xl] 12.5 mg PO BIDWM #30 tablet 03/25/18 08/08/20 Wheat Dextrin [Benefiber] 1 each PO DAILY #30 packet 03/26/18 08/08/20 Apixaban [Eliquis] 2.5 mg PO DAILY 08/08/20 08/08/20 Potassium Chloride [Micro-K] 10 meq PO DAILY 08/08/20 08/08/20 - Allergies Allergies/Adverse Reactions: Allergies Allergy/AdvReac Type Severity Reaction Status Date / Time No Known Drug Allergies Allergy Verified 06/03/21 20:22 - Social History Does the pt smoke?: No Smoking Status: Never smoker Does the pt drink ETOH?: No Does the pt have substance abuse?: No - Immunizations Immunizations are current?: Yes Immunizations: TDAP current <10years - POLST Patient has POLST: Yes POLST Status: Full Code PD ED PE NORMAL - Vitals Vital signs reviewed: Yes - General General: No acute distress, Well developed/nourished, Other (oriented to self and place, not time. frequently tangential in conversation) - Respiratory Respiratory: No respiratory distress, Other (diminished breath sounds bilateral lower lung jaimes) PD ED PE EXPANDED - Cardiac Cardiac: Irregularly irregular, Murmur Present (2/6 cardiac base and along left sternal border) Results - Vitals Vitals: Oxygen O2 Source Room air Oxygen Flow Rate 2 - EKG (time done) No standard instances Rate: Rate (enter#) (71) Rhythm: Atrial fibrillation [place]: LAD Ischemia: Normal ST segments, T wave inversion (V2, flat V3) - Labs Labs: Laboratory Tests 06/03/21 06/03/21 06/03/21 21:06 21:06 21:06 WBC 4.3 L RBC 4.03 L Hgb 13.3 Hct 41.5 MCV 103.0 H MCH 33.0 H MCHC 32.0 RDW 12.4 Plt Count 179 MPV 9.0 Neut # (Auto) 2.8 Lymph # (Auto) 0.7 L Dukes # (Auto) 0.6 Eos # (Auto) 0.1 Baso # (Auto) 0.0 Absolute Nucleated RBC 0.00 Nucleated RBC % 0.0 Sodium 138 Potassium 4.1 Chloride 96 L Carbon Dioxide 33 H Anion Gap 9.0 BUN 14 Creatinine 1.0 Estimated GFR (MDRD) 54 L Glucose 108 H Calcium 9.0 Total Bilirubin 0.8 AST 35 ALT 23 Alkaline Phosphatase 75 Troponin I High Sens 10.9 B-Natriuretic Peptide Total Protein 7.8 Albumin 4.2 Globulin 3.6 Albumin/Globulin Ratio 1.2 Lipase 36 Nasal Adenovirus (PCR) Nasal B. parapertussis DNA (PCR) Nasal Coronavir 229E PCR Nasal Coronavir HKU1 PCR Nasal Coronavir NL63 PCR Nasal Coronavir OC43 PCR Nasal Enterovir/Rhinovir PCR Nasal Influenza B PCR Nasal Influenza A PCR Nasal Parainfluen 1 PCR Nasal Parainfluen 2 PCR Nasal Parainfluen 3 PCR Nasal Parainfluen 4 PCR Nasal RSV (PCR) Nasal B.pertussis DNA PCR Nasal C.pneumoniae (PCR) [place] Human Metapneumo PCR Nasal M.pneumoniae (PCR) Nasal SARS-CoV-2 (PCR) 06/03/21 06/03/21 21:06 22:54 WBC RBC Hgb Hct MCV MCH MCHC RDW Plt Count MPV Neut # (Auto) Lymph # (Auto) Dukes # (Auto) Eos # (Auto) Baso # (Auto) Absolute Nucleated RBC Nucleated RBC % Sodium Potassium Chloride Carbon Dioxide Anion Gap BUN Creatinine Estimated GFR (MDRD) Glucose Calcium Total Bilirubin AST ALT Alkaline Phosphatase Troponin I High Sens B-Natriuretic Peptide 226 H Total Protein Albumin Globulin Albumin/Globulin Ratio Lipase Nasal Adenovirus (PCR) NOT DETECTED Nasal B. parapertussis DNA (PCR) NOT DETECTED Nasal Coronavir 229E PCR NOT DETECTED Nasal Coronavir HKU1 PCR NOT DETECTED Nasal Coronavir NL63 PCR NOT DETECTED Nasal Coronavir OC43 PCR NOT DETECTED Nasal Enterovir/Rhinovir PCR NOT DETECTED Nasal Influenza B PCR NOT DETECTED Nasal Influenza A PCR NOT DETECTED Nasal Parainfluen 1 PCR NOT DETECTED Nasal Parainfluen 2 PCR NOT DETECTED Nasal Parainfluen 3 PCR NOT DETECTED Nasal Parainfluen 4 PCR NOT DETECTED Nasal RSV (PCR) NOT DETECTED Nasal B.pertussis DNA PCR NOT DETECTED Nasal C.pneumoniae (PCR) NOT DETECTED [place] Human Metapneumo PCR NOT DETECTED Nasal M.pneumoniae (PCR) NOT DETECTED Nasal SARS-CoV-2 (PCR) NOT DETECTED - Rads (name of study) chest xray Radiology: Prelim report reviewed, See rad report chest CT Radiology: Prelim report reviewed, See rad report PD MEDICAL DECISION MAKING - ED course Complexity details: reviewed old records, reviewed results, re-evaluated patient, considered differential, d/w patient ED course: patient is a challenging historian; often becomes tangential, and has difficulty providing clear timeframes and descriptors of symptoms. EKG without acute findings, unremarkable blood tests including normal hs-cTn; a mildly elevated BNP is noted (226). CXR shows extensive hiatal hernia comprised of stomach as well as bowel loops. This is not a new finding, and on a previous ED visit, it was surmised this could be the cause of her PALACIOS. She is in NAD at rest with adequate pulse ox, but noted to drop to upper 80s on room air when she stands and tries to take a few steps. This corrects rapidly with 2 liters NC oxygen. She is given IV lasix early in stay, but towards end of stay, due to the recurrence of her drop in saturation with standing, CT chest was performed; no PE noted and no acute/concerning/new findings noted. There is no evidence (testing, H+P) to suggest infectious process such as pneumonia, no PE on CT, and at this time EKG and normal hs-cTn do not support acute cardiac event. Given the extent of the hiatal hernia and the volume of the thoracic cavity it occupies, it is a likely cause of the dyspnea on exertion. At this time she would not benefit from hospitalization, but ideally would be able to meet with appropriate specialist to discuss options for repair of the hiatal hernia (or if this would even be recommended). Departure - Departure Disposition: 01 Home, Self Care Clinical Impression: Dyspnea Qualifiers: Dyspnea type: dyspnea on exertion Qualified Code(s): R06.00 - Dyspnea, unspecified Condition: Stable Instructions: ED Dyspnea Shortness of Breath Follow-Up: Larissa Steen PA-C [Primary Care Provider] - Discharge Date/Time: 06/04/21 07:08
[2021-06-03] MEDS ORDERED: FUROSEMIDE 20 MG/2 ML VIAL IVP STA (20:55)
[2021-06-03 21:13] LABS: BASOPHILS % (AUTO) 0.9 %; EOSINOPHILS # (AUTO) 0.1 10^3/uL (0.0-0.7); EOSINOPHILS % (AUTO) 3.3 %; HCT - HEMATOCRIT 41.5 % (37.0-47.0); HGB - HEMOGLOBIN 13.3 g/dL (12.0-16.0); LYMPHOCYTES # (AUTO) 0.7 10^3/uL (1.5-3.5); LYMPHOCYTES % (AUTO) 15.8 %; MONOCYTES # (AUTO) 0.6 10^3/uL (0.0-1.0); MONOCYTES % (AUTO) 14.6 %; NEUTROPHILS # (AUTO) 2.8 10^3/uL (1.5-6.6); NEUTROPHILS % (AUTO) 65.2 %; PLT - PLATELET COUNT 179 10^3/uL (130-450); RED BLOOD COUNT 4.03 10^6/uL (4.20-5.40); RED CELL DISTRIBUTION WIDTH 12.4 % (12.0-15.0); WHITE BLOOD COUNT 4.3 x10^3/uL (4.8-10.8)
[2021-06-03 21:38] LABS: ALBUMIN 4.2 g/dL (3.2-5.5); ALBUMIN/GLOBULIN RATIO 1.2 (1.0-2.2); BILIRUBIN,TOTAL 0.8 mg/dL (0.2-1.0); POTASSIUM 4.1 mmol/L (3.5-5.0); TOTAL PROTEIN 7.8 g/dL (6.7-8.2)
--- NOTE | 2021-06-03 21:55 | XRAY Report ---
PROCEDURE: Chest 2 View X-Ray INDICATIONS: dyspnea, chest pain TECHNIQUE: 2 view(s) of the chest. COMPARISON: Chest x-ray one view, 05/27/2020. CT chest with contrast, 05/27/2020. FINDINGS: Surgical changes and devices: None. Lungs and pleura: No pleural effusions or pneumothorax. Bibasilar opacities are most likely atelecta sis. Mediastinum: Mediastinal contours are normal. Heart size is normal. There is a huge hiatal hernia. Bones and chest wall: No suspicious bony abnormalities. Soft tissues appear unremarkable. IMPRESSION: 1. There is a large hiatal hernia compressing the thoracic contents. 2. Bibasilar opacities are most likely atelectasis. Superimposed pneumonia cannot be excluded. Reviewed by: Khanh Leyva MD on 06/03/2021 9:54 PM PST Approved by: Khanh Leyva MD on 06/03/2021 9:54 PM PST Station ID: [id number]
[2021-06-03 23:49] LABS: B. PARAPERTUSSIS- RESP PCR PAN NOT DETECTED; B. PERTUSSIS- RESP PCR PANEL NOT DETECTED; C. PNEUMONIAE- RESP PCR PANEL NOT DETECTED; CORONAVIRUS 229E-RESP PCR NOT DETECTED; CORONAVIRUS HKU1-RESP PCR NOT DETECTED; CORONAVIRUS NL63-RESP PCR NOT DETECTED; CORONAVIRUS OC43-RESP PCR NOT DETECTED; HUMAN METAPNEUMOVIRUS NOT DETECTED; INFLUENZA A- RESP PCR PANEL NOT DETECTED; INFLUENZA B - RESP PCR PANEL NOT DETECTED; M. PNEUMONIAE- RESP PCR PANEL NOT DETECTED; PARAINFLUENZA VIRUS 1 NOT DETECTED; PARAINFLUENZA VIRUS 2 NOT DETECTED; PARAINFLUENZA VIRUS 3 NOT DETECTED; PARAINFLUENZA VIRUS 4 NOT DETECTED; RHINOVIRUS/ENTEROVIRUS NOT DETECTED; RSV- RESP PCR PANEL NOT DETECTED; SARS-CoV-2 -RESP PCR PANEL NOT DETECTED
[2021-06-04] MEDS ORDERED: IOVERSOL 320 100 ML VIAL IVP ONE ×2 (03:50→04:27)
[2021-06-04 06:12] VITALS: BP 97/72
--- NOTE | 2021-06-04 22:24 | CT Report ---
PROCEDURE: CHEST W INDICATIONS: dyspnea CONTRAST: IV CONTRAST: Optiray 320 ml: 100 PO CONTRAST: *NO PO CONTRAST TECHNIQUE: After the administration of intravenous contrast, 1 mm axial images were acquired from the pulmonary apices through the posterior costophrenic angles. Axial 5 mm soft tissue kernel reconstructions were performed as well as 8 mm axial MIP and coronal and sagittal 5 mm reformations. For radiation dose reduction, the following was used: automated exposure control, adjustment of mA and/or kV according to patient size. COMPARISON: CT chest 05/27/2020. FINDINGS: Image quality: Excellent. Lungs and pleura: There is atelectasis of the majority of the right lower lobe and portions of the ri ght middle lobe adjacent to the large hiatal hernia. No acute consolidation. Mild mosaic attenuation is seen in the upper lobes bilaterally that may indicate small airways disease or subsegmental atelec tasis. No pleural effusions or pneumothorax. Central and peripheral airways are patent and normal in caliber. Mediastinum: There is biatrial enlargement of the heart. The main pulmonary artery is enlarged, measu ring 4.1 cm in diameter. No pericardial effusion. No mediastinal or hilar adenopathy by size criteri a. Thoracic aorta and central pulmonary arteries are normal in size. A large hiatal hernia is seen w ith the entirety of the stomach located above the diaphragm as well as a long segment of the transver se colon and peritoneum fat. No signs of bowel obstruction. Bones and chest wall: No suspicious bony lesions. Mild compression deformities of T2, T3 and T6 are seen, which are most likely chronic.. 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 Degenera tive changes are seen in the spine. No axillary or supraclavicular adenopathy by size criteria. The thyroid is mildly enlarged. Abdomen: Cholelithiasis. Visualized upper abdominal solid organs appear normal. Upper abdominal bow el loops are normal in caliber. IMPRESSION: 1.Large hiatal hernia resulting in atelectasis of the majority of the right lower lobe. No acute cons olidation. The stomach and transverse colon are located above the diaphragm without signs of bowel ob struction. 2.Enlarged main pulmonary artery measuring up to 4.1 cm, which can be seen in the setting of pulmonar y hypertension. 3.Biatrial enlargement. 4.Chronic cardiomegaly. 5.Cholelithiasis. There is no significant discrepancy when compared with the preliminary overnight report. Reviewed by: Bright Agee MD on 06/04/2021 10:22 PM PST Approved by: Bright Agee MD on 06/04/2021 10:22 PM PST Station ID: [id number]
== END 2021-06-04 07:08 | disposition home or self-care (01) ==
LOC: EDUNIT# → ED 20:12
DX: R06.09 Other forms of dyspnea (principal); K44.9 Diaphragmatic hernia without obstruction or gangrene; I48.91 Unspecified atrial fibrillation; Z79.01 Long term (current) use of anticoagulants; Z20.822 Contact with and (suspected) exposure to COVID-19
CPT/HCPCS: 36415; 71046; 71260; 80053; 83690; 83880; 84484; 85025; 87631; 93005; 96374; 99283; 99284; Q9967; 0202U

== ENCOUNTER 2021-09-11 10:50 | Outpatient (CLI) | payer MEDICARE, MEDICAID | END 2021-09-11 10:51 | disposition critical access hospital (66) | LOC: EMS 10:50 | DX: R53.1 Weakness (principal); R42 Dizziness and giddiness | CPT/HCPCS: A0425; A0429 ==

== ENCOUNTER 2021-09-11 11:06 | Emergency (ER) | payer MEDICARE, MEDICAID ==
--- NOTE | 2021-09-11 11:21 | ED Physician Documentation ---
PD HPI ALTERED MENTAL STATUS - Stated complaint Stated Complaint: GENERAL WEAKNESS - Chief complaint Chief Complaint: General - History obtained from History obtained from: Patient, Family (reported infro from daughter to EMS, general weakness progressive for couple of weeks.), EMS - History of Present Illness Timing - onset: How many days ago (patient with general weakness and somnolence over the past few days.), Other (The patient has had some general weakness and also some vertigo with standing and head movement over the past week or 2. However is now sleepy and more weak.) Timing - duration: Days (few) Timing - details: Gradual onset, Still present Quality / character: Confused, Other (general weakness and unable to stand on legs even with assistance today, So slumped to the floor. Did not apparently hit head.Daughter states the patient has been sleepier than baseline for the last several days. Had started meclizine for vertigo several days ago.). No: Hallucinating Associated symptoms: No: Fever, Headache Contributing factors: Recent med change (had Meclizine added few days ago for complaint of vertigo.) Basline status: Walker Similar symptoms before: Has not had sx before Recently seen: Clinic (this past week for dizziness and weakness. Rx Meclizine.) Review of Systems Constitutional: denies: Fever Nose: denies: Rhinorrhea / runny nose, Congestion Throat: denies: Sore throat Respiratory: denies: Cough GI: reports: Nausea (when feeling dizzy/vertigo). denies: Abdominal Pain, Vomiting, Diarrhea Skin: denies: Rash Musculoskeletal: denies: Back pain Neurologic: reports: Generalized weakness, Altered mental status (somnolent the past few days.). denies: Focal weakness Endocrine: denies: Weight loss PD PAST MEDICAL HISTORY - Past Medical History Cardiovascular: Congestive heart failure, Atrial fibrillation (chronic, rate controlled, on Eliquis. ) Respiratory: Pneumonia Endocrine/Autoimmune: None GI: Hiatal hernia, Chronic constipation, Other : Incontinence HEENT: Chronic vision loss, Other Psych: None Musculoskeletal: Osteoarthritis, Osteoporosis - Past Surgical History Past Surgical History: Yes General: Hiatal hernia repair Ortho: Other - Present Medications Home Medications: Ambulatory Orders Medication Instructions Recorded Confirmed Calcium Carbonate/Vitamin D3 600 mg PO QDDINNER 07/24/15 09/11/21 [Calcium 600-Vit D3 800 Tablet] Furosemide 40 mg PO 0800 07/24/15 09/11/21 Pantoprazole Sodium 40 mg PO BID 07/24/15 09/11/21 Multivitamin [Multivitamins] 1 cap PO DAILY 05/03/16 09/11/21 L.acid/L.casei/B.bif/B.rony/Fos 1 cap PO DAILY 03/24/18 09/11/21 [Probiotic Blend Capsule] Metoprolol Succinate [Toprol Xl] 12.5 mg PO BIDWM #30 tablet 03/25/18 09/11/21 Wheat Dextrin [Benefiber] 1 each PO DAILY #30 packet 03/26/18 09/11/21 Apixaban [Eliquis] 5 mg PO BID 08/08/20 09/11/21 Potassium Chloride [Micro-K] 20 meq PO DAILY 08/08/20 09/11/21 Alendronate [Fosamax] 70 mg PO UD 09/11/21 09/11/21 Escitalopram [Lexapro] 20 mg PO DAILY 09/11/21 09/11/21 Fesoterodine Fumarate [Toviaz] 4 mg PO DAILY 09/11/21 09/11/21 Meclizine HCl [Antivert] 25 mg PO Q6HR PRN 09/11/21 09/11/21 Ubidecarenone/Vit E Acet [Co Q-10 1 cap PO DAILY 09/11/21 09/11/21 100 mg Softgel] cephALEXin [Keflex] 500 mg PO TID #20 cap 09/11/21 - Allergies Allergies/Adverse Reactions: Allergies Allergy/AdvReac Type Severity Reaction Status Date / Time No Known Drug Allergies Allergy Verified 09/11/21 11:16 - Social History Does the pt smoke?: No Smoking Status: Never smoker Does the pt drink ETOH?: No Does the pt have substance abuse?: No - Immunizations Immunizations are current?: Yes Immunizations: TDAP current <10years - POLST Patient has POLST: Yes POLST Status: Full Code PD ED PE NORMAL - Vitals Vital signs reviewed: Yes - General General: No acute distress, Well developed/nourished. No: Alert and oriented X 3 (sleepy but easily rousable. Somewhat rambling answering of questions. ) - HEENT HEENT: Atraumatic, PERRL, EOMI (no nystagmus noted. ), Pharynx benign - Neck Neck: Supple, no meningeal sign, No adenopathy, No JVD - Cardiac Cardiac: No murmur. No: RRR (irrregular but rate controlled. ) - Respiratory Respiratory: No respiratory distress, Clear bilaterally - Abdomen Abdomen: Normal bowel sounds, Soft, Non tender, No organomegaly, Other (mild tenderness left lower abd without guarding nor percussion tenderness. ) - Female Female : Deferred - Rectal Rectal: Deferred - Back Back: No CVA TTP - Derm Derm: Normal color, Warm and dry, No rash - Extremities Extremities: Normal ROM s pain, No calf tenderness / cord, Other (1+ edema in both ankles, but not up legs. ) - Neuro Neuro: line inspector 2-12 intact, No motor deficit, No sensory deficit, Normal speech Eye Opening: To Voice Motor: Obeys Commands Verbal: Oriented GCS Score: 14 Results - Vitals Vitals: Vital Signs - 24 hr 09/11/21 09/11/21 09/11/21 11:11 13:57 14:44 Temperature 35.8 C L 36.6 C Heart Rate 71 68 71 Respiratory 16 14 16 Rate Blood Pressure 136/76 H 138/58 H 99/59 L O2 Saturation 93 95 100 09/11/21 15:24 Temperature Heart Rate 88 Respiratory 18 Rate Blood Pressure 116/72 O2 Saturation 98 Oxygen O2 Source Room air - Labs Labs: Laboratory Tests 09/11/21 09/11/21 09/11/21 11:28 11:28 11:28 WBC 3.5 L RBC 4.01 L Hgb 13.4 Hct 41.1 MCV 102.5 H MCH 33.4 H MCHC 32.6 RDW 12.8 Plt Count 147 MPV 9.2 Neut # (Auto) 2.2 Lymph # (Auto) 0.7 L Tift # (Auto) 0.4 Eos # (Auto) 0.2 Baso # (Auto) 0.0 Absolute Nucleated RBC 0.00 Nucleated RBC % 0.0 PT INR Sodium 137 Potassium 4.5 Chloride 98 L Carbon Dioxide 31 Anion Gap 8.0 BUN 16 Creatinine 1.0 Estimated GFR (MDRD) 54 L Glucose 96 Calcium 9.1 Magnesium 2.2 Total Bilirubin 0.8 AST 46 H ALT 32 Alkaline Phosphatase 81 Troponin I High Sens 11.7 B-Natriuretic Peptide Total Protein 7.6 Albumin 4.0 Globulin 3.6 Albumin/Globulin Ratio 1.1 Lipase 26 TSH Urine Color Urine Clarity Urine pH Ur Specific [place] Urine Protein Urine Glucose (UA) Urine Ketones Urine Occult Blood Urine Nitrite Urine Bilirubin Urine Urobilinogen Ur Leukocyte Esterase Urine RBC Urine WBC Ur Squamous Epith Cells Urine Bacteria Ur Microscopic Review Urine Culture Comments Nasal Adenovirus (PCR) Nasal B. parapertussis DNA (PCR) Nasal Coronavir 229E PCR Nasal Coronavir HKU1 PCR Nasal Coronavir NL63 PCR Nasal Coronavir OC43 PCR Nasal Enterovir/Rhinovir PCR Nasal Influenza B PCR Nasal Influenza A PCR Nasal Parainfluen 1 PCR Nasal Parainfluen 2 PCR Nasal Parainfluen 3 PCR Nasal Parainfluen 4 PCR Nasal RSV (PCR) Nasal B.pertussis DNA PCR Nasal C.pneumoniae (PCR) [place] Human Metapneumo PCR Nasal M.pneumoniae (PCR) Nasal SARS-CoV-2 (PCR) 09/11/21 09/11/21 09/11/21 11:28 11:28 11:37 WBC RBC Hgb Hct MCV MCH MCHC RDW Plt Count MPV Neut # (Auto) Lymph # (Auto) Tift # (Auto) Eos # (Auto) Baso # (Auto) Absolute Nucleated RBC Nucleated RBC % PT INR Sodium Potassium Chloride Carbon Dioxide Anion Gap BUN Creatinine Estimated GFR (MDRD) Glucose Calcium Magnesium Total Bilirubin AST ALT Alkaline Phosphatase Troponin I High Sens B-Natriuretic Peptide 275 H Total Protein Albumin Globulin Albumin/Globulin Ratio Lipase TSH 3.87 Urine Color Urine Clarity Urine pH Ur Specific [place] Urine Protein Urine Glucose (UA) Urine Ketones Urine Occult Blood Urine Nitrite Urine Bilirubin Urine Urobilinogen Ur Leukocyte Esterase Urine RBC Urine WBC Ur Squamous Epith Cells Urine Bacteria Ur Microscopic Review Urine Culture Comments Nasal Adenovirus (PCR) NOT DETECTED Nasal B. parapertussis DNA (PCR) NOT DETECTED Nasal Coronavir 229E PCR NOT DETECTED Nasal Coronavir HKU1 PCR NOT DETECTED Nasal Coronavir NL63 PCR NOT DETECTED Nasal Coronavir OC43 PCR NOT DETECTED Nasal Enterovir/Rhinovir PCR NOT DETECTED Nasal Influenza B PCR NOT DETECTED Nasal Influenza A PCR NOT DETECTED Nasal Parainfluen 1 PCR NOT DETECTED Nasal Parainfluen 2 PCR NOT DETECTED Nasal Parainfluen 3 PCR NOT DETECTED Nasal Parainfluen 4 PCR NOT DETECTED Nasal RSV (PCR) NOT DETECTED Nasal B.pertussis DNA PCR NOT DETECTED Nasal C.pneumoniae (PCR) NOT DETECTED [place] Human Metapneumo PCR NOT DETECTED Nasal M.pneumoniae (PCR) NOT DETECTED Nasal SARS-CoV-2 (PCR) NOT DETECTED 09/11/21 09/11/21 11:48 12:24 WBC RBC Hgb Hct MCV MCH MCHC RDW Plt Count MPV Neut # (Auto) Lymph # (Auto) Tift # (Auto) Eos # (Auto) Baso # (Auto) Absolute Nucleated RBC Nucleated RBC % PT 18.0 H INR 1.6 H Sodium Potassium Chloride Carbon Dioxide Anion Gap BUN Creatinine Estimated GFR (MDRD) Glucose Calcium Magnesium Total Bilirubin AST ALT Alkaline Phosphatase Troponin I High Sens B-Natriuretic Peptide Total Protein Albumin Globulin Albumin/Globulin Ratio Lipase TSH Urine Color YELLOW Urine Clarity HAZY Urine pH 7.5 Ur Specific [place] 1.015 Urine Protein NEGATIVE Urine Glucose (UA) NEGATIVE Urine Ketones NEGATIVE Urine Occult Blood TRACE-INTA Urine Nitrite NEGATIVE Urine Bilirubin NEGATIVE Urine Urobilinogen 0.2 (NORMAL) Ur Leukocyte Esterase LARGE H Urine RBC 0-5 Urine WBC 4-5 Ur Squamous Epith Cells FEW Squamous Urine Bacteria Few Ur Microscopic Review INDICATED Urine Culture Comments INDICATED Nasal Adenovirus (PCR) Nasal B. parapertussis DNA (PCR) Nasal Coronavir 229E PCR Nasal Coronavir HKU1 PCR Nasal Coronavir NL63 PCR Nasal Coronavir OC43 PCR Nasal Enterovir/Rhinovir PCR Nasal Influenza B PCR Nasal Influenza A PCR Nasal Parainfluen 1 PCR Nasal Parainfluen 2 PCR Nasal Parainfluen 3 PCR Nasal Parainfluen 4 PCR Nasal RSV (PCR) Nasal B.pertussis DNA PCR Nasal C.pneumoniae (PCR) [place] Human Metapneumo PCR Nasal M.pneumoniae (PCR) Nasal SARS-CoV-2 (PCR) - Rads (name of study) head CT Radiology: Prelim report reviewed (fall on Eliquis. No ICH. No acute process. ), See rad report chest xray Radiology: Prelim report reviewed (Large hiatal hernia with compression of the lower lung [place]. Some infiltrate in the right lower lung consider pneumonic.), See rad report abd/pelvic CT Radiology: Prelim report reviewed (Done without IV contrast due to lack of worldwide supply. No acute abnormalities noted. Incidental finding of a cystlike structure 2.3 cm LUQ versus loop of bowel. Recommend repeat short interval imaging nonemergently. ), See rad report PD MEDICAL DECISION MAKING - ED course Complexity details: reviewed results (Chest x-ray report has suggestion of right lower pneumonia. Urinalysis has suggestion of UTI. Can treat with cephalexin to cover both. Otherwise no other acute process.), re-evaluated patient (She is a bit more alert at this time. There is signs of possible pneumonia and likely UTI. We can treat with antibiotics for these. I think her sedation times with new prescription for meclizine so that is likely the cause of that symptom.), considered differential (The patient is conversant here. Perhaps slightly somnolent. Consideration for side effect from the meclizine recently prescribed. No nystagmus. Will check labs for electrolytes, also check for infection with chest x-ray and urine. She did fall on Eliquis so will get CT head.), d/w patient, d/w family (daughter) ED course: I did talk with her daughter about the incidental finding of a small cystlike structure in the left abdomen with suggestion for repeat imaging in a short interval (next 1-3 months). To follow-up up with her primary care about it. Departure - Departure Disposition: 01 Home, Self Care Clinical Impression: Generalized weakness, Infiltrate of right lung present on chest x-ray UTI (urinary tract infection) Qualifiers: Urinary tract infection type: acute cystitis Hematuria presence: without hematuria Qualified Code(s): N30.00 - Acute cystitis without hematuria AMS (altered mental status) Qualifiers: Altered mental status type: somnolence Qualified Code(s): R40.0 - Somnolence Condition: Stable Record reviewed to determine appropriate education?: Yes Follow-Up: Larissa Steen PA-C [Primary Care Provider] - Prescriptions: cephALEXin [Keflex] 500 mg PO TID #20 cap Comments: Some of the somnolence may relate to the meclizine which can cause sleepiness as a side effect. I would hold the meclizine for the next several days to week and see if more alert and less somnolent. Continue other usual medicines. The chest x-ray had a suggestion of a pneumonia on x-ray reading. There is also a suggestion of urinary tract infection. We can treat with cephalexin antibiotic that should cover both of these potential infections. Take it 3 times a day for the next week. Maintain good hydration. Recheck if not improving well over the next few days. I transmitted prescription to [facility] pharmacy in [place]. Discharge Date/Time: 09/11/21 15:32
[2021-09-11 11:34] LABS: BASOPHILS % (AUTO) 0.9 %; EOSINOPHILS # (AUTO) 0.2 10^3/uL (0.0-0.7); EOSINOPHILS % (AUTO) 4.6 %; HCT - HEMATOCRIT 41.1 % (37.0-47.0); HGB - HEMOGLOBIN 13.4 g/dL (12.0-16.0); LYMPHOCYTES # (AUTO) 0.7 10^3/uL (1.5-3.5); LYMPHOCYTES % (AUTO) 21.1 %; MEAN CORPUSCULAR HEMOGLOBIN 33.4 pg (27.0-31.0); MEAN CORPUSCULAR HGB CONC 32.6 g/dL (32.0-36.0); MEAN CORPUSCULAR VOLUME 102.5 fL (81.0-99.0); MEAN PLATELET VOLUME 9.2 fL (7.9-10.8); MONOCYTES # (AUTO) 0.4 10^3/uL (0.0-1.0); MONOCYTES % (AUTO) 11.7 %; NEUTROPHILS # (AUTO) 2.2 10^3/uL (1.5-6.6); NEUTROPHILS % (AUTO) 61.4 %; PLT - PLATELET COUNT 147 10^3/uL (130-450); RED BLOOD COUNT 4.01 10^6/uL (4.20-5.40); RED CELL DISTRIBUTION WIDTH 12.8 % (12.0-15.0); WHITE BLOOD COUNT 3.5 x10^3/uL (4.8-10.8)
[2021-09-11 11:54] LABS: ALBUMIN/GLOBULIN RATIO 1.1 (1.0-2.2); BILIRUBIN,TOTAL 0.8 mg/dL (0.2-1.0); CALCIUM 9.1 mg/dL (8.5-10.3); MAGNESIUM 2.2 mg/dL (1.7-2.8); POTASSIUM 4.5 mmol/L (3.5-5.0); TOTAL PROTEIN 7.6 g/dL (6.7-8.2)
--- NOTE | 2021-09-11 12:01 | XRAY Report ---
PROCEDURE: Chest 1 View X-Ray INDICATIONS: Chest Pain TECHNIQUE: One view of the chest was acquired. COMPARISON: Chest x-ray 06/03/2021, CT chest 06/04/2021 FINDINGS: Surgical changes and devices: None. Lungs and pleura: There is persistent moderate opacity within the right hemithorax. Based on prior CT , a portion of the opacity is related to large hiatal hernia. Mediastinum: Mediastinal contours appear normal. Heart size is normal. Bones and chest wall: No suspicious bony lesions. Overlying soft tissues appear unremarkable. IMPRESSION: Persistent right lower lobe opacity in part from large hiatal hernia. However, there is felt to be brown perimposed effusion and underlying areas of pneumonia/atelectasis cannot be excluded. Reviewed by: Kathy Lopez MD on 09/11/2021 12:00 PM PDT Approved by: Kathy Lopez MD on 09/11/2021 12:00 PM PDT Station ID: [id number]
--- NOTE | 2021-09-11 12:08 | CT Report ---
PROCEDURE: HEAD WO INDICATIONS: weakness, confusion TECHNIQUE: Noncontrast 4.5 mm thick angled axial sections acquired from the foramen magnum to the vertex. For r adiation dose reduction, the following was used: automated exposure control, adjustment of mA and/or kV according to patient size. COMPARISON: None. FINDINGS: Image quality: Excellent. The ventricular system and cortical sulci demonstrate atrophy, consistent for patient's stated age. There are areas of hypodensity in the periventricular and subcortical white matter. There is no acut e intra or extra-axial fluid collection. No acute hemorrhage, mass lesion or midline shift. Brainst em is unremarkable. Globes are symmetrical. Sinuses demonstrate minimal scattered ethmoid mucosal thickening. Osseous str uctures are intact. IMPRESSION: 1. No acute intracranial process. 2. Mild to moderate atrophy and chronic microvascular ischemic changes. Reviewed by: Kathy Lopez MD on 09/11/2021 12:07 PM PDT Approved by: Kathy Lopez MD on 09/11/2021 12:07 PM PDT Station ID: [id number]
--- NOTE | 2021-09-11 12:22 | CT Report ---
PROCEDURE: Abdomen/Pelvis WO INDICATIONS: LLQ tenderness; general weakness TECHNIQUE: Noncontrast 5 mm thick sections acquired from the diaphragms to the symphysis. 5 mm coronal and sagi ttal reformats were then performed. For radiation dose reduction, the following was used: automated exposure control, adjustment of mA and/or kV according to patient size. COMPARISON: CT abdomen pelvis 01/14/2021 FINDINGS: Image quality: Excellent. ABDOMEN: Lung bases: Prominent hiatal hernia is projecting into the right base. Small areas of superimposed co nsolidation are present. Heart size is normal. Solid organs: Liver and spleen are normal in size. Gallbladder demonstrates dependent calcification s without wall thickening Pancreas is normal in contours. No adrenal nodules. Kidneys are normal i n size, without hydronephrosis or nephrolithiasis. Peritoneum and bowel: Unenhanced bowel loops demonstrate normal wall thickness and caliber. No free fluid or air. Scattered colonic diverticula are present without associated inflammatory change. The re is a rounded low-attenuation focus, Hounsfield units measuring 4 in the left upper abdomen on seri es 3 image 29 to the left lateral the aorta measuring 1.8 x 2.3 cm. Is at the expected location of th e pancreatic tail. It is not clearly identified on prior exams. Moderate colonic stool is present. Nodes and vessels: No retroperitoneal or mesenteric adenopathy by size criteria. Aorta and inferior vena cava are normal in caliber. Miscellaneous: No ventral hernias. PELVIS: Genitourinary: Bladder wall thickness is normal. Calcifications are present within the uterus likel y fibroids. Miscellaneous: No inguinal hernias or adenopathy. Bones: No suspicious bony lesions. No vertebral body compression fractures. IMPRESSION: Prominent hiatal hernia with superimposed consolidations probably service center representative of pneumonia versus atelectasis. Cholelithiasis without imaging evidence of cholecystitis. Moderate stool. Diverticulosis. 1.8 x 2.3 cm low-attenuation cystic like structure in the left upper quadrant not clearly visualized on prior exams. Etiology is uncertain. This may represent an overlapping redundant bowel loop or cyst ic structure of other origin. It is considered an incidental finding and felt to be related to curren t indication for margin exam. Short interval nonemergent imaging follow-up with contrast is recommend ed for further evaluation. Reviewed by: Kathy Lopez MD on 09/11/2021 12:21 PM PDT Approved by: Kathy Lopez MD on 09/11/2021 12:21 PM PDT Station ID: [id number]
[2021-09-11 12:32] LABS: B. PARAPERTUSSIS- RESP PCR PAN NOT DETECTED; B. PERTUSSIS- RESP PCR PANEL NOT DETECTED; C. PNEUMONIAE- RESP PCR PANEL NOT DETECTED; CORONAVIRUS 229E-RESP PCR NOT DETECTED; CORONAVIRUS HKU1-RESP PCR NOT DETECTED; CORONAVIRUS NL63-RESP PCR NOT DETECTED; CORONAVIRUS OC43-RESP PCR NOT DETECTED; HUMAN METAPNEUMOVIRUS NOT DETECTED; INFLUENZA A- RESP PCR PANEL NOT DETECTED; INFLUENZA B - RESP PCR PANEL NOT DETECTED; M. PNEUMONIAE- RESP PCR PANEL NOT DETECTED; PARAINFLUENZA VIRUS 1 NOT DETECTED; PARAINFLUENZA VIRUS 2 NOT DETECTED; PARAINFLUENZA VIRUS 3 NOT DETECTED; PARAINFLUENZA VIRUS 4 NOT DETECTED; RHINOVIRUS/ENTEROVIRUS NOT DETECTED; RSV- RESP PCR PANEL NOT DETECTED; SARS-CoV-2 -RESP PCR PANEL NOT DETECTED
[2021-09-11 12:32] LABS: BILIRUBIN,URINE NEGATIVE (NEGATIVE); GLUCOSE, URINE (UA) NEGATIVE (NEGATIVE); KETONES,URINE (UA) NEGATIVE (NEGATIVE); LEUKOCYTE ESTERASE, URINE LARGE (NEGATIVE); NITRITE,URINE NEGATIVE (NEGATIVE); OCCULT BLOOD,URINE TRACE-INTA (NEGATIVE); PH,URINE 7.5 PH (5.0-7.5); PROTEIN,URINE NEGATIVE (NEGATIVE); UROBILINOGEN,URINE 0.2 (NORMAL) E.U./dL (NORMAL)
[2021-09-11 12:32] LABS: INR 1.6 (0.8-1.2)
[2021-09-11 12:33] LABS: CLARITY,URINE HAZY (CLEAR)
[2021-09-11 12:43] LABS: BACTERIA,URINE Few /HPF (None Seen); RBC,URINE 0-5 /HPF (0-5); SQUAMOUS EPITHELIAL CELL,UR FEW Squamous (<= Few)
[2021-09-11] MEDS ORDERED: cefTRIAXone 1 GM VIAL IVP STA (12:48)
[2021-09-11] MEDS ORDERED: DEXAMETHASONE 10 MG/ML VIAL IVP STA (13:20)
[2021-09-11 15:26] VITALS: BP 116/72
== END 2021-09-11 15:32 | disposition home or self-care (01) ==
LOC: EDUNIT# → ED 11:06
DX: R53.1 Weakness (principal); I48.91 Unspecified atrial fibrillation; Z79.01 Long term (current) use of anticoagulants; N30.00 Acute cystitis without hematuria; R40.0 Somnolence
CPT/HCPCS: 36415; 51701; 80053; 81001; 81003; 83690; 83735; 83880; 84443; 84484; 85025; 85610; 87086; 87181; 87633; 93005; 99284

== ENCOUNTER 2021-12-13 13:36 | Outpatient (CLI) | payer MEDICARE, MEDICAID ==
[2021-12-13 18:09] LABS: CALCIUM 8.9 mg/dL (8.5-10.3); CREATININE 0.9 mg/dL (0.4-1.0); POTASSIUM 4.3 mmol/L (3.5-5.0)
== END 2021-12-13 13:37 | disposition home or self-care (01) ==
LOC: LAB.N 13:36
PROVIDERS: ATTEND Internal Medicine Cardiovascular Disease
DX: I48.20 Chronic atrial fibrillation, unspecified (principal)
CPT/HCPCS: 36415; 80048

== ENCOUNTER 2022-04-21 16:48 | Outpatient (CLI) | payer MEDICARE, MEDICAID | END 2022-04-21 16:49 | disposition E | LOC: EMS 16:48 ==